=== PATIENT | female | born 1955 | race Hispanic/Latino ===

== ENCOUNTER 2017-12-12 11:01 | Emergency (ER) | payer OTHER ==
[2017-12-12] MEDS ORDERED: HYDROCODONE/APAP 7.5/325 MG TAB ONE (13:14)
--- NOTE | 2017-12-12 14:21 | ER ---
Nurse's Notes [facility] Name: Lynn Hdez Age: 62 yrs Sex: Female : 1955 Arrival Date: 12/12/2017 Time: 11:03 Bed 16 Private MD: MONTANA CIFUENTES Diagnosis: Hypertension poorly controlled, chronic back pain Presentation: 12/12 11:32 Presenting complaint: Patient states: High blood pressure readings at home. Instructed aj to come to ER by Hotel Service Supervisor. Transition of care: patient was not received from another setting of care. Onset of symptoms was December 10, 2017. Risk Assessment: Do you want to hurt yourself or someone else? Patient reports no desire to harm self or others. Initial Sepsis Screen: Does the patient meet any 2 criteria? No. Patient's initial sepsis screen is negative. Does the patient have a suspected source of infection? No. Patient's initial sepsis screen is negative. Care prior to arrival: None. 11:32 Method Of Arrival: Ambulatory 11:32 Acuity: COLTON 3 aj Triage Assessment: 11:34 General: Appears in no apparent distress. comfortable, Behavior is calm, cooperative, aj appropriate for age. Pain: Denies pain. Neuro: Level of Consciousness is awake, alert, obeys commands, Oriented to person, place, time, situation, Appropriate for age. Cardiovascular: Denies chest pain. Respiratory: Airway is patent Respiratory effort is even, unlabored, Respiratory pattern is regular, symmetrical. Derm: Skin is intact, is healthy with good turgor, Skin is pink, warm \T\ dry. normal. Historical: - Allergies: 11:34 Plavix; aj - PMHx: 11:34 Hypertension; Rheumatoid Arthritis; aj - PSHx: 11:34 CABG; Heart stents; aj - Immunization history:: Last tetanus immunization: up to date. - Social history:: Smoking status: Patient/guardian denies using tobacco. - Ebola Screening: : Patient negative for fever greater than or equal to 101.5 degrees Fahrenheit, and additional compatible Ebola Virus Disease symptoms Patient denies exposure to infectious person Patient denies travel to an Ebola-affected area in the 21 days before illness onset No symptoms or risks identified at this time. Screenin:19 Abuse screen: Denies threats or abuse. Nutritional screening: No deficits noted. em Tuberculosis screening: No symptoms or risk factors identified. Fall Risk None identified. Assessment: 12:00 General: Appears in no apparent distress. uncomfortable, Behavior is calm, cooperative. iw Pain: Complains of pain in lumbar area Pain currently is 8 out of 10 on a pain scale. Neuro: Level of Consciousness is awake, alert, obeys commands, Oriented to person, place, time, situation. Cardiovascular: Denies chest pain, Capillary refill < 3 seconds. Respiratory: Airway is patent Respiratory effort is even, unlabored, Respiratory pattern is regular, symmetrical. GI: No signs and/or symptoms were reported involving the gastrointestinal system. : No signs and/or symptoms were reported regarding the genitourinary system. EENT: No signs and/or symptoms were reported regarding the EENT system. Derm: Skin is intact, Skin is clammy. Musculoskeletal: Range of motion: intact in all extremities. 14:10 Reassessment: Patient appears in no apparent distress at this time. Patient and/or iw family updated on plan of care and expected duration. Pain level reassessed. Patient is alert, oriented x 3, equal unlabored respirations, skin warm/dry/pink. Dr. Miguel at bedside to discuss POC with pt, will go home with fentanyl patch and monitor BP 3-4 times per day. Vital Signs: 11:34 BP 173 / 62; Pulse 71; Resp 16; Temp 97.2; Pulse Ox 94% on R/A; Weight 96.62 kg; Height aj 5 ft. 2 in. (157.48 cm); 13:20 BP 160 / 74; Pulse 57; Resp 18; Pulse Ox 97% on R/A; Pain 5/10; em 14:39 BP 171 / 74; Pulse 67; Resp 18; Pulse Ox 97% on R/A; em 11:34 Body Mass Index 38.96 (96.62 kg, 157.48 cm) aj ED Course: 11:03 Patient arrived in ED. sb2 11:04 MONTANA CIFUENTES is Private Physician. sb2 11:33 Triage completed. aj 11:34 Arm band placed on left wrist. Patient placed in waiting room, Patient notified of wait aj time. 12:40 Efraín Miguel MD is Attending Physician. kdr 12:52 Lauro Mccullough LVN is Primary Nurse. em 13:19 Patient has correct armband on for positive identification. Placed in gown. Bed in low em position. Adult w/ patient. 13:19 No provider procedures requiring assistance completed. em 14:20 MONTANA CIFUENTES is Referral Physician. kdr 14:40 Patient did not have IV access during this emergency room visit. em Administered Medications: 13:10 Drug: Amigo (7.5 mg-325 mg) 1 tabs Route: PO; em 14:39 Follow up: Response: No adverse reaction; Pain is decreased em 14:38 Drug: fentaNYL Patch (50 mcg/hr) 1 patches Route: Transdermal; Site: anterior chest em wall; 14:39 Follow up: Response: Medication administered at discharge. em Outcome: 14:20 Discharge ordered by MD. kdr 14:40 Discharged to home ambulatory, with family. em 14:40 Condition: good 14:40 Discharge instructions given to patient, Instructed on discharge instructions, follow up and referral plans. Demonstrated understanding of instructions, follow-up care. 14:42 Patient left the ED. em Signatures: Malou Zaldivar RN Efraín Dean MD MD [facility] Lauro Mccullough, BREWERY TECHNICIAN BREWERY TECHNICIAN em Cora Laureano, RN PADILLA Krupa Jeter sb2
--- NOTE | 2017-12-12 14:21 | EDPHYS ---
Physician Documentation [facility] Name: Lynn Hdez Age: 62 yrs Sex: Female : 1955 Arrival Date: 12/12/2017 Time: 11:03 Bed 16 Private MD: MONTANA CIFUENTES ED Physician Efraín Miguel HPI: 12/12 17:40 This 62 yrs old Female presents to ER via Ambulatory with complaints of High kdr Blood Pressure. 17:40 The patient has elevated blood pressure and discovered this Has a long history - kdr recently poorly controlled. Onset: The symptoms/episode began/occurred gradually, at an unknown time. Modifying factors: The symptoms are aggravated by The symptoms are alleviated by. Modifying factors: The symptoms are aggravated by Nothing, The symptoms are alleviated by Nothing. Associated signs and symptoms: Pertinent positives: headache, Pertinent negatives:. Severity of symptoms: At its worst the blood pressure was moderate, in the emergency department the blood pressure is unchanged. The patient has not recently seen a physician. Historical: - Allergies: 11:34 Plavix; aj - PMHx: 11:34 Hypertension; Rheumatoid Arthritis; aj - PSHx: 11:34 CABG; Heart stents; aj - Immunization history:: Last tetanus immunization: up to date. - Social history:: Smoking status: Patient/guardian denies using tobacco. - Ebola Screening: : Patient negative for fever greater than or equal to 101.5 degrees Fahrenheit, and additional compatible Ebola Virus Disease symptoms Patient denies exposure to infectious person Patient denies travel to an Ebola-affected area in the 21 days before illness onset No symptoms or risks identified at this time. ROS: 17:40 Constitutional: Negative for fever, chills, and weight loss, Eyes: Negative for injury, kdr pain, redness, and discharge, ENT: Negative for injury, pain, and discharge, Neck: Negative for injury, pain, and swelling, Cardiovascular: Negative for chest pain, palpitations, and edema, Respiratory: Negative for shortness of breath, cough, wheezing, and pleuritic chest pain, Abdomen/GI: Negative for abdominal pain, nausea, vomiting, diarrhea, and constipation, Back: Negative for injury and pain, : Negative for injury, bleeding, discharge, and swelling, MS/Extremity: Negative for injury and deformity, Skin: Negative for injury, rash, and discoloration, Psych: Negative for depression, anxiety, suicide ideation, homicidal ideation, and hallucinations, Allergy/Immunology: Negative for hives, rash, and allergies, Endocrine: Negative for neck swelling, polydipsia, polyuria, polyphagia, and marked weight changes, Hematologic/Lymphatic: Negative for swollen nodes, abnormal bleeding, and unusual bruising. 17:40 Neuro: Positive for headache, Negative for altered mental status, dizziness, gait disturbance, hearing loss, loss of consciousness, numbness, seizure activity, speech changes, syncope, near syncope, tinnitus, tremor, visual changes, weakness. Exam: 17:40 Constitutional: This is a well developed, well nourished patient who is awake, alert, kdr and in no acute distress. Head/Face: Normocephalic, atraumatic. Eyes: Pupils equal round and reactive to light, extra-ocular motions intact. Lids and lashes normal. Conjunctiva and sclera are non-icteric and not injected. Cornea within normal limits. Periorbital areas with no swelling, redness, or edema. Neck: Trachea midline, no thyromegaly or masses palpated, and no cervical lymphadenopathy. Supple, full range of motion without nuchal rigidity, or vertebral point tenderness. No Meningismus. Chest/axilla: Normal chest wall appearance and motion. Nontender with no deformity. No lesions are appreciated. Cardiovascular: Regular rate and rhythm with a normal S1 and S2. No gallops, murmurs, or rubs. Normal PMI, no JVD. No pulse deficits. Respiratory: Lungs have equal breath sounds bilaterally, clear to auscultation and percussion. No rales, rhonchi or wheezes noted. No increased work of breathing, no retractions or nasal flaring. Abdomen/GI: Soft, non-tender, with normal bowel sounds. No distension or tympany. No guarding or rebound. No evidence of tenderness throughout. Back: No spinal tenderness. No costovertebral tenderness. Full range of motion. Skin: Warm, dry with normal turgor. Normal color with no rashes, no lesions, and no evidence of cellulitis. MS/ Extremity: Pulses equal, no cyanosis. Neurovascular intact. Full, normal range of motion. Neuro: Awake and alert, GCS 15, oriented to person, place, time, and situation. Cranial nerves II-XII grossly intact. Motor strength 5/5 in all extremities. Sensory grossly intact. Cerebellar exam normal. Normal gait. Psych: Awake, alert, with orientation to person, place and time. Behavior, mood, and affect are within normal limits. Vital Signs: 11:34 BP 173 / 62; Pulse 71; Resp 16; Temp 97.2; Pulse Ox 94% on R/A; Weight 96.62 kg; Height aj 5 ft. 2 in. (157.48 cm); 13:20 BP 160 / 74; Pulse 57; Resp 18; Pulse Ox 97% on R/A; Pain 5/10; em 14:39 BP 171 / 74; Pulse 67; Resp 18; Pulse Ox 97% on R/A; em 11:34 Body Mass Index 38.96 (96.62 kg, 157.48 cm) aj MDM: 14:20 Patient medically screened. kdr 17:40 Data reviewed: vital signs, nurses notes, lab test result(s). Counseling: I had a kdr detailed discussion with the patient and/or guardian regarding: the historical points, exam findings, and any diagnostic results supporting the discharge/admit diagnosis, lab results, the need for outpatient follow up. Administered Medications: 13:10 Drug: Talmo (7.5 mg-325 mg) 1 tabs Route: PO; em 14:39 Follow up: Response: No adverse reaction; Pain is decreased em 14:38 Drug: fentaNYL Patch (50 mcg/hr) 1 patches Route: Transdermal; Site: anterior chest em wall; 14:39 Follow up: Response: Medication administered at discharge. em Disposition: 12/12/17 14:20 Discharged to Home. Impression: Hypertension poorly controlled, chronic back pain. - Condition is Stable. - Discharge Instructions: Chronic Pain, Hypertension, [id number]. - Medication Reconciliation Form, Thank You Letter, Prescription Opioid Use form. - Follow up: MONTANA CIFUENTES; When: 2 - 3 days; Reason: If symptoms return, Further diagnostic work-up, Recheck today's complaints, Continuance of care, Re-evaluation by your physician. - Problem is an acute exacerbation. - Symptoms have improved. Signatures: Malou Zaldivar RN RN Efraín Pruett MD MD kdr Munoz, Edgar, APPLIANCE TECHNICIAN APPLIANCE TECHNICIAN em Corrections: (The following items were deleted from the chart) 14:42 14:20 12/12/2017 14:20 Discharged to Home. Impression: Hypertension poorly controlled, em chronic back pain. Condition is Stable. Forms are Medication Reconciliation Form, Thank You Letter, Antibiotic Education, Prescription Opioid Use. Follow up: MONTANA CIFUENTES; When: 2 - 3 days; Reason: If symptoms return, Further diagnostic work-up, Recheck today's complaints, Continuance of care, Re-evaluation by your physician. Problem is an acute exacerbation. Symptoms have improved. kdr
[2017-12-12] MEDS ORDERED: FENTANYL 50 MCG/PATCH TD ONE (14:39)
[2017-12-12 14:48] VITALS: TEMP 97.2
[2017-12-12 14:50] VITALS: O2SAT 97
[2017-12-12 14:52] VITALS: BP 171/74
== END 2017-12-12 14:42 | disposition home or self-care (01) ==
LOC: ER 11:01
DX: I10 Essential (primary) hypertension (principal); G89.29 Other chronic pain; Z88.8 Allergy status to other drugs, medicaments and biological substances
CPT/HCPCS: 99283

== ENCOUNTER 2018-02-17 15:23 | Observation (INO) | payer BC, OTHER ==
--- OUTSIDE RECORDS SUMMARY | 2018-02-17 15:25 | XMS REPORT | Clinical Summary ---
:1955 Author Organization [facility] Address [address] [place] [address] Care Team Providers Name Role Phone Rah Multani MD Primary Care Provider Unavailable Allergies Active Allergy Reactions Severity Noted Date Comments Clopidogrel Rash Low 01/16/2016 Medications Medication Sig Dispensed Refills Start End Status Date Date leflunomide (ARAVA) Take 20 mg by 1 Active 20 MG tablet mouth once daily. 6 RESTASIS 0.05 % INSTILL 1 DROP IN 1 Active ophthalmic emulsion BOTH EYES TWICE A 6 DAY pantoprazole TAKE 1 TABLET 3 Active (PROTONIX) 40 MG EC (40MG) BY ORAL 6 tablet ROUTE EVERY DAY HYDROcodone-acetami 0 Active nophen (NORCO) 7 5-325 mg per tablet ORENCIA 125 mg/mL 0 Active injection 7 predniSONE TAKE 1 TABLET 3 Active (DELTASONE) 5 mg DAILY NEEDED 8 tablet FOR PAIN carvedilol (COREG) Take 1 tablet (25 180 tablet 3 Active 25 MG mg total) by mouth 8 tabletIndications: 2 (two) times a Essential day. hypertension, Atherosclerosis of coronary artery, angina presence unspecified, unspecified vessel or lesion type, unspecified whether [place] or transplanted heart spironolactone Take 1 tablet 90 tablet 3 Active (ALDACTONE) 25 MG (25mg) by mouth 8 tabletIndications: daily Essential hypertension, Atherosclerosis of coronary artery, angina presence unspecified, unspecified vessel or lesion type, unspecified whether [place] or transplanted heart LUMIGAN 0.01 % 0 Active ophthalmic drops 8 rosuvastatin TAKE 1 TABLET 90 tablet 3 Active (CRESTOR) 40 MG NIGHTLY 8 tablet irbesartan (AVAPRO) Take 1 tablet (300 90 tablet 3 Active 300 MG tablet mg total) by mouth 8 019 nightly. nitroglycerin 1 under the tongue 100 tablet 3 Active (NITROSTAT) 0.4 MG as needed for 8 019 SL tablet angina, may repeat q5mins for up three doses hydrALAZINE Take 1 tablet (25 90 tablet 11 Active (APRESOLINE) 25 MG mg total) by mouth 8 019 tablet 3 (three) times a day. Use it as needed for a systolic BP over 180mmHg. carvedilol (COREG) TAKE 1 TABLET 180 tablet 1 Discontinued 25 MG tablet TWICE A DAY 7 018 spironolactone spironolactone 25 0 Discontinued (ALDACTONE) 25 MG mg tablet 018 tablet adalimumab (HUMIRA) Inject 40 mg under 0 Discontinued 20 mg/0.4 mL the skin every 14 018 injection kit (fourteen) days. metFORMIN XR Take 2 tablets 0 Discontinued (GLUCOPHAGE-XR) 750 every day by oral 018 mg 24 hr tablet route for 90 days. travoprost Travatan Z 0.004 % 0 Discontinued (TRAVATAN Z) 0.004 eye drops 018 % valsartan (DIOVAN) TAKE 1 TABLET 90 tablet 1 Discontinued 320 MG tablet DAILY 7 018 spironolactone TAKE 1 TABLET 90 tablet 2 Discontinued (ALDACTONE) 25 MG DAILY 7 018 tablet amLODIPine Take 1 tablet (5 90 tablet 3 Discontinued (NORVASC) 5 mg mg total) by mouth 7 018 tablet daily. valsartan (DIOVAN) TAKE 1 TABLET 90 tablet 3 Discontinued 320 MG tablet NIGHTLY 7 018 rosuvastatin TAKE 1 TABLET 90 tablet 3 Discontinued (CRESTOR) 40 MG NIGHTLY 7 018 tablet spironolactone TAKE 1 TABLET 90 tablet 2 Discontinued (ALDACTONE) 25 MG DAILY 8 018 tablet valsartan (DIOVAN) Take 1 tablet (320 90 tablet 3 Discontinued 320 MG mg total) by mouth 8 018 tabletIndications: nightly. Essential hypertension, Atherosclerosis of coronary artery, angina presence unspecified, unspecified vessel or lesion type, unspecified whether [place] or transplanted heart valsartan (DIOVAN) Take 1 tablet (320 30 tablet 3 Discontinued 320 MG mg total) by mouth 8 018 tabletIndications: nightly. Essential hypertension, Atherosclerosis of coronary artery, angina presence unspecified, unspecified vessel or lesion type, unspecified whether [place] or transplanted heart RESTASIS MULTIDOSE 0 Discontinued 0.05 % drops 8 018 irbesartan (AVAPRO) Take 1 tablet (300 90 tablet 3 Discontinued 300 MG tablet mg total) by mouth 8 018 nightly. Active Problems Problem Noted Date Venous insufficiency 02/11/2018 Last Assessment & Plan: Patient with symptomatic venous insufficiency. We discussed the etiology of venous disease in terms of obstruction and reflux. We used a wall anatomical chart to explain the various venous segments of involvement. The normal venous function and disorders of valvular reflux was discussed as well. Treatment options including venous stenting or reconstruction, venous ablation vs. stripping, phlebecto mies, sclerotherapy and compression treatment were all discussed. We discussed problems with persistent or recurrent symptoms. Risks including bleeding, DVT, nerve injury, infection, hematomas, and scarring we all covered. Reflux study from today reviewed by me. Plan: Rx given for 20-30 mmHg knee high compression stockings. I have also recommended elevating her legs when she is sitting around and staying active. 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 RTC in 2 months. 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 (Primary Dx) 11/13/2017 Hospital Radiology Rafita Pak Spinal stenosis of Encounter KMD Claribel lumbar region with neurogenic claudication 11/13/2017 Office Visit Orthopedic Surgery Rafita Pak Spinal stenosis aidan Spain MD lumbar region with neurogenic claudication (Primary Dx) 10/30/2017 Refill Cardiology Bekric, Sejla, Med Refill MA 10/22/2017 Orders Only Cardiology Buck, Jessi Y Essential hypertension; Atherosclerosis of coronary artery, angina presence unspecified, unspecified vessel or lesion type, unspecified whether [place] or transplanted heart 10/22/2017 Orders Only Cardiology Benjamin Stiles MD 10/03/2017 Office Visit Cardiology Linsey, Essential hypertension ( Primary Dx); Benjamin Alamo MD Atherosclerosis of coronary artery, angina presence unspecified, unspecified vessel or lesion type, unspecified whether [place] or transplanted heart 06/07/2017 Refill Cardiology Linsey, Med Refill Benjamin Alamo MD after 02/16/2017 Family History Medical History Relation Name Comments Heart disease Brother Heart disease Brother Diabetes Brother Ankit Cancer Father [place] Rheumatologic disease Maternal Uncle Ankit Heart disease Mother Heart disease Sister Cancer Sister Cynthia Diabetes Sister Cynthia Relation Name Status Comments Brother Brother Brother Ankit Father [place] Maternal Uncle Ankit Mother Sister Sister Cynthia Social History Tobacco Use Types Packs/Day Years Used Date Former Smoker Smokeless Tobacco: Never Used Tobacco Cessation: Counseling Given: No Comments: quit 37 yeras ago Alcohol Use Drinks/Week oz/Week Comments Yes occasional Sex Assigned at Date Recorded Not on file Job Start Date Occupation Industry Not on file Not on file Not on file Travel History Travel Start Travel End No recent travel history available. Last Filed Vital Signs Vital Sign Reading Time Taken Blood Pressure 185/76 02/11/2018 12:29 PM DIETITIAN HELPER Pulse 72 02/11/2018 12:29 PM DIETITIAN HELPER Temperature 36.6 C (97.9 F) 02/11/2018 12:29 PM DIETITIAN HELPER Respiratory Rate - - Oxygen Saturation - - Inhaled Oxygen Concentration - - Weight 95.3 kg (210 lb) 02/11/2018 12:29 PM DIETITIAN HELPER Height 157.5 cm (5' 2") 02/11/2018 12:29 PM DIETITIAN HELPER Body Mass Index 38.41 02/11/2018 12:29 PM DIETITIAN HELPER Plan of Treatment Date Type Specialty Care Team Description 04/15/2018 Office Visit Cardiovascular Philipp Horton MD [address] [facility] [address] [place] [address] [phone] 04/27/2018 Office Visit Rheumatology Adrián Yu MD [address] [place] [address] [phone] 06/26/2018 Office Visit Cardiology Benjamin Stiles MD [address] [facility] [address] [place] [address] [phone] Health Maintenance Due Date Last Done Comments MMR VACCINES (1 of 1 - Standard 1958 series) CERVICAL CANCER SCREENING 1978 BREAST CANCER SCREENING 07/23/2007 COLON CANCER SCREENING 07/23/2007 SHINGRIX VACCINE (1 of 2) 07/23/2007 ZOSTER VACCINE 2017 INFLUENZA VACCINE 11/05/2017 HEPATITIS B VACCINES Aged Out No longer eligible based on patient's age to complete this topic IPV VACCINES Aged Out No longer eligible based on patient's age to complete this topic MENINGOCOCCAL VACCINE Aged Out No longer eligible based on patient's age to complete this topic VARICELLA VACCINES Aged Out No longer eligible based on patient's age to complete this topic Implants Implanted Type Area System Administrator Device Shelf Model / Identifier Expiration Serial / Date Lot Nufix 5.0 Mm Lilibeth - [id number] - [id number] Spinal Bilateral NUTECH [id number] / Implanted: Qty: 1 on 05/17/2016 by Rafita Pak MD Implants : Back, [id number] / Other [id number] than Spine Nufix 5.0 Mm Dowel - [id number] - [id number] Spinal Bilateral NUTECH [id number] / Implanted: Qty: 1 on 05/17/2016 by Rafita Pak MD Implants : Back, [id number] / Other [id number] than Spine Procedures Procedure Name Priority Date/Time Associated Diagnosis Comments MRI LUMBAR SPINE W STAT 11/13/2017 1:17 Spinal stenosis of Results for this WO CONTRAST PM CDT lumbar region with procedure are in neurogenic the results claudication section. ESTIMATED GFR Routine 11/13/2017 12:45 Results for this PM CDT procedure are in the results section. POC CREATININE Routine 11/13/2017 12:45 Results for this PM CDT procedure are in the results section. NM MYOCARDIAL Routine 10/21/2017 Results for this PERFUSION procedure are in the results section. NM MYOCARDIAL Routine 10/05/2017 PERFUSION ECG 12-LEAD Routine 10/03/2017 9:01 Essential Results for this AM CDT hypertension procedure are in the results section. after 02/16/2017 Results MRI Lumbar Spine W Wo Contrast (11/13/2017 1:17 PM CDT) Narrative Performed At EXAMINATION:MRI LUMBAR SPINE W WO CONTRAST [facility] CLINICAL HISTORY:M48.062 Spinal stenosislumbar region with neurogenic claudication, SCS COMPARISON:MRI lumbar spine November 12, 2016. FINDINGS: L5-S1: There is marked spondylosis and degenerative change in the disc. There is grade 1 spondylolisthesis of L5 in relation S1 with bilateral spondylolysis at L5. There is moderate dorsal bulging of t he disc with possible subarticular disc protrusion again noted on the left side.. There is no spinal canal stenosis. There is marked foraminal stenosis bilaterally. L4-5: There is moderate to marked disc space narrowing, mild spondylosis and loss of normal signal intensity in the disc. There is grade 1 spondylolisthesis of L4 in relation L5 with marked degenerative and hypertrophic changes in the facet joints. There are postoperative laminotomy changes bilaterally. There is broad dorsal bulging of the disc. There is moderate to marked (6 mm) thecal sac stenosis. There is marked foraminal stenosis bilaterally. L3-4: There is mild spondylosis and loss of normal signal intensity in the disc. There is slight retrolisthesis of L3 in relation L4. There is very mild dorsal bulging of the disc. There are moderate hy pertrophic changes the facet joints and thickening of the ligamentum flavum. These changes result in moderate to marked (6 mm) thecal sac stenosis. There is at least moderate foraminal stenosis bilaterally. L2-3: There is slight retrolisthesis of L2 in relation L3. There is some mild spondylosis, disc space narrowing and loss of normal signal intensity in the disc. There is mild dorsal bulging of the disc and there are moderate degenerative and hypertrophic changes in the facet joints. There is no significant spinal canal stenosis. There is moderate foraminal stenosis bilaterally with some extension of the disc into the inferior neural foramina bilaterally. L1-2: There is no significant abnormality at this level. Imaging of the thoracolumbar junction in the sagittal plane only demonstrates marked ventral spondylosis and mild degenerative changes in the discs at T10-11 and T9-10 without stenosis. There is no evidence of a conus lesion. IMPRESSION: Postoperative and marked degenerative changes in the lumbar spine with multilevel spinal canal and foraminal stenosis.. The spinal canal stenosis at L4 -5 and L3-4 appears slightly greater than that seen on the prior study. Otherwise there's been no definite interval change. [facility]-[id number] Procedure Note Hm Interface, Radiology Results - 11/13/2017 2:11 PM CDT EXAMINATION: MRI LUMBAR SPINE W WO CONTRAST CLINICAL HISTORY: M48.062 Spinal stenosis lumbar region with neurogenic claudication, SCS COMPARISON: MRI lumbar spine November 12, 2016. FINDINGS: L5-S1: There is marked spondylosis and degenerative change in the disc. There is grade 1 spondylolisthesis of L5 in relation S1 with bilateral spondylolysis at L5. There is moderate dorsal bulging of the disc with possible subarticular disc protrusion again noted on the left side.. There is no spinal canal stenosis. There is marked foraminal stenosis bilaterally. L4-5: There is moderate to marked disc space narrowing, mild spondylosis and loss of normal signal intensity in the disc. There is grade 1 spondylolisthesis of L4 in relation L5 with marked degenerative and hypertrophic changes in the facet joints. There are postoperative laminotomy changes bilaterally. There is broad dorsal bulging of the disc. There is moderate to marked (6 mm) thecal sac stenosis. There is marked foraminal stenosis bilaterally. L3-4: There is mild spondylosis and loss of normal signal intensity in the disc. There is slight retrolisthesis of L3 in relation L4. There is very mild dorsal bulging of the disc. There are moderate hypertrophic changes the facet joints and thickening of the ligamentum flavum. These changes result in moderate to marked (6 mm) thecal sac stenosis. There is at least moderate foraminal stenosis bilaterally. L2-3: There is slight retrolisthesis of L2 in relation L3. There is some mild spondylosis, disc space narrowing and loss of normal signal intensity in the disc. There is mild dorsal bulging of the disc and there are moderate degenerative and hypertrophic changes in the facet joints. There is no significant spinal canal stenosis. There is moderate foraminal stenosis bilaterally with some extension of the disc into the inferior neural foramina bilaterally. L1-2: There is no significant abnormality at this level. Imaging of the thoracolumbar junction in the sagittal plane only demonstrates marked ventral spondylosis and mild degenerative changes in the discs at T10-11 and T9-10 without stenosis. There is no evidence of a conus lesion. IMPRESSION: Postoperative and marked degenerative changes in the lumbar spine with multilevel spinal canal and foraminal stenosis.. The spinal canal stenosis at L4 -5 and L3-4 appears slightly greater than that seen on the prior study. Otherwise there's been no definite interval change. [facility]-[id number] Performing Organization Address City/State/Zipcode Phone Number [facility] [address] [place] [address] Estimated GFR (11/13/2017 12:45 PM CDT) GFR Non Af Amer >90 mL/min/1.73 m2 [facility] DEPARTMENT OF PATHOLOGY AND GENOMIC MEDICINE GFR Af Amer >90 mL/min/1.73 m2 [facility] DEPARTMENT OF Comment: PATHOLOGY AND GENOMIC Chronic kidney disease: <60 mL/min/1.73m2 MEDICINE Kidney failure: <15 mL/min/1.73m2 The estimated GFR is calculated from the IDMS-traceable Modification of Diet in Renal Disease Equation. The accuracy of the calculation is poor when the creatinine is normal. Calculated values >90 mL/min/1.73m2 are not reported. This equation has not been validated in children (<18 years), women, the elderly (>70 years), or ethnic groups other than Caucasians and Americans. Specimen Blood Performing Organization Address City/State/Zipcode Phone Number [facility] DEPARTMENT OF PATHOLOGY AND [address] [place] [address] GENOMIC MEDICINE POC creatinine (11/13/2017 12:45 PM CDT) POC creatinine 0.6 0.5 - 0.9 mg/dl [facility] DEPARTMENT OF PATHOLOGY Comment: AND GENOMIC MEDICINE Meter ID: [id number] Silicator: Karen Yao Specimen Blood Performing Organization Address [facility] Phone Number [facility] DEPARTMENT OF PATHOLOGY AND [address] [place] [address] GENOMIC MEDICINE Nm myocardial perfusion (10/21/2017)Only the most recent of2 resultswithin the time period is included. Narrative Performed At ECG 12 lead (10/03/2017 9:01 AM CDT) Ventricular rate 54 [facility] Atrial rate 54 [facility] SC interval 132 [facility] QRSD interval 100 [facility] QT interval 444 [facility] QTC interval 421 [facility] P axis 1 32 [facility] QRS axis 1 74 [facility] T wave axis 98 [facility] EKG impression Sinus bradycardia with sinus arrhythmia-Incomplete right bundle branch block-Nonspecific T wave abnormality-Abnormal ECG-In automated comparison with ECG of 13-NOV-2016 13:42,-Nonspecific T wave abnorma [facility] lity, worse in Lateral leads- Performing Organization Address City/[facility] Phone Number [facility] MUSE [address] [place] [address] after 02/16/2017 Insurance Payer Benefit Plan / Group Subscriber ID Type Phone Address BCBS BCBS CHOICE PPO/[employer] PPO xxxxxxxxxxxx PPO Advance Directives Patient has advance care planning documents on file. For more information, please contact:Clint Dubon[address] [place] [address]
[2018-02-17 16:06] LABS: Absolute Monocytes 0.9 K/uL (0.1-1.3); Absolute Neutrophil 5.3 K/uL (1.8-8.0); Basophils % 0.8 % (0-1.3); Hematocrit 44.1 % (36.0-45.0); Lymphocytes % 23.5 % (15.3-44.8); MCH 29.4 pg (27.0-35.0); MCV 87.2 fL (80-100); MPV 9.9 fL (7.6-11.3); Monocytes % 10.3 % (3.3-12.3); RBC Red Blood Cell Count 5.06 M/uL (3.86-4.86)
[2018-02-17 16:07] LABS: Protime INR 0.92
[2018-02-17 16:22] LABS: ALT/SGPT 32 U/L (12-78); AST/SGOT 20 U/L (15-37); Albumin 3.4 g/dL (3.4-5.0); Alkaline Phosphatase 74 U/L (45-117); BUN Blood Urea Nitrogen 16 mg/dL (7-18); Bicarbonate 28 mmol/L (21-32); Bilirubin Direct 0.1 mg/dL (0-0.2); Bilirubin Total 0.4 mg/dL (0.2-1.0); Glucose Level 137 mg/dL (74-106); Lipase 194 U/L (73-393); NT PRO-BNP 137 pg/mL (<125); Potassium 3.8 mmol/L (3.5-5.1); Protein, Total 7.1 g/dL (6.4-8.2); Sodium Level 141 mmol/L (136-145); Troponin I < 0.02 ng/mL (0.0-0.045)
--- NOTE | 2018-02-17 17:13 | ER ---
Nurse's Notes [facility] Name: Lynn Hdez Age: 62 yrs Sex: Female : 1955 Arrival Date: 02/17/2018 Time: 15:27 Bed 7 Private MD: Diagnosis: Chest pain, unspecified;Essential (primary) hypertension Presentation: 02/17 15:30 Presenting complaint: Patient states: left sided chest pain with radiation to the left sv face, neck, shoulder and arm x 1 day. c/o SOB and fatigue over the last couple of weeks. Transition of care: patient was not received from another setting of care. Onset of symptoms was February 16, 2018. Risk Assessment: Do you want to hurt yourself or someone else? Patient reports no desire to harm self or others. Initial Sepsis Screen: Does the patient meet any 2 criteria? No. Patient's initial sepsis screen is negative. Does the patient have a suspected source of infection? No. Patient's initial sepsis screen is negative. Care prior to arrival: None. 15:30 Method Of Arrival: Wheelchair sv 15:30 Acuity: COLTON 3 sv Triage Assessment: 15:30 General: Appears in no apparent distress. uncomfortable, well developed, Behavior is sv calm, cooperative, appropriate for age. Pain: Complains of pain in left side of forehead, left temporal area, left eye, left voodoo, left side of the nose, left zygomatic area, left cheek, left mandible, anterior aspect of left upper chest, left breast, left arm and left posterior aspect of neck Pain currently is 7 out of 10 on a pain scale. Quality of pain is described as sharp, Pain began 1 day ago. Is intermittent. EENT: No signs and/or symptoms were reported regarding the EENT system. Neuro: Level of Consciousness is awake, alert, obeys commands, Oriented to person, place, time, situation, Moves all extremities. Full function Gait is steady, Speech is normal. Cardiovascular: Patient's skin is warm and dry. Rhythm is sinus bradycardia. Respiratory: Reports shortness of breath on exertion Respiratory effort is even, unlabored, Respiratory pattern is regular, symmetrical. Derm: Skin is pink, warm \T\ dry. Historical: - Allergies: 15:55 Plavix; sv - Home Meds: 15:55 Coreg 25 mg Oral tab [Active]; irbesartan 300 mg oral tab [Active]; spironolactone 25 sv mg Oral tab [Active]; rosuvastatin 40 mg oral tab [Active]; aspirin 81 mg Oral chew [Active]; Protonix 40 mg Oral grps [Active]; leflunomide 20 mg oral tab [Active]; prednisone 5 mg Oral tab [Active]; Orencia 125 mg/mL subcutaneous syrg [Active]; hydralazine 25 mg Oral tab TID prn [Active]; nitroglycerin 0.4 mg SL subl 1 tab every 5 minutes [Active]; - PMHx: 15:55 Hypertension; Rheumatoid Arthritis; sv - PSHx: 15:55 CABG; Heart stents; Hysterectomy; sv - Immunization history:: Flu vaccine is up to date. - Social history:: Smoking status: Patient/guardian denies using tobacco, Patient uses alcohol, but reports only rare drinking. - Ebola Screening: : No symptoms or risks identified at this time. - Family history:: not pertinent. Screenin:17 Abuse screen: Denies threats or abuse. Denies injuries from another. Nutritional sv screening: No deficits noted. Tuberculosis screening: No symptoms or risk factors identified. Fall Risk None identified. Assessment: 16:20 Reassessment: Patient and/or family updated on plan of care and expected duration. Pain sv level reassessed. Patient is alert, oriented x 3, equal unlabored respirations, skin warm/dry/pink. Cardiovascular: Heart tones S1 S2 present. Respiratory: Respiratory effort is even, unlabored, Respiratory pattern is regular, symmetrical, Breath sounds are clear bilaterally. 17:30 Reassessment: Patient appears in no apparent distress at this time. No changes from sv previously documented assessment. Patient and/or family updated on plan of care and expected duration. Pain level reassessed. Patient is alert, oriented x 3, equal unlabored respirations, skin warm/dry/pink. 18:25 Reassessment: Patient appears in no apparent distress at this time. No changes from sv previously documented assessment. Patient and/or family updated on plan of care and expected duration. Pain level reassessed. Patient is alert, oriented x 3, equal unlabored respirations, skin warm/dry/pink. 19:27 Reassessment: Patient appears in no apparent distress at this time. Patient is alert, lp1 oriented x 3, equal unlabored respirations, skin warm/dry/pink. Patient denies pain at this time. Reassessment: Patient aware of pending admission; ambulated independently to bathroom at this time. Pain: Complains of pain in chest Pain does not radiate. Vital Signs: 15:55 BP 187 / 78; Pulse 58; Resp 20; Pulse Ox 96% ; Weight 95.25 kg; Height 5 ft. 2 in. sv (157.48 cm); Pain 7/10; 16:11 BP 150 / 64; Pulse 54; Resp 20; Pulse Ox 98% on 2 lpm NC; sv 16:50 BP 167 / 56; Pulse 59; Resp 24; Pulse Ox 98% on 2 lpm NC; sv 17:30 BP 171 / 62; Pulse 55; Resp 14; Pulse Ox 99% on 2 lpm NC; sv 18:00 BP 141 / 56; Pulse 52; Resp 18; Pulse Ox 99% on 2 lpm NC; sv 18:30 BP 111 / 56; Pulse 62; Resp 20; Pulse Ox 99% on 2 lpm NC; sv 19:22 BP 133 / 59; Pulse 60; Resp 22; Temp 97.6(O); Pulse Ox 97% on R/A; lp1 19:37 BP 139 / 61; Pulse 54; Resp 20; Pulse Ox 97% on R/A; Pain 0/10; lp1 15:55 Body Mass Index 38.41 (95.25 kg, 157.48 cm) sv ED Course: 15:27 Patient arrived in ED. as 15:30 Terrie Dave, RN is Primary Nurse. sv 15:30 Arm band placed on Patient placed in an exam room, on a stretcher, on site monitor, sv on pulse oximetry. 15:30 Patient has correct armband on for positive identification. Placed in gown. Bed in low sv position. Call light in reach. Adult w/ patient. air sampling and monitoring on. Pulse ox on. NIBP on. Door closed. Head of bed elevated. 15:33 Rambo Palomares MD is Attending Physician. [facility] 15:40 Initial lab(s) drawn, by me, sent to lab. Inserted saline lock: 20 gauge in right sv antecubital area, using aseptic technique. Blood collected. Flushed right forearm with 5 ml normal saline. 15:40 Oxygen administration via nasal cannula \T\ 2L/min. sv 15:52 Triage completed. sv 16:05 Protime (+INR) Sent. sv 16:05 CBC with Automated Diff Sent. sv 16:05 Lipase Sent. sv 16:05 Magnesium Sent. sv 16:05 NT PRO-BNP Sent. sv 16:05 Troponin I Sent. sv 16:05 Liver (Hepatic) Function Sent. sv 16:05 Basic Metabolic Panel Sent. sv 16:06 Basic Metabolic Panel Sent. sv 16:06 CBC with Diff Sent. sv 16:14 EKG done, by oil bay technician. reviewed by Rambo Palomares MD. sm3 16:30 Awaiting ED provider evaluation. sv 16:50 ED physician to see patient. sv 16:55 X-ray completed. Portable x-ray completed in exam room. Patient tolerated procedure jb2 well. 16:56 XRAY Chest (1 view) In Process Unspecified. EDMS 17:12 Germaine Perkins MD is Hospitalizing Provider. parker 18:26 Awaiting bed assignment. sv 19:05 Report given to Yael CUASEY and Kym CAUSEY. sv 19:06 Primary Nurse role handed off by Terrie Dave RN sv 19:21 Yael Tsai RN is Primary Nurse. lp1 19:23 No provider procedures requiring assistance completed. Patient admitted, IV remains in lp1 place. Administered Medications: 17:30 Drug: Aspirin 162 mg Route: PO; sv 18:25 Follow up: Response: No adverse reaction sv 17:30 Drug: Lovenox 1 mg/kg Route: Sub-Q; Site: right lower abdomen; sv 18:24 Follow up: Response: No adverse reaction sv 17:30 Drug: morphine 2 mg Route: IVP; Site: right antecubital; sv 18:24 Follow up: Response: No adverse reaction sv 17:30 Drug: Zofran 4 mg Route: IVP; Site: right antecubital; sv 18:24 Follow up: Response: No adverse reaction sv 18:30 Not Given ( cancelled): NS 0.9% 1000 ml IV at 125 ml/hr continuous sv Outcome: 17:12 Decision to Hospitalize by Provider. parker 19:23 Condition: stable lp1 19:23 Instructed on the need for admit. 19:39 Admitted to Tele accompanied by tech, via wheelchair, room 419, with chart, Report lp1 called to PADILLA Chavarria 20:00 Patient left the ED. lp1 Signatures: Dispatcher [employer] EDMS Terrie Dave RN RN sv Anderson, Corey, MD MD cha Buechter, Jesse jb2 Jyothi Nguyen Laura, RN RN lp1 Jaquelin Olvera sm3 Corrections: (The following items were deleted from the chart) 19:27 19:22 BP 133 / 59; Pulse 60bpm; Resp 22bpm; Pulse Ox 97% 2 lpm Nasal Cannula; lp1 lp1 19:38 19:37 BP 139 / 61; Pulse 54bpm; Resp 20bpm; Pulse Ox 97% RA; lp1 lp1 20:21 20:20 Patient left the ED. lp1 lp1
--- NOTE | 2018-02-17 17:14 | EDPHYS ---
Physician Documentation [facility] Name: Lynn Hdez Age: 62 yrs Sex: Female : 1955 Arrival Date: 02/17/2018 Time: 15:27 Bed 7 Private MD: ROLANDO Physician Rambo Palomares HPI: 02/17 17:08 This 62 yrs old Female presents to ER via Wheelchair with complaints of Chest parker Pain, Shortness Of Breath, Back Pain, Neck Pain, <24hrs Old. 17:08 The patient or guardian reports chest pain that is located primarily in the anterior parker chest wall, left. Onset: today. The pain radiates to left neck, Associated signs and symptoms: Pertinent positives: shortness of breath. The chest pain is described as a pressure. Modifying factors: The symptoms are alleviated by nothing. the symptoms are aggravated by nothing. The patient has not experienced similar symptoms in the past. Historical: - Allergies: 15:55 Plavix; sv - Home Meds: 15:55 Coreg 25 mg Oral tab [Active]; irbesartan 300 mg oral tab [Active]; spironolactone 25 sv mg Oral tab [Active]; rosuvastatin 40 mg oral tab [Active]; aspirin 81 mg Oral chew [Active]; Protonix 40 mg Oral grps [Active]; leflunomide 20 mg oral tab [Active]; prednisone 5 mg Oral tab [Active]; Orencia 125 mg/mL subcutaneous syrg [Active]; hydralazine 25 mg Oral tab TID prn [Active]; nitroglycerin 0.4 mg SL subl 1 tab every 5 minutes [Active]; - PMHx: 15:55 Hypertension; Rheumatoid Arthritis; sv - PSHx: 15:55 CABG; Heart stents; Hysterectomy; sv - Immunization history:: Flu vaccine is up to date. - Social history:: Smoking status: Patient/guardian denies using tobacco, Patient uses alcohol, but reports only rare drinking. - Ebola Screening: : No symptoms or risks identified at this time. - Family history:: not pertinent. ROS: 17:08 Constitutional: Negative for fever, chills, and weight loss, Eyes: Negative for injury, parker pain, redness, and discharge, ENT: Negative for injury, pain, and discharge, Neck: Negative for injury, pain, and swelling, Respiratory: Negative for shortness of breath, cough, wheezing, and pleuritic chest pain, Abdomen/GI: Negative for abdominal pain, nausea, vomiting, diarrhea, and constipation, Back: Negative for injury and pain, : Negative for injury, bleeding, discharge, and swelling, MS/Extremity: Negative for injury and deformity, Skin: Negative for injury, rash, and discoloration, Neuro: Negative for headache, weakness, numbness, tingling, and seizure, Psych: Negative for depression, anxiety, suicide ideation, homicidal ideation, and hallucinations, Allergy/Immunology: Negative for hives, rash, and allergies, Endocrine: Negative for neck swelling, polydipsia, polyuria, polyphagia, and marked weight changes. 17:08 Cardiovascular: Positive for chest pain. Exam: 17:08 Constitutional: This is a well developed, well nourished patient who is awake, alert, parker and in no acute distress. Head/Face: Normocephalic, atraumatic. Eyes: Pupils equal round and reactive to light, extra-ocular motions intact. Lids and lashes normal. Conjunctiva and sclera are non-icteric and not injected. Cornea within normal limits. Periorbital areas with no swelling, redness, or edema. ENT: Nares patent. No nasal discharge, no septal abnormalities noted. Tympanic membranes are normal and external auditory canals are clear. Oropharynx with no redness, swelling, or masses, exudates, or evidence of obstruction, uvula midline. Mucous membranes moist. Neck: Trachea midline, no thyromegaly or masses palpated, and no cervical lymphadenopathy. Supple, full range of motion without nuchal rigidity, or vertebral point tenderness. No Meningismus. Chest/axilla: Normal chest wall appearance and motion. Nontender with no deformity. No lesions are appreciated. Cardiovascular: Regular rate and rhythm with a normal S1 and S2. No gallops, murmurs, or rubs. Normal PMI, no JVD. No pulse deficits. Respiratory: Lungs have equal breath sounds bilaterally, clear to auscultation and percussion. No rales, rhonchi or wheezes noted. No increased work of breathing, no retractions or nasal flaring. Back: No spinal tenderness. No costovertebral tenderness. Full range of motion. Female : Normal external genitalia. Skin: Warm, dry with normal turgor. Normal color with no rashes, no lesions, and no evidence of cellulitis. MS/ Extremity: Pulses equal, no cyanosis. Neurovascular intact. Full, normal range of motion. Neuro: Awake and alert, GCS 15, oriented to person, place, time, and situation. Cranial nerves II-XII grossly intact. Motor strength 5/5 in all extremities. Sensory grossly intact. Cerebellar exam normal. Normal gait. Psych: Awake, alert, with orientation to person, place and time. Behavior, mood, and affect are within normal limits. 17:08 Chest/axilla: Inspection: normal, Palpation: is normal, no acute changes, Axilla: are normal, Breasts: are normal, no acute changes. 17:08 Abdomen/GI: Inspection: abdomen appears normal, Bowel sounds: normal, Palpation: nontender. Vital Signs: 15:55 BP 187 / 78; Pulse 58; Resp 20; Pulse Ox 96% ; Weight 95.25 kg; Height 5 ft. 2 in. sv (157.48 cm); Pain 7/10; 16:11 BP 150 / 64; Pulse 54; Resp 20; Pulse Ox 98% on 2 lpm NC; sv 16:50 BP 167 / 56; Pulse 59; Resp 24; Pulse Ox 98% on 2 lpm NC; sv 17:30 BP 171 / 62; Pulse 55; Resp 14; Pulse Ox 99% on 2 lpm NC; sv 18:00 BP 141 / 56; Pulse 52; Resp 18; Pulse Ox 99% on 2 lpm NC; sv 18:30 BP 111 / 56; Pulse 62; Resp 20; Pulse Ox 99% on 2 lpm NC; sv 19:22 BP 133 / 59; Pulse 60; Resp 22; Temp 97.6(O); Pulse Ox 97% on R/A; lp1 19:37 BP 139 / 61; Pulse 54; Resp 20; Pulse Ox 97% on R/A; Pain 0/10; lp1 15:55 Body Mass Index 38.41 (95.25 kg, 157.48 cm) sv MDM: 15:33 Patient medically screened. [facility] 17:11 Data reviewed: vital signs, nurses notes, lab test result(s), EKG, radiologic studies, [facility] plain films. 02/17 15:37 Order name: Basic Metabolic Panel [facility] 02/17 15:37 Order name: CBC with Diff [facility] 02/17 15:37 Order name: LFT's [facility] 02/17 15:37 Order name: Magnesium [facility] 02/17 15:37 Order name: NT PRO-BNP [facility] 02/17 15:37 Order name: PT-INR [facility] 02/17 15:37 Order name: Troponin (emerg Dept Use Only) [facility] 02/17 15:37 Order name: Lipase [facility] 02/17 15:57 Order name: Basic Metabolic Panel [facility] 02/17 15:57 Order name: CBC with Automated Diff [facility] 02/17 15:58 Order name: Basic Metabolic Panel; Complete Time: 16:53 [facility] 02/17 15:58 Order name: Liver (Hepatic) Function; Complete Time: 16:53 [facility] 02/17 15:58 Order name: Troponin I; Complete Time: 16:53 [facility] 02/17 15:58 Order name: NT PRO-BNP; Complete Time: 16:53 [facility] 02/17 15:37 Order name: XRAY Chest (1 view); Complete Time: 19:[address] [facility] 02/17 15:37 Order name: EKG; Complete Time: 15:[address] [facility] 02/17 15:37 Order name: Cardiac monitoring; Complete Time: 15:[address] [facility] 02/17 15:37 Order name: EKG - Nurse/Tech; Complete Time: 15:[address] [facility] 02/17 15:37 Order name: IV Saline Lock; Complete Time: 16:[address] [facility] 02/17 15:58 Order name: Magnesium; Complete Time: 16:53 [facility] 02/17 15:58 Order name: Lipase; Complete Time: 16:53 [facility] 02/17 15:58 Order name: CBC with Automated Diff; Complete Time: 16:53 [facility] 02/17 15:58 Order name: Protime (+INR); Complete Time: 16:53 [facility] 02/17 17:17 Order name: CONS Physician Consult [facility] 02/17 19:32 Order name: Urine Dipstick--Ancillary (enter results) [facility] 02/17 15:37 Order name: Labs collected and sent; Complete Time: 16:[address] [facility] 02/17 15:37 Order name: O2 Per Protocol; Complete Time: 15:[address] [facility] 02/17 15:37 Order name: O2 Sat Monitoring; Complete Time: 15:[address] [facility] 02/17 15:37 Order name: Urine Dipstick-Ancillary (obtain specimen); Complete Time: 19:22 parker Administered Medications: 17:30 Drug: Aspirin 162 mg Route: PO; sv 18:25 Follow up: Response: No adverse reaction sv 17:30 Drug: Lovenox 1 mg/kg Route: Sub-Q; Site: right lower abdomen; sv 18:24 Follow up: Response: No adverse reaction sv 17:30 Drug: morphine 2 mg Route: IVP; Site: right antecubital; sv 18:24 Follow up: Response: No adverse reaction sv 17:30 Drug: Zofran 4 mg Route: IVP; Site: right antecubital; sv 18:24 Follow up: Response: No adverse reaction sv 18:30 Not Given (MD cancelled): NS 0.9% 1000 ml IV at 125 ml/hr continuous sv Disposition: 02/17/18 17:12 Hospitalization ordered by Germaine Perkins for Observation. Preliminary diagnosis are Chest pain, unspecified, Essential (primary) hypertension. - Bed requested for Telemetry/MedSurg (observation). - Status is Observation. lp1 - Condition is Fair. - Problem is new. - Symptoms have improved. UTI on Admission? No Signatures: Dispatcher [employer] EDMS Nicole Iglesias Stephanie, RN RN Rambo Harrington MD MD cha Pena, Laura RN RN lp1 Corrections: (The following items were deleted from the chart) 18:49 17:12 Hospitalization Ordered by Germaine Perkins MD for Observation. Preliminary bd diagnosis is Chest pain, unspecified; Essential (primary) hypertension. Bed requested for Telemetry/MedSurg (observation). Status is Observation. Condition is Fair. Problem is new. Symptoms have improved. UTI on Admission? No. parker 20:20 18:49 02/17/2018 17:12 Hospitalization Ordered by Germaine Perkins MD for Observation. lp1 Preliminary diagnosis is Chest pain, unspecified; Essential (primary) hypertension. Bed requested for Telemetry/MedSurg (observation). Status is Observation. Condition is Fair. Problem is new. Symptoms have improved. UTI on Admission? No. bd
[2018-02-17] MEDS ORDERED: ASPIRIN 81 MG CHEWABLE TABLET ONE (17:19)
[2018-02-17] MEDS ORDERED: ENOXAPARIN 100 MG/ML SYR SQ ONE (17:19)
[2018-02-17] MEDS ORDERED: ONDANSETRON 4 MG/2 ML VIAL ONE (17:19)
[2018-02-17] MEDS ORDERED: NA CHLORIDE 0.9% 1,000 ML ONE (17:19)
[2018-02-17] MEDS ORDERED: MORPHINE 4 MG/ML SYR ONE (17:19)
--- NOTE | 2018-02-17 17:46 | RAD REPORT ---
EXAM DESCRIPTION: RAD - Chest Single View - 02/17/2018 5:05 pm CLINICAL HISTORY: COUGH Chest pain. COMPARISON: CHEST PA AND LAT 2 VIEW dated 02/02/2014; CHEST SINGLE VIEW dated 02/03/2012; CHEST SING LE VIEW dated 08/25/2008; CHEST SINGLE VIEW dated 11/27/2004 FINDINGS: Portable technique limits examination quality. The lungs are grossly clear. The heart is upper limit normal in size. No displaced fractures.[place]oto my wires noted. IMPRESSION: No acute intrathoracic process suspected.
[2018-02-17 20:32] LABS: Urine Blood NEGATIVE (NEG); Urine Glucose NEGATIVE (NEG); Urine Protein NEGATIVE (NEG)
[2018-02-17 20:37] VITALS: BMI 30.8
[2018-02-17] MEDS ORDERED: ONDANSETRON 4 MG/2 ML VIAL IV PRN (20:44)
[2018-02-17] MEDS: ACETAMINOPHEN 500 MG TAB PO PRN (22:38)
--- NOTE | 2018-02-17 23:49 | P.HP ---
Certification for Inpatient Patient admitted to: Observation With expected LOS: <2 Midnights Practitioner: I am a practitioner with admitting privileges, knowledge of patient current condition, hospital course, and medical plan of care. Services: Services provided to patient in accordance with Admission requirements found in Title 42 Section 412.3 of the Code of Federal Regulations Patient History Date of Service: 02/17/18 Reason for admission: Chest pain History of Present Illness: Ms Hdez is a 62-year-old woman with history of coronary artery disease, status post stent placement and CABG, hypertension, who came to the hospital complaining of chest pain, pressure like, radiates to the back and left side of the neck, 7/10 of intensity. The pain lasts for a couple of hr, she denied any nausea or diaphoresis, however, he has had some shortness of breath. Lab work remarkable for normal WBC count, troponin I negative. EKG shows normal sinus rhythm at about [address]-T abnormality. The Allergies clopidogrel bisulfate [From Plavix] Allergy (Intermediate, Verified 02/17/18 21: 51) Itching/Hives/Rash Home medications list reviewed: Yes Home Medications: Abatacept [Orencia] 125 mg SQ EVERY 7TH DAY 02/17/18 Aspirin [Aspirin EC 81 MG] 81 mg PO DAILY 02/17/18 Bimatoprost [Lumigan] 1 gtt OP BEDTIME 02/17/18 Carvedilol [Coreg] 25 mg PO BID 02/17/18 Cyclosporine [Restasis] 1 drop EACH EYE BID 02/17/18 Hydralazine [Apresoline] 25 mg PO TID PRN 02/17/18 Irbesartan [Avapro] 300 mg PO BEDTIME 02/17/18 Leflunomide [Arava] 20 mg PO DAILY 02/17/18 Nitroglycerin [Nitrostat] 0.4 mg SL DAILY PRN 02/17/18 Pantoprazole Sodium 40 mg PO DAILY 02/17/18 Rosuvastatin Calcium [Crestor] 40 mg PO BEDTIME 02/17/18 Spironolactone [Aldactone] 25 mg PO DAILY 02/17/18 predniSONE [Deltasone] 2 tab PO DAILY PRN 02/17/18 - Past Medical/Surgical History Has patient received pneumonia vaccine in the past: Yes Diabetic: No -: HTN -: RA -: Bigh Cholesterol -: Sleep Apnea -: Back sx -: Double Bypass -: insertion of stents x3 -: Hysterectomy -: Left big toe sx - Family History Father -: Cancer Notes: colon and pancreatic cancer Mother -: Heart disease Notes: pace maker, rheumatic fever Brother -: Heart disease, Diabetes Sister -: Heart disease, Diabetes - Social History Smoking Status: Former smoker Alcohol use: Yes CD- Drugs: No Caffeine use: Yes Place of Residence: Home Review of Systems 10-point ROS is otherwise unremarkable Physical Examination - Vital Signs Temperature: 97.6 F Blood Pressure: 176/73 Pulse: 57 Respirations: 19 Pulse Ox (%): 97 - Physical Exam General: Alert, In no apparent distress HEENT: Atraumatic, PERRLA, Mucous membr. moist/pink, EOMI, Sclerae nonicteric Neck: Supple, 2+ carotid pulse no bruit, No LAD, Without JVD or thyroid abnormality Respiratory: Clear to auscultation bilaterally, Normal air movement Cardiovascular: Regular rate/rhythm, Normal S1 S2 Gastrointestinal: Normal bowel sounds, No tenderness Musculoskeletal: No tenderness Integumentary: No rashes Neurological: Normal speech, Normal strength at 5/5 x4 extr, Normal tone, Normal affect Lymphatics: No axilla or inguinal lymphadenopathy - Studies Laboratory Data (last 24 hrs) 02/17/18 15:40: PT 10.9, INR 0.92 02/17/18 15:40: WBC 8.5, Hgb 14.9, Hct 44.1, Plt Count 249 02/17/18 15:40: Sodium 141, Potassium 3.8, BUN 16, Creatinine 0.80, Glucose 137 H, Magnesium 2.0, Total Bilirubin 0.4, AST 20, ALT 32, Alkaline Phosphatase 74, Troponin I < 0.02, Lipase 194 02/17/18 15:37: PT Cancelled, INR Cancelled 02/17/18 15:37: WBC Cancelled, Hgb Cancelled, Hct Cancelled, Plt Count Cancelled 02/17/18 15:37: Sodium Cancelled, Potassium Cancelled, BUN Cancelled, Creatinine Cancelled, Glucose Cancelled, Magnesium Cancelled, Total Bilirubin Cancelled, AST Cancelled, ALT Cancelled, Alkaline Phosphatase Cancelled, Lipase Cancelled Assessment and Plan - Problems (Diagnosis) (1) Chest pain Current Visit: Yes Status: Acute Qualifiers: Chest pain type: precordial pain Qualified Code(s): R07.2 - Precordial pain (2) CAD (coronary artery disease) Current Visit: Yes Status: Acute Qualifiers: Coronary Disease-Associated Artery/Lesion type: bypass graft [place] vs. transplanted heart: [place] heart (3) HTN (hypertension) Current Visit: Yes Status: Acute Qualifiers: Hypertension type: essential hypertension Qualified Code(s): I10 - Essential (primary) hypertension - Plan Patient will be admitted to the hospital due to chest pain. So far cardiac enzymes negative, EKG without any ST-T abnormality. Will order serial troponin I is she. Will order echocardiogram, consult Cardiology team. - Advance Directives Does patient have a Living Will: Yes Does patient have a Durable POA for Healthcare: Yes - Code Status/Comfort Care Code Status Assessed: Yes Code Status: Full Code
[2018-02-18] MEDS: ACETAMINOPHEN 500 MG TAB PO PRN (03:54)
[2018-02-18] MEDS ORDERED: TRAMADOL HCL 50 MG TAB PO PRN (04:04)
[2018-02-18 04:12] LABS: Absolute Lymphocytes (CBC) 2.4 K/uL (0.7-4.9); Absolute Monocytes 0.7 K/uL (0.1-1.3); Absolute Neutrophil 3.1 K/uL (1.8-8.0); Basophils % 1.1 % (0-1.3); Eosinophils % 3.4 % (0-4.4); Hematocrit 41.1 % (36.0-45.0); Lymphocytes % 36.9 % (15.3-44.8); MCH 29.2 pg (27.0-35.0); MCV 87.5 fL (80-100); MPV 10.1 fL (7.6-11.3); Monocytes % 11.1 % (3.3-12.3)
[2018-02-18 04:31] LABS: ALT/SGPT 26 U/L (12-78); AST/SGOT 19 U/L (15-37); Albumin 2.9 g/dL (3.4-5.0); Alkaline Phosphatase 55 U/L (45-117); BUN Blood Urea Nitrogen 17 mg/dL (7-18); Bicarbonate 28 mmol/L (21-32); Bilirubin Total 0.4 mg/dL (0.2-1.0); Glucose Level 114 mg/dL (74-106); Potassium 3.8 mmol/L (3.5-5.1); Sodium Level 142 mmol/L (136-145); Troponin I < 0.02 ng/mL (0.0-0.045)
[2018-02-18] MEDS ORDERED: POTASSIUM CL SA 10 MEQ TAB PO ONE (05:18)
[2018-02-18 05:40] LABS: Magnesium 1.9 mg/dL (1.8-2.4); Phosphorus 3.9 mg/dL (2.5-4.9)
--- NOTE | 2018-02-18 06:05 | EKG ---
Test Date: 2018-02-17 Test Time: 15:38:58 Hand Expansion Envelope Maker: MARIA D MEASUREMENT RESULTS: Intervals: Rate: 59 CT: 126 QRSD: 100 QT: 406 QTc: 401 [place]: P: 20 CT: 126 QRS: 91 T: 75 INTERPRETIVE STATEMENTS: Sinus bradycardia Rightward axis Borderline ECG Compared to ECG 02/04/2012 20:23:21 Right-axis deviation now present Sinus rhythm no longer present T-wave abnormality no longer present Prolonged QT interval no longer present Electronically Signed On 02-18-18 06:04:11 PASTE WORKER by Cristobal Taylor
[2018-02-18] MEDS ORDERED: CARVEDILOL 25 MG TAB PO SCH (08:00)
[2018-02-18 08:19] LABS: Urine Appearance CLEAR; Urine Bilirubin NEGATIVE (NEG); Urine Blood NEGATIVE (NEG); Urine Color YELLOW; Urine Glucose NEGATIVE (NEG); Urine Microscopic Reflex NO UMIC; Urine Protein NEGATIVE (NEG); Urine Urobilinogen 0.2 mg/dL (0.2-1.0)
[2018-02-18] MEDS ORDERED: ASPIRIN EC 81 MG TAB PO SCH (09:00)
--- NOTE | 2018-02-18 11:39 | ECHO ---
HEIGHT: 5 ft 2 in WEIGHT: 168 lb 8 oz DATE OF STUDY: 02/18/[address]: Germaine Perkins MD 2-DIMENSIONAL: YES M.MODE: YES DOPPLER: YES COLOR FLOW: YES TDS: NO PORTABLE: NO DEFINITY: NO BUBBLE STUDY: NO DIAGNOSIS: CHEST PAIN CARDIAC HISTORY: CATHERIZATION: YES SURGERY: NO PROSTHETIC VALVE: NO PACEMAKER: NO MEASUREMENTS (cm) DIASTOLIC (NORMALS) SYSTOLIC (NORMALS) IVSd 1.4 (0.6-1.2) LA Diam 4.4 (1.9-4.0) LVEF 60% LVIDd 4.3 (3.5-5.7) LVIDs 2.9 (2.0-3.5) %FS 32% LVPWd 1.4 (0.6-1.2) Ao Diam 2.6 (2.0-3.7) 2 DIMENSIONAL ASSESSMENT: RIGHT ATRIUM: NORMAL LEFT ATRIUM: DILATED RIGHT VENTRICLE: NORMAL LEFT VENTRICLE: LEFT VENTRICULAR HYPERTROPHY TRICUSPID VALVE: NORMAL MITRAL VALVE: NORMAL PULMONIC VALVE: NORMAL AORTIC VALVE: NORMAL PERICARDIAL EFFUSION: NONE AORTIC ROOT: NORMAL LEFT VENTRICULAR WALL MOTION: NORMAL DOPPLER/COLOR FLOW: MILD MITRAL AND TRICUSPID REGURGITATION. MILD PULMONARY HYPERTENSION. ESTIMATED RIGHT VENTRICULAR SYSTOLIC PRESSURE 40 mmHg. COMMENTS: NORMAL LEFT VENTRICULAR EJECTION FRACTION. LEFT VENTRICULAR HYPERTROPHY. DILATED LEFT ATRIUM. MILD MITRAL AND TRICUSPID REGURGITATION. MILD PULMONARY HYPERTENSION. TECHNOLOGIST: Kristina JORGENSEN
[2018-02-18 12:12] VITALS: BP 121/58; TEMP 97.3
[2018-02-18 12:17] VITALS: O2SAT 93
--- NOTE | 2018-02-18 14:09 | CON ---
CARDIOLOGY CONSULT History Of Present Illness: Ms. Hdez is a woman who has rheumatoid arthritis and coronary heart dis ease about 5 years ago. She did a coronary bypass surgery a few years before that she had a stent pu t in her heart. Since then, she has done well. Her last stress test in my office was 2 months ago a nd it was normal. She started having pain that is mostly left arm shoulder blade. It causes headach es. It makes her neck feel stiff and when she gets the headache and in more pain, her blood pressure goes up. Medications: Her outpatient medications have been cyclosporine, nitroglycerin, hydralazine, Orencia, prednisone, Arava, Protonix, aspirin, spironolactone, rosuvastatin, irbesartan, carvedilol, and bima toprost. Physical Examination: Vital Signs: 5 feet 2, 168 pounds. General: Obese, alert, oriented. She seems to be when seen in pain. HEENT: Unremarkable. Extremities: No pericardial friction rub. No edema. Heart: Within normal limits. Lungs: Clear. Diagnostic Data: Her cardiac enzymes are normal. She has been having chest pain for more than 24 ho urs. Her EKG does not show infarction, injury, or ischemia. An echocardiogram is pending. I do not think we had a sed rate, but I suspect her rheumatoid arthritis is the cause of this pain and I woul d recommend a pulsed dose of steroid and see if we can get that settled. We will do an echocardiogra m to make sure there is no pericardial effusion, but I do not think we want to engage in a cardiac ca th or a repeat nuclear stress test. It seems to be clearly not related to an acute coronary syndrome , most likely a bad flare-up of her rheumatoid. Her rheumatoid has been flaring up at the rate of every few months and her paid search analyst has made several changes in her medicines, instruct her to ta ke steroids when she has a flare up. PARKER/REJI Voice ID: [id number] Report ID: [id number]
--- NOTE | 2018-02-18 16:41 | P.SSS ---
Patient History Date of Service: 02/18/18 Reason for admission: Chest pain History of Present Illness: Ms Hdez is a 62-year-old woman with history of coronary artery disease, status post stent placement and CABG, hypertension, who came to the hospital complaining of chest pain, pressure like, radiates to the back and left side of the neck, 7/10 of intensity. The pain lasts for a couple of hr, she denied any nausea or diaphoresis, however, he has had some shortness of breath. Lab work remarkable for normal WBC count, troponin I negative. EKG shows normal sinus rhythm at about [address]-T abnormality. The Allergies clopidogrel bisulfate [From Plavix] Allergy (Intermediate, Verified 02/17/18 21: 51) Itching/Hives/Rash Home Medications: Abatacept [Orencia] 125 mg SQ EVERY 7TH DAY 02/17/18 Aspirin [Aspirin EC 81 MG] 81 mg PO DAILY 02/17/18 Bimatoprost [Lumigan] 1 gtt OP BEDTIME 02/17/18 Carvedilol [Coreg] 25 mg PO BID 02/17/18 Cyclosporine [Restasis] 1 drop EACH EYE BID 02/17/18 Hydralazine [Apresoline] 25 mg PO TID PRN 02/17/18 Irbesartan [Avapro] 300 mg PO BEDTIME 02/17/18 Leflunomide [Arava] 20 mg PO DAILY 02/17/18 Nitroglycerin [Nitrostat] 0.4 mg SL DAILY PRN 02/17/18 Pantoprazole Sodium 40 mg PO DAILY 02/17/18 Rosuvastatin Calcium [Crestor] 40 mg PO BEDTIME 02/17/18 Spironolactone [Aldactone] 25 mg PO DAILY 02/17/18 predniSONE [Deltasone] 2 tab PO DAILY PRN 02/17/18 - Past Medical/Surgical History Has patient received pneumonia vaccine in the past: Yes Diabetic: No -: HTN -: RA -: Bigh Cholesterol -: Sleep Apnea -: Back sx -: Double Bypass -: insertion of stents x3 -: Hysterectomy -: Left big toe sx - Family History Father -: Cancer Notes: colon and pancreatic cancer Mother -: Heart disease Notes: pace maker, rheumatic fever Brother -: Heart disease, Diabetes Sister -: Heart disease, Diabetes - Social History Smoking Status: Former smoker Alcohol use: Yes CD- Drugs: No Caffeine use: Yes Place of Residence: Home Review of Systems 10-point ROS is otherwise unremarkable Physical Examination - Vital Signs Temperature: 97.3 F Blood Pressure: 121/58 Pulse: 54 Respirations: 16 Pulse Ox (%): 93 - Physical Exam General: Alert, In no apparent distress HEENT: Atraumatic, PERRLA, Mucous membr. moist/pink, EOMI, Sclerae nonicteric Neck: Supple, 2+ carotid pulse no bruit, No LAD, Without JVD or thyroid abnormality Respiratory: Clear to auscultation bilaterally, Normal air movement Cardiovascular: Regular rate/rhythm, Normal S1 S2 Gastrointestinal: Normal bowel sounds, No tenderness Musculoskeletal: No tenderness Integumentary: No rashes Neurological: Normal gait, Normal speech, Normal strength at 5/5 x4 extr, Normal tone, Normal affect Lymphatics: No axilla or inguinal lymphadenopathy - Studies Laboratory Data (last 24 hrs) 02/17/18 15:37: PT Cancelled, INR Cancelled 02/17/18 15:37: WBC Cancelled, Hgb Cancelled, Hct Cancelled, Plt Count Cancelled 02/17/18 15:37: Sodium Cancelled, Potassium Cancelled, BUN Cancelled, Creatinine Cancelled, Glucose Cancelled, Magnesium Cancelled, Total Bilirubin Cancelled, AST Cancelled, ALT Cancelled, Alkaline Phosphatase Cancelled, Lipase Cancelled - Diagnosis (Problem(s)) (1) CAD (coronary artery disease) Onset Date: 02/18/18 Status: Acute Qualifiers: Coronary Disease-Associated Artery/Lesion type: bypass graft [place] vs. transplanted heart: [place] heart (2) Chest pain Onset Date: 02/18/18 Status: Acute Qualifiers: Chest pain type: precordial pain Qualified Code(s): R07.2 - Precordial pain (3) HTN (hypertension) Onset Date: 02/18/18 Status: Acute Qualifiers: Hypertension type: essential hypertension Qualified Code(s): I10 - Essential (primary) hypertension Treatment Summary: Overall during the hospital stay patient remained stable The patient was admitted to the hospital for chest pain ACS rule out. Patient' s troponin x2 was negative. EKG had no ST wave changes. Cardiology was consulted. Who recommended the patient be discharged home under stable condition was asked to follow up outpatient. Patient was also offered to be given prednisone however patient declined the prednisone and stated that she would like to go home at this time. Patient thus was discharged home and was asked to follow up with primary care provider in about 1-2 days post discharge. nonspecific ST T wave - Disposition Disposition: ROUTINE DISCHARGE Condition: GOOD Diet: Regular Activity: Ad roas
[2018-02-18] MEDS ORDERED: ROSUVASTATIN 10 MG TAB PO SCH (21:00)
[2018-02-19] MEDS ORDERED: IRBESARTAN 150 MG TAB PO SCH (09:00)
== END 2018-02-18 15:35 | disposition home or self-care (01) ==
LOC: ER 15:23 → ERHOLD 17:13 → 4TH 19:46
PROVIDERS: ADMIT Family Medicine; ATTEND Internal Medicine
DX: R07.2 Precordial pain (principal); I25.10 Atherosclerotic heart disease of native coronary artery without angina pectoris; I10 Essential (primary) hypertension; M06.9 Rheumatoid arthritis, unspecified; Z87.891 Personal history of nicotine dependence; Z79.82 Long term (current) use of aspirin; Z95.1 Presence of aortocoronary bypass graft; Z95.5 Presence of coronary angioplasty implant and graft
CPT/HCPCS: 36415; 71045; 80048; 80053; 80076; 81003; 83690; 83735; 83880; 84100; 84484; 85025; 85610; 93005; 93306; 96372; 96374; 96375; 99285; G0378; J1650; J2405; J7030

== ENCOUNTER 2023-02-08 18:01 | Emergency (ER) | payer BC, OTHER ==
--- OUTSIDE RECORDS SUMMARY | 2023-02-08 18:07 | XMS REPORT | Continuity of Care Document ---
:1955 Author Organization [facility] t Address [address] [place] [address] [address] [place] [address] Care Team Providers Name Role Phone Rah Multani MD Primary Care Physician Jg Bernard Attending Clinician Unavailable Linsey REAL, Benjamin Alamo Attending Clinician ASH_Quintin_David_NP Attending Clinician Unavailable Shannon Gaxiola MA Attending Clinician Unavailable Kay Jonas MD Attending Clinician Provider, Unknown Attending Clinician Unavailable Lily Monahan RN Attending Clinician Unavailable Melchor Holland MD Attending Clinician Doctor Unassigned, [place] Attending Clinician Unavailable Sejal Crawford DO Attending Clinician Matty Guidry MD Attending Clinician Layton Grewal MD Attending Clinician Fernando Attending Clinician Unavailable Dre Pereyra Attending Clinician Unavailable FOG_A_Provider Attending Clinician Unavailable Kayla Dickson MD Attending Clinician KAYLA DICKSON Attending Clinician Unavailable Reed Rivera PA-C Attending Clinician [phone] Medhat Aguilar MD Attending Clinician Janet Null MA Attending Clinician Unavailable FABIENNE_Maegan Attending Clinician Unavailable Tawana Luna MA Attending Clinician Unavailable Ashley Shen MA Attending Clinician Unavailable Connie Farfan MD Attending Clinician [phone] Malou [place] APRN Attending Clinician Margo Coles MA Attending Clinician Unavailable ELENITA DOWLING Attending Clinician Unavailable Anali Roldan Attending Clinician [phone] EKTA MARTINI Attending Clinician Unavailable Jg Bernard Admitting Clinician Unavailable ASH_Quintin_David_SEGUNDO Admitting Clinician Unavailable KAY JONAS Admitting Clinician Unavailable Dre Pereyra Admitting Clinician Unavailable ESTER BERNARDO Admitting Clinician Unavailable MATTY GUIDRY Admitting Clinician Unavailable ASH_Aram Admitting Clinician Unavailable RAH LESLIE Admitting Clinician Unavailable FOG_A_Provider Admitting Clinician Unavailable FABIENNE_EVELYNE_Gia Admitting Clinician Unavailable MEDHAT AGUILAR Admitting Clinician Unavailable Payers Payer Name Policy Type Policy Number Effective Date Expiration Date [place] [id number] 2020 [place] [facility] [id number] 2020 00:00:00 [place] [id number] 2016 00:00:00 Problems Condition Condition Condition Status Onset Resolution Last Treating Co mments Source Name Details Category Date Date Treatment Clinician Date Heart Heart Disease Active [facility] failure failure 09-30 00:00: Hospita 00 l DVT of DVT of Disease Active [facility] deep deep 09-13 femoral femoral 00:00: Hospita vein, vein, 00 l right right Shortness Shortness Disease Active [facility] of breath of breath 09-12 00:00: Hospita 00 l Primary Primary Disease Active 2021-04 [facility] osteoarthr osteoarthr 0-12 st itis of itis of 00:00: Hospita left knee left knee 00 l Arthritis Arthritis Disease Active 2021-04 [facility] of knee, of knee, 0-11 st right right 00:00: Hospita 00 l Primary Primary Disease Active Overview: [facility] osteoarthr osteoarthr 5-[address] itis of itis of 00:00: g of this Hospi ta right knee right knee 00 note l might be different from the original. Added automatic ally from request for surgery [id number] Obesity Obesity Problem Active 2017-04 [facility] 04-14 Medical 00:00: 00 Hypertensi Hypertensi Problem Active 2017-04 [facility] ve ve 04-14 Medical disorder Disorder 00:00: 00 Myocardial Myocardial Problem Active 2017-04 [facility] infarction Infarction 04-14 Me dical 00:00: 00 Arthritis Arthritis Problem Active 2017-04 [facility] via 04-14 Medical 00:00: 00 Venous Venous Disease Active 2017-04 Last [facility] insufficie insufficie 04-[address] ncy ncy 00:00: t & Plan: Hospita 00 Formattin l g of this note might be different from the original. I have discussed the procedure with patient along with its risks and benefits. Plan: She will call us. Most likely, bilateral GSV ablation. 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 0-11 st failure failure 00:00: Hospita 00 l Dyspnea on Dyspnea on Disease Active 2015-04 M ethodi exertion exertion 0-11 st 00:00: Hospita 00 l Edema of Edema of Disease Active 2015-04 [facility] di lower lower 0-11 st extremity extremity 00:00: Hosp marcial 00 l Essential Essential Disease Active 2015-04 [facility] hypertensi hypertensi 0-11 st on on 00:00: Hospita 00 l Hyperlipid Hyperlipid Disease Active 2015-04 M ethodi emia emia 0-11 st 00:00: Hospita 00 l Obstructiv Obstructiv Disease Active 2015-04 M ethodi e sleep e sleep 0-11 st apnea 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 00 l Allergies, Adverse Reactions, Alerts Allergy Allergy Status Severity Reaction(s) Onset Inactive Treating Comm ents Source Name Type Date Date Clinician clopidog DA Active MA [facility] [place] 00:00: [facility] 00 dic Hospita l clopidog DA Active [facility] 7-07 [place] 00:00: Orthope 00 dic Hospita l Clopidog Propensi Active Rash 2015-04 Method i rel ty to 0-11 st adverse 00:00: Hospita reaction 00 l s to drug CLOPIDOG DRUG Active Low Rash 2015-04 [facility] REL INGREDI 0-11 ity of 00:00: [place] 00 [facility] Clopidog Drug Active Unknown - 2015-04 Unive rs rel Allergy See comments 0-11 ity of 00:00: [address] NO KNOWN Drug Active Univers ALLERGIE Class ity of S [facility] Plavix Allergy Active [facility] to Medical substanc e Family History Family Member Diagnosis Comments Start Date Stop Date Source Natural brother Diabetes [facility] Natural brother Heart disease Method [facility] father Cancer [facility] Maternal uncle [facility] mother Heart disease [facility] Natural sister Heart disease [facility] Natural sister Cancer [facility] Natural sister Diabetes [facility] Social History Social Habit Start Date Stop Date Quantity Comments Source Gender identity [facility] Sexual orientation Method [facility] Alcohol intake 2022-11-05 2022-11-05 Current drinker [facility] dist 00:00:00 00:00:00 of [facility] (finding) History of Social 2022-11-05 2022-11-[address] function 00:00:00 00:00:00 Hospital Exposure to 2022-07-23 2022-08-02 Not sure University of SARS-CoV-2 (event) 00:00:00 10:54:00 [facility] Tobacco use and 2022-01-02 2022-01-02 Smokeless tobacco [facility] exposure 00:00:00 00:00:00 non-user Hospital Cigarettes smoked 2022-01-02 2022-01-[address] current (pack per 00:00:00 00:00:00 Hospita l day) - Reported Cigarette 2022-01-02 2022-01-02 [facility] pack-years 00:00:00 00:00:00 Hospital Tobacco Comment 2022-01-02 2022-01-02 quit 37 yeras ago [facility] 00:00:00 00:00:00 Hospital Alcohol Comment 2016-01-16 2016-01-16 occasional [facility] 00:00:00 00:00:00 Hospital History of tobacco 1981-02-26 Cigarette Smoker [facility] use 00:00:00 Hospital Sex Ass[birth year] At [birth year] [facility] 00:00:00 00:00:00 Hospital Smoking Status Start Date Stop Date Source Never Smoker [facility] Tobacco smoking [facility] consumption unknown Medical Bran ch Ex-smoker 2022-01-02 00:00:00 2022-01-02 [facility] Ho spital 00:00:00 Medications Ordered Filled Start Stop Current Ordering Indication Dosage Frequency Signature Comments Components Source Medication Medication Date Date Medication? Clinician (SIG) Name Name rosuvastati 2022-04 Yes TAKE 1 [facility] n (CRESTOR) 0-[address] 40 MG 00:00: MOUTH Hospita tablet 00 EVERY DAY l AT NIGHT carvediloL 2022- No 6.25mg Q.5D Take 1 Me [facility] (COREG) 12-[address] 6.25 MG 12:23: 00:00 (6.25 mg Hospi ta tablet 40 :00 total) by l mouth 2 (two) times a day with meals. carvediloL Yes 6.25mg Q.5D Take 1 Met [facility] (COREG) 12-[address] 6.25 MG 00:00: (6.25 mg Hospit a tablet 00 total) by l mouth 2 (two) times a day with meals. apixaban Yes 5mg Q.5D Take 1 [facility] (ELIQUIS) 5 12-06 tablet (5 st mg tablet 00:00: mg total) Hos shellie 00 by mouth 2 l (two) times a day. spironolact 2022- No 25mg QD Take 1 [facility] one 12-06 10-16 tablet (25 st (ALDACTONE) 00:00: 00:00 mg total) Hospita 25 MG 00 :00 by mouth l tablet daily. irbesartan 2023-0 Yes 300mg QD Take 1 [facility] (AVAPRO) 11-[address] 300 MG 10:36: (300 mg Hospita tablet 22 total) by l mouth nightly. irbesartan 2023-0 Yes 300mg QD Take 1 [facility] (AVAPRO) - tablet st 300 MG 10:36: (300 mg Hospita tablet 22 total) by l mouth nightly. dapaglifloz 2023-0 Yes QD Take by Met hodi in 11-[address] propanediol 10:30: daily. Hosp marcial (FARXIGA) 5 13 l mg tablet dapaglifloz 3-0 Yes QD Take by Met [facility] in 11-[address] propanediol 10:30: daily. Hosp marcial (FARXIGA) 5 13 l mg tablet carvediloL 3-0 Yes 6.25mg Q.5D Take 1 [facility] (COREG) 11-[address] 6.25 MG 17:37: (6.25 mg Hospit a tablet 01 total) by l mouth 2 (two) times a day with meals. bimatoprost 3-0 Yes 1[drp] QD Administer [facility] (LUMIGAN) 10-[address] 0.01 % 17:37: both eyes Hospit a ophthalmic 18 nightly. l drops leflunomide 3-0 Yes 20mg QD Take 1 [facility] (ARAVA) 20 - tablet (20 st MG tablet 17:37: mg total) Hos shellie 18 by mouth l daily. predniSONE 2023-0 Yes 5mg QD Take 1 [facility] di (DELTASONE) - tablet (5 st 5 mg tablet 17:37: mg total) H ospita 18 by mouth l daily. TURMERIC 2023-0 Yes 1{tbl} QD Take 1 [facility] ORAL - tablet by st 17:37: mouth Hospita 18 daily. l 20,000 mg pregabalin 2023-0 Yes 75mg Q.5D Take 1 [facility] di (LYRICA) 75 - capsule st MG capsule 17:37: (75 mg Hospi ta 18 total) by l mouth 2 (two) times a day. acetaminoph 2023-0 Yes 650mg Q8H Take 1 Met [facility] en ER 7-[address] (TYLENOL) 17:37: (650 mg Hospi ta 650 MG 8 hr 18 total) by l tablet mouth every 8 (eight) hours as needed for mild pain. tiZANidine 3-0 Yes 4mg QD Take 1 [facility] di (ZANAFLEX) - tablet (4 st 4 MG tablet 17:37: mg total) H ospita 18 by mouth l nightly. cyanocobala 3-0 Yes 1{tbl} QD Take 1 Me [facility] min, 10-[address] vitamin 17:37: mouth Hospita B-12, 18 daily. l (VITAMIN B-12 ORAL) tocilizumab 2022-0 Yes Q30D Infuse [facility] (ACTEMRA 10-[address] IV) 17:37: venous Hospita 18 catheter l every 30 (thirty) days. bimatoprost 2022-0 Yes 1[drp] QD Administer [facility] (LUMIGAN) 10-[address] 0.01 % 17:37: both eyes Hospit a ophthalmic 18 nightly. l drops leflunomide 2022-0 Yes 20mg QD Take 1 [facility] (ARAVA) 20 - tablet (20 st MG tablet 17:37: mg total) Hos shellie 18 by mouth l daily. predniSONE 3-0 Yes 5mg QD Take 1 [facility] di (DELTASONE) - tablet (5 st 5 mg tablet 17:37: mg total) H ospita 18 by mouth l daily. TURMERIC 3-0 Yes 1{tbl} QD Take 1 [facility] di ORAL - tablet by st 17:37: mouth Hospita 18 daily. l 20,000 mg pregabalin 2023-0 Yes 75mg Q.5D Take 1 [facility] di (LYRICA) 75 - capsule st MG capsule 17:37: (75 mg Hospi ta 18 total) by l mouth 2 (two) times a day. acetaminoph 2023-0 Yes 650mg Q8H Take 1 [facility] en ER 7-[address] (TYLENOL) 17:37: (650 mg Hospi ta 650 MG 8 hr 18 total) by l tablet mouth every 8 (eight) hours as needed for mild pain. tiZANidine 0 Yes 4mg QD Take 1 [facility] di (ZANAFLEX) 10-31 tablet (4 st 4 MG tablet 17:37: mg total) H ospita 18 by mouth l nightly. cyanocobala 0 Yes 1{tbl} QD Take 1 [facility] min, 10-[address] vitamin 17:37: mouth Hospita B-12, 18 daily. l (VITAMIN B-12 ORAL) tocilizumab 2022-0 Yes Q30D Infuse [facility] (ACTEMRA 10-[address] IV) 17:37: venous Hospita 18 catheter l every 30 (thirty) days. aspirin 2022-0 2022- No 81mg QD Take 1 [facility] (ECOTRIN) 10-30- tablet (81 st 81 MG 15:50: 00:00 mg total) Hospit a enteric 51 :00 by mouth l coated daily. tablet aspirin 2022-0 2022- No 81mg QD Take 1 [facility] (ECOTRIN) 10-30 tablet (81 st 81 MG 15:50: 00:00 mg total) Hospit a enteric 51 :00 by mouth l coated daily. tablet metFORMIN 2022-2022- No 500mg QD Take 1 [facility] XR 10-[address] (GLUCOPHAGE 13:22: 00:00 (500 mg Ho spita -XR) 500 mg 04 :00 total) by l 24 hr mouth tablet nightly. metFORMIN 2022-0 2022- No 500mg QD Take 1 [facility] XR 10-[address] (GLUCOPHAGE 13:22: 00:00 (500 mg Ho spita -XR) 500 mg 04 :00 total) by l 24 hr mouth tablet nightly. metFORMIN 2022-0 2022- No 500mg QD Take 1 [facility] XR 10-03- tablet st (GLUCOPHAGE 13:22: 00:00 (500 mg Ho spita -XR) 500 mg 04 :00 total) by l 24 hr mouth tablet nightly. nitrofurant 2022-0 2022- No 100mg Q.5D Take 1 [facility] oin 10-[address] (MACRODANTI 13:20: 00:00 (100 mg Ho spita N) 100 MG 07 :00 total) by l capsule mouth 2 (two) times a day. X 14 days. Started last week (Cannot confirm exact day). Last dose 09/12/2022 AM nitrofurant 2022-0 2022- No 100mg Q.5D Take 1 [facility] oin 10-[address] (MACRODANTI 13:20: 00:00 (100 mg Ho spita N) 100 MG 07 :00 total) by l capsule mouth 2 (two) times a day. X 14 days. Started last week (Cannot confirm exact day). Last dose 09/12/2022 AM nitrofurant 2022-0 2022- No 100mg Q.5D Take 1 [facility] oin 10-[address] (MACRODANTI 13:20: 00:00 (100 mg Ho spita N) 100 MG 07 :00 total) by l capsule mouth 2 (two) times a day. X 14 days. Started last week (Cannot confirm exact day). Last dose 09/12/2022 AM bimatoprost 2022-0 Yes 1[drp] QD Administer [facility] (LUMIGAN) 10-[address] 0.01 % 12:59: both eyes Hospit a ophthalmic 06 nightly. l drops leflunomide 2022-0 Yes 20mg QD Take 1 [facility] (ARAVA) 20 10-03 tablet (20 st MG tablet 12:59: mg total) Hos shellie 06 by mouth l daily. predniSONE 2022-0 Yes 5mg QD Take 1 [facility] di (DELTASONE) 10-03 tablet (5 st 5 mg tablet 12:59: mg total) H ospita 06 by mouth l daily. TURMERIC 2022-0 Yes 1{tbl} QD Take 1 [facility] ORAL -[address] 12:59: mouth Hospita 06 daily. l 20,000 mg pregabalin 2022-0 Yes 75mg Q.5D Take 1 [facility] di (LYRICA) 75 - capsule st MG capsule 12:59: (75 mg Hospi ta 06 total) by l mouth 2 (two) times a day. acetaminoph 2022-0 Yes 650mg Q8H Take 1 [facility] en ER - tablet st (TYLENOL) 12:59: (650 mg Hospi ta 650 MG 8 hr 06 total) by l tablet mouth every 8 (eight) hours as needed for mild pain. aspirin 0 Yes 81mg QD Take 1 [facility] (ECOTRIN) 10-03 tablet (81 st 81 MG 12:59: mg total) Hospita enteric 06 by mouth l coated daily. tablet tiZANidine 0 Yes 2mg Q.5D Take 0.5 Met [facility] (ZANAFLEX) 10-03 tablets (2 st 4 MG tablet 12:59: mg total) H ospita 06 by mouth 2 l (two) times a day. cyanocobala Yes 1{tbl} QD Take 1 [facility] min, 10-[address] vitamin 12:59: mouth Hospita B-12, 06 daily. l (VITAMIN B-12 ORAL) tocilizumab 0 Yes Q30D Infuse [facility] (ACTEMRA 10-[address] IV) 12:59: venous Hospita 06 catheter l every 30 (thirty) days. semaglutide 2022- No [id number] .5mg Q7D Inject [facility] (Ozempic) 10-[address] 0.25 mg or 00:00: 05:59 (0.5 mg Hos shellie 0.5 mg(2 00 :00 total) l mg/1.5 mL) under the subcutaneou skin once s pen a week for 180 days. Inject 0.25mg weekly for 1 month then increase to 0.5 mg weekly metFORMIN 2022- No [id number] 1000mg Q.5D Take 2 [facility] XR 10-[address] (GLUCOPHAGE 00:00: 05:59 (1,000 mg Hospita -XR) 500 mg 00 :00 total) by l 24 hr mouth 2 tablet (two) times a day with meals for 180 days. semaglutide 2022- No [id number] .5mg Q7D Inject [facility] (Ozempic) 10-[address] 0.25 mg or 00:00: 05:59 (0.5 mg Hos shellie 0.5 mg(2 00 :00 total) l mg/1.5 mL) under the subcutaneou skin once s pen a week for 180 days. Inject 0.25mg weekly for 1 month then increase to 0.5 mg weekly metFORMIN 2022-0 3- No [id number] 1000mg Q.5D Take 2 [facility] XR 10-[address] (GLUCOPHAGE 00:00: 05:59 (1,000 mg Hospita -XR) 500 mg 00 :00 total) by l 24 hr mouth 2 tablet (two) times a day with meals for 180 days. dapaglifloz 2022-0 2022- No [id number] 10mg QD Take 1 [facility] in 10-03 tablet (10 st propanediol 00:00: 05:59 mg total) Hospita (Farxiga) 00 :00 by mouth l 10 mg daily for tablet 180 days. semaglutide 2022-0 3- No [id number] .5mg Q7D Inject [facility] (Ozempic) 10-[address] 0.25 mg or 00:00: 05:59 (0.5 mg Hos shellie 0.5 mg(2 00 :00 total) l mg/1.5 mL) under the subcutaneou skin once s pen a week for 180 days. Inject 0.25mg weekly for 1 month then increase to 0.5 mg weekly metFORMIN 2022-0 2022- No [id number] 1000mg Q.5D Take 2 [facility] XR 10-[address] (GLUCOPHAGE 00:00: 05:59 (1,000 mg Hospita -XR) 500 mg 00 :00 total) by l 24 hr mouth 2 tablet (two) times a day with meals for 180 days. dapaglifloz 2022-0 2022- No [id number] 10mg QD Take 1 [facility] in 10-03 tablet (10 st propanediol 00:00: 00:00 mg total) Hospita (Farxiga) 00 :00 by mouth l 10 mg daily for tablet 180 days. dapaglifloz 2022-0 3- No [id number] 10mg QD Take 1 [facility] in 10-03 tablet (10 st propanediol 00:00: 00:00 mg total) Hospita (Farxiga) 00 :00 by mouth l 10 mg daily for tablet 180 days. furosemide 2023-0 2024- No 40mg Q.5D Take 1 [facility] (LASIX) 40 6-21 -21 tablet (40 st mg tablet 00:00: 04:59 mg total) Ho spita 00 :00 by mouth 2 l (two) times a day. furosemide 2022-0 2023- No 40mg Q.5D Take 1 [facility] (LASIX) 40 6-21 -21 tablet (40 st mg tablet 00:00: 04:59 mg total) Ho spita 00 :00 by mouth 2 l (two) times a day. furosemide 2022-0 2023- No 40mg Q.5D Take 1 [facility] (LASIX) 40 6-25 09-21 tablet (40 st mg tablet 00:00: 04:59 mg total) Ho spita 00 :00 by mouth 2 l (two) times a day. hydrALAZINE 2022-0 2023- No 25mg Q.5D Take 1 [facility] (APRESOLINE 6-16 06-15 tablet (25 s t ) 25 MG 13:48: 00:00 mg total) Hosp marcial tablet 03 :00 by mouth 2 l (two) times a day. hydrALAZINE 2022-0 2023- No 25mg Q.5D Take 1 [facility] (APRESOLINE 6-16 06-15 tablet (25 s t ) 25 MG 13:48: 00:00 mg total) Hosp marcial tablet 03 :00 by mouth 2 l (two) times a day. hydrALAZINE 2022-0 2023- No 25mg Q.5D Take 1 [facility] (APRESOLINE 6-16 06-15 tablet (25 s t ) 25 MG 13:48: 00:00 mg total) Hosp marcial tablet 03 :00 by mouth 2 l (two) times a day. spironolact 2023-0 2023- No 25mg QD Take 1 [facility] one 6-16 06-16 tablet (25 st (ALDACTONE) 11:21: 00:00 mg total) Hospita 25 MG 37 :00 by mouth l tablet daily. spironolact 2023-0 2023- No 25mg QD Take 1 [facility] one 6-16 06-16 tablet (25 st (ALDACTONE) 11:21: 00:00 mg total) Hospita 25 MG 37 :00 by mouth l tablet daily. spironolact 2023-0 2023- No 25mg QD Take 1 Met [facility] one -16 06-16 tablet (25 st (ALDACTONE) 11:21: 00:00 mg total) Hospita 25 MG 37 :00 by mouth l tablet daily. nitroglycer 2023-0 Yes DISSOLVE 1 [facility] in 6-[address] (NITROSTAT) 00:00: UNDER THE H ospita 0.4 MG SL 00 TONGUE l tablet EVERY 5 MINS NEEDED FOR CHEST PAIN. MAX OF 3 TABS IN 15 MINS apixaban 2023-0 Yes 5mg Q.5D Take 1 [facility] (ELIQUIS) 5 -16 tablet (5 st mg tablet 00:00: mg total) Hos shellie 00 by mouth 2 l (two) times a day. nitroglycer 2023-0 Yes DISSOLVE 1 [facility] in 6-[address] (NITROSTAT) 00:00: UNDER THE H ospita 0.4 MG SL 00 TONGUE l tablet EVERY 5 MINS NEEDED FOR CHEST PAIN. MAX OF 3 TABS IN 15 MINS spironolact 2023-0 Yes 25mg QD Take 1 [facility] one -16 tablet (25 st (ALDACTONE) 00:00: mg total) H ospita 25 MG 00 by mouth l tablet daily. apixaban 2023-0 Yes 5mg Q.5D Take 1 [facility] (ELIQUIS) 5 -16 tablet (5 st mg tablet 00:00: mg total) Hos shellie 00 by mouth 2 l (two) times a day. nitroglycer 2023-0 Yes DISSOLVE 1 [facility] in 6-[address] (NITROSTAT) 00:00: UNDER THE H ospita 0.4 MG SL 00 TONGUE l tablet EVERY 5 MINS NEEDED FOR CHEST PAIN. MAX OF 3 TABS IN 15 MINS spironolact 2023-0 Yes 25mg QD Take 1 [facility] one 6-16 tablet (25 st (ALDACTONE) 00:00: mg total) H ospita 25 MG 00 by mouth l tablet daily. apixaban 2023-0 2023- No 5mg Q.5D Take 1 Method i (ELIQUIS) 5 6-16 09-01 tablet (5 st mg tablet 00:00: 00:00 mg total) Ho spita 00 :00 by mouth 2 l (two) times a day. spironolact 2022-0 3- No 25mg QD Take 1 [facility]odi one 09-20- tablet (25 st (ALDACTONE) 00:00: 00:00 mg total) Hospita 25 MG 00 :00 by mouth l tablet daily. carvediloL 2022-0 3- No 6.25mg Q.5D Take 1 [facility] (COREG) 09-19-[address] 6.25 MG 00:00: 04:59 (6.25 mg Hospi ta tablet 00 :00 total) by l mouth 2 (two) times a day for 30 days. irbesartan 2022-0 3- No 150mg QD Take 1 Met [facility] (AVAPRO) 09-19- tablet st 150 MG 00:00: 04:59 (150 mg Hospita tablet 00 :00 total) by l mouth nightly for 30 days. carvediloL 2022-0 2023- No 6.25mg Q.5D Take 1 [facility] (COREG) 09-19- tablet st 6.25 MG 00:00: 04:59 (6.25 mg Hospi ta tablet 00 :00 total) by l mouth 2 (two) times a day for 30 days. irbesartan 2022-0 2022- No 150mg QD Take 1 Met [facility]odi (AVAPRO) 09-19-[address] 150 MG 00:00: 04:59 (150 mg Hospita tablet 00 :00 total) by l mouth nightly for 30 days. carvediloL 2022-0 3- No 6.25mg Q.5D Take 1 Me [facility] (COREG) 09-19-[address] 6.25 MG 00:00: 04:59 (6.25 mg Hospi ta tablet 00 :00 total) by l mouth 2 (two) times a day for 30 days. irbesartan 2022-0 3- No 150mg QD Take 1 Met [facility]odi (AVAPRO) 09-19-[address] 150 MG 00:00: 04:59 (150 mg Hospita tablet 00 :00 total) by l mouth nightly for 30 days. apixaban 2022-0 3- No 10mg Q.5D Take 2 Method i (ELIQUIS) 5 6-15 06-[address] mg tablet 00:00: 00:00 (10 mg Hospi ta 00 :00 total) by l mouth 2 (two) times a day. apixaban 2022-2022- No 10mg Q.5D Take 2 Method i (ELIQUIS) 5 6-15 06-[address] mg tablet 00:00: 00:00 (10 mg Hospi ta 00 :00 total) by l mouth 2 (two) times a day. apixaban 2022-2022- No 10mg Q.5D Take 2 Method i (ELIQUIS) 5 6-15 06-[address] mg tablet 00:00: 00:00 (10 mg Hospi ta 00 :00 total) by l mouth 2 (two) times a day. apixaban 2022-2022- [place] [id number] Take 2 [facility] di (ELIQUIS) 5 6-12 06-[address] mg tablet 00:00: 00:00 (10 mg Hospi ta 00 :00 total) by l mouth 2 (two) times a day for 4 days, THEN 1 tablet (5 mg total) 2 (two) times a day for 26 days.blood clot in a deep vein of the [facility] s. [place]ix[place] 2022[place] [id number] Take 2 [facility] di (ELIQUIS) 5 6-12 06-[address] mg tablet 00:00: 00:00 (10 mg Hospi ta 00 :00 total) by l mouth 2 (two) times a day for 4 days, THEN 1 tablet (5 mg total) 2 (two) times a day for 26 days.blood clot in a deep vein of the [facility]. apixaban 2022-0 2022- [place] [id number] Take 2 [facility] di (ELIQUIS) 5 6-12 06-[address] mg tablet 00:00: 00:00 (10 mg Hospi ta 00 :00 total) by l mouth 2 (two) times a day for 4 days, THEN 1 tablet (5 mg total) 2 (two) times a day for 26 days.blood clot in a deep vein of the [facility] s. zinc 2022-2022- No 50mg Q24H Take 50 mg Method i sulfate 09-12-[address] (ZINC-15 17:25: 00:00 daily as Hosp marcial ORAL) 24 :00 needed. l zinc 2023-0 2023- No 50mg Q24H Take 50 mg Method i sulfate 6- 06-[address] (ZINC-15 17:25: 00:00 daily as Hosp marcial ORAL) 24 :00 needed. l zinc 2023-0 2023- No 50mg Q24H Take 50 mg Method i sulfate 6- 06-[address] (ZINC-15 17:25: 00:00 daily as Hosp marcial ORAL) 24 :00 needed. l UNABLE TO 2023-0 2023- No 1{capsu Q.[id number] Take 1 [facility] FIND 6-08 06-08 le} [id number] capsule by st 17:25: 00:00 3D mouth 3 Hospita 17 :00 (three) l times a day with meals. [place] capsules UNABLE TO 2023-0 2023- No 1{capsu Q.[id number] Take 1 [facility] FIND 6- 06-08 le} [id number] capsule by st 17:25: 00:00 3D mouth 3 Hospita 17 :00 (three) l times a day with meals. [place] capsules UNABLE TO 2023-0 2023- No 1{capsu Q.[id number] Take 1 [facility] FIND 6- 06-08 le} [id number] capsule by st 17:25: 00:00 3D mouth 3 Hospita 17 :00 (three) l times a day with meals. [place] capsules naproxen 2023-0 2023- No 220mg Q12H Take 220 Met hodi sodium 220 6-08 06-[address] mg capsule 17:22: 00:00 mouth Hospi ta 30 :00 every 12 l (twelve) hours as needed. naproxen 2023-0 2023- No 220mg Q12H Take 220 Met [facility] sodium 220 6-08 06-[address] mg capsule 17:22: 00:00 mouth Hospi ta 30 :00 every 12 l (twelve) hours as needed. naproxen 2023-0 2023- No 220mg Q12H Take 220 [facility] sodium 220 6-08 06-[address] mg capsule 17:22: 00:00 mouth Hospi ta 30 :00 every 12 l (twelve) hours as needed. SANDIE 2023-0 2023- No 81mg Q2D Take 81 mg Metho di ASPIRIN 09-[address] ORAL 17:20: 00:00 every Hospita 00 :00 other day. l SANDIE 2022-0 2023- No 81mg Q2D Take 81 mg Metho di ASPIRIN 09-[address] ORAL 17:20: 00:00 every Hospita 00 :00 other day. l SANDIE 2022-0 2023- No 81mg Q2D Take 81 mg Metho di ASPIRIN 09-[address] ORAL 17:20: 00:00 every Hospita 00 :00 other day. l abatacept/m 2022-0 2023- No Q30D Infuse [facility] altose 09-[address] ([facility], 17:19: 00:00 venous Hospi ta WITH 50 :00 catheter l MALTOSE, every 30 IV) (thirty) days. abatacept/m 2022-0 3- No Q30D Infuse Met [facility] altose 09-[address] ([facility], 17:19: 00:00 venous Hospi ta WITH 50 :00 catheter l MALTOSE, every 30 IV) (thirty) days. abatacept/m 2022-0 3- No Q30D Infuse Met [facility] altose 09-[address] ([facility], 17:19: 00:00 venous Hospi ta WITH 50 :00 catheter l MALTOSE, every 30 IV) (thirty) days. irbesartan 2022-0 2022- No TAKE 1 [facility] (AVAPRO) -04 10-[address] 300 MG 00:00: 00:00 MOUTH Hospita tablet 00 :00 EVERY DAY l AT NIGHT irbesartan 3-0 3- No TAKE 1 [facility] (AVAPRO) 5-30 06-[address] 300 MG 00:00: 00:00 MOUTH Hospita tablet 00 :00 EVERY DAY l AT NIGHT irbesartan 3-0 2022- No TAKE 1 [facility] (AVAPRO) 5-30 06-[address] 300 MG 00:00: 00:00 MOUTH Hospita tablet 00 :00 EVERY DAY l AT NIGHT nitroglycer 2022-0 2022- No DISSOLVE 1 [facility] in 5-16 06-[address] (NITROSTAT) 00:00: 00:00 UNDER THE Hospita 0.4 MG SL 00 :00 TONGUE l tablet EVERY 5 MINUTES NEEDED FOR CHEST PAIN. MAX OF 3 TABLETS IN 15 MINUTES. CALL 911 IF PAIN PERSISTS nitroglycer 2023-0 2023- No DISSOLVE 1 [facility] in 08-20-[address] (NITROSTAT) 00:00: 00:00 UNDER THE Hospita 0.4 MG SL 00 :00 TONGUE l tablet EVERY 5 MINUTES NEEDED FOR CHEST PAIN. MAX OF 3 TABLETS IN 15 MINUTES. CALL 911 IF PAIN PERSISTS nitroglycer 3-0 2023- No DISSOLVE 1 [facility] in 08-[address] (NITROSTAT) 00:00: 00:00 UNDER THE Hospita 0.4 MG SL 00 :00 TONGUE l tablet EVERY 5 MINUTES NEEDED FOR CHEST PAIN. MAX OF 3 TABLETS IN 15 MINUTES. CALL 911 IF PAIN PERSISTS levothyroxi 2023-0 Yes [id number] TAKE 1 [facility] ne 4-[address] (SYNTHROID) 00:00: MOUTH Hospi ta 88 mcg 00 EVERY DAY l tablet levothyroxi 2023-0 Yes [id number] TAKE 1 [facility] ne 4-[address] (SYNTHROID) 00:00: MOUTH Hospi ta 88 mcg 00 EVERY DAY l tablet levothyroxi 2023-0 Yes [id number] TAKE 1 [facility] ne 4-[address] (SYNTHROID) 00:00: MOUTH Hospi ta 88 mcg 00 EVERY DAY l tablet isosorbide 2023-0 2023- No TAKE 1 Meth [facility] mononitrate 07-16-[address] (IMDUR) 30 00:00: 00:00 MOUTH Hospi ta MG 24 hr 00 :00 TWICE A l tablet DAY isosorbide 2023-0 2023- No TAKE 1 [facility] mononitrate 4-02 10-[address] (IMDUR) 30 00:00: 00:00 MOUTH Hospi ta MG 24 hr 00 :00 TWICE A l tablet DAY isosorbide 2023-0 2023- No TAKE 1 [facility] mononitrate -02 10-[address] (IMDUR) 30 00:00: 00:00 MOUTH Hospi ta MG 24 hr 00 :00 TWICE A l tablet DAY semaglutide 2022- No [id number] .5mg Q7D Inject [facility] (Ozempic) 06-[address] 0.25 mg or 00:00: 00:00 (0.5 mg Hos shellie 0.5 mg(2 00 :00 total) l mg/1.5 mL) under the subcutaneou skin once s pen a week. Inject 0.25mg weekly for 1 month then increase to 0.5 mg weekly semaglutide 2022- No [id number] .5mg Q7D Inject [facility] (Ozempic) 06-[address] 0.25 mg or 00:00: 00:00 (0.5 mg Hos shellie 0.5 mg(2 00 :00 total) l mg/1.5 mL) under the subcutaneou skin once s pen a week. Inject 0.25mg weekly for 1 month then increase to 0.5 mg weekly semaglutide 2022- No [id number] .5mg Q7D Inject [facility] (Ozempic) 06-[address] 0.25 mg or 00:00: 00:00 (0.5 mg Hos shellie 0.5 mg(2 00 :00 total) l mg/1.5 mL) under the subcutaneou skin once s pen a week. Inject 0.25mg weekly for 1 month then increase to 0.5 mg weekly carvediloL 2022- No [id number] 25mg Q.5D Take 1 [facility] (COREG) 25 04-2315 tablet (25 st MG tablet 00:00: 00:00 mg total) Ho spita 00 :00 by mouth 2 l (two) times a day. carvediloL 2022- No [id number] 25mg Q.5D Take 1 [facility] (COREG) 25 04-2315 tablet (25 st MG tablet 00:00: 00:00 mg total) Ho spita 00 :00 by mouth 2 l (two) times a day. carvediloL 2022- No [id number] 25mg Q.5D Take 1 [facility] (COREG) 25 04-2315 tablet (25 st MG tablet 00:00: 00:00 mg total) Ho spita 00 :00 by mouth 2 l (two) times a day. RamonTouch 2022- Yes [id number] USE 1 Meth kalani Delica Plus 1-[address] Lancet 33 00:00: THREE Hospita gauge misc 00 TIMES A l DAY Strength: 33 gauge OneTouch 2022-0 Yes [id number] USE 1 Meth kal[facility] Delica Plus 1-[address] Lancet 33 00:00: THREE Hospita gauge misc 00 TIMES A l DAY Strength: 33 gauge OneTouch 2022-0 Yes [id number] USE 1 [facility] Delica Plus 1-[address] Lancet 33 00:00: THREE Hospita gauge misc 00 TIMES A l DAY Strength: 33 gauge OneTouch 2023- No [id number] 100{str Q.25D Inject 100 [facility] Verio test 04-17 ip} strips st strips 00:00: 05:59 under the Hospi ta strip test 00 :00 skin 4 l strips (four) times a day. OneTouch 2023- No [id number] 100{str Q.25D Inject 100 [facility] Verio test 04-17 ip} strips st strips 00:00: 05:59 under the Hospi ta strip test 00 :00 skin 4 l strips (four) times a day. OneTouch 2023- No [id number] 100{str Q.25D Inject 100 [facility] Verio test 04-17 ip} strips st strips 00:00: 05:59 under the Hospi ta strip test 00 :00 skin 4 l strips (four) times a day. metFORMIN 2022- No [id number] 1000mg Q.5D Take 2 [facility] XR 04-[address] (GLUCOPHAGE 00:00: 00:00 (1,000 mg Hospita -XR) 500 mg 00 :00 total) by l 24 hr mouth 2 tablet (two) times a day. metFORMIN 2022- No [id number] 1000mg Q.5D Take 2 [facility] XR 04-[address] (GLUCOPHAGE 00:00: 00:00 (1,000 mg Hospita -XR) 500 mg 00 :00 total) by l 24 hr mouth 2 tablet (two) times a day. metFORMIN 2022- No [id number] 1000mg Q.5D Take 2 [facility] XR 04-[address] (GLUCOPHAGE 00:00: 00:00 (1,000 mg Hospita -XR) 500 mg 00 :00 total) by l 24 hr mouth 2 tablet (two) times a day. OneTouch 2022- No [id number] USE 1 [facility] Delica Plus 04-[address] Lancet 33 00:00: 00:00 THREE Hospit a gauge misc 00 :00 TIMES A l DAY OneTouch 2022- No [id number] USE 1 [facility] Verio test 04-[address] strips 00:00: 00:00 THREE Hospita strip test 00 :00 TIMES A l strips DAY OneTouch 2022- No [id number] USE 1 [facility] Delica Plus 04-[address] Lancet 33 00:00: 00:00 THREE Hospit a gauge misc 00 :00 TIMES A l DAY OneTouch 2022- No [id number] USE 1 [facility] Verio test 04-[address] strips 00:00: 00:00 THREE Hospita strip test 00 :00 TIMES A l strips DAY OneTouch 2022- No [id number] USE 1 [facility] Delica Plus 04-[address] Lancet 33 00:00: 00:00 THREE Hospit a gauge misc 00 :00 TIMES A l DAY OneTouch 2022- No [id number] USE 1 [facility] Verio test 04-[address] strips 00:00: 00:00 THREE Hospita strip test 00 :00 TIMES A l strips DAY doxycycline 2021-04- No 100mg Q.5D Take 1 [facility] (VIBRAMYCIN 1-02-[address] ) 100 MG 00:00: 05:59 (100 mg Hospi ta capsule 00 :00 total) by l mouth 2 (two) times a day for 10 days. doxycycline 2021-04- No 100mg Q.5D Take 1 [facility] (VIBRAMYCIN -02-[address] ) 100 MG 00:00: 05:59 (100 mg Hospi ta capsule 00 :00 total) by l mouth 2 (two) times a day for 10 days. doxycycline 2021-04 No 100mg Q.5D Take 1 [facility] (VIBRAMYCIN 1-10 -[address] ) 100 MG 00:00: 05:59 (100 mg Hospi ta capsule 00 :00 total) by l mouth 2 (two) times a day for 10 days. cephalexin 2021-04- No 500mg Q12H Take 1 [facility] (KEFLEX) 04-10-[address] 500 MG 00:00: 05:59 (500 mg Hospita capsule 00 :00 total) by l mouth every 12 (twelve) hours for 5 days. cephalexin 2021-04 No 500mg Q12H Take 1 [facility] (KEFLEX) 04-10 11-[address] 500 MG 00:00: 05:59 (500 mg Hospita capsule 00 :00 total) by l mouth every 12 (twelve) hours for 5 days. cephalexin 2021-04- No 500mg Q12H Take 1 [facility] (KEFLEX) 04-[address] 500 MG 00:00: 05:59 (500 mg Hospita capsule 00 :00 total) by l mouth every 12 (twelve) hours for 5 days. spironolact 2021-04- No 50mg QD Take 50 mg [facility] one 0-13 10-[address] (ALDACTONE) 14:02: 00:00 daily. Hos shellie 100 MG 02 :00 l tablet spironolact 2021-04 No 50mg QD Take 50 mg [facility] one 0-13 10-[address] (ALDACTONE) 14:02: 00:00 daily. Hos shellie 100 MG 02 :00 l tablet spironolact 2021-04- No 50mg QD Take 1 [facility] one 0-12 -11 tablet (50 st (Aldactone) 00:00: 00:00 mg total) Hospita 50 MG 00 :00 by mouth l tablet daily. spironolact 2021-04- No 50mg QD Take 1 [facility] one 0-12 -11 tablet (50 st (Aldactone) 00:00: 00:00 mg total) Hospita 50 MG 00 :00 by mouth l tablet daily. spironolact 2021-04- No 50mg QD Take 1 [facility] one -11 tablet (50 st (Aldactone) 00:00: 00:00 mg total) Hospita 50 MG 00 :00 by mouth l tablet daily. abatacept 2021- No 125mg Q7D Inject 125 [facility] (Orencia) 01-02- mg under st 125 mg/mL 16:32: 00:00 the skin Hos shellie injection 55 :00 once a l week. abatacept 2021- No 125mg Q7D Inject 125 [facility] (Orencia) 01-02- mg under st 125 mg/mL 16:32: 00:00 the skin Hos shellie injection 55 :00 once a l week. UNABLE TO 2021- No Sulfate- 2 M ethodi FIND 01-[address] 15:50: 00:00 Hospita 45 :00 l UNABLE TO 2021- No Sulfate- 2 M ethodi FIND 01-[address] 15:50: 00:00 Hospita 45 :00 l rosuvastati Yes TAKE 1 Meth kalani n (CRESTOR) 12-[address] 40 MG 00:00: MOUTH Hospita tablet 00 EVERY DAY l AT NIGHT rosuvastati Yes TAKE 1 Meth kalani n (CRESTOR) 12-[address] 40 MG 00:00: MOUTH Hospita tablet 00 EVERY DAY l AT NIGHT rosuvastati 2022- No TAKE 1 Met hodi n (CRESTOR) 12-13- TABLET BY st 40 MG 00:00: 00:00 MOUTH Hospita tablet 00 :00 EVERY DAY l AT NIGHT ezetimibe 2022- No 10mg QD Take 1 Metho di (ZETIA) 10 11-09- tablet (10 st mg tablet 00:00: 04:59 mg total) Ho spita 00 :00 by mouth l daily. ezetimibe 2022- No 10mg QD Take 1 Metho di (ZETIA) 10 11-09- tablet (10 st mg tablet 00:00: 04:59 mg total) Ho spita 00 :00 by mouth l daily. ezetimibe 2022- No 10mg QD Take 1 Metho di (ZETIA) 10 11-09 tablet (10 st mg tablet 00:00: 04:59 mg total) Ho spita 00 :00 by mouth l daily. metFORMIN 2021-2022- No [id number] 1000mg Q.5D Take 2 [facility] XR 10-[address] (GLUCOPHAGE 00:00: 00:00 (1,000 mg Hospita -XR) 500 mg 00 :00 total) by l 24 hr mouth 2 tablet (two) times a day. metFORMIN 2021-2022- No [id number] 1000mg Q.5D Take 2 [facility] XR 10-[address] (GLUCOPHAGE 00:00: 00:00 (1,000 mg Hospita -XR) 500 mg 00 :00 total) by l 24 hr mouth 2 tablet (two) times a day. metFORMIN 2021-2022- No [id number] 1000mg Q.5D Take 2 [facility] XR 10-[address] (GLUCOPHAGE 00:00: 00:00 (1,000 mg Hospita -XR) 500 mg 00 :00 total) by l 24 hr mouth 2 tablet (two) times a day. irbesartan 2021-2022- No 300mg QD Take 1 [facility] (Avapro) 5-26 05-[address] 300 MG 00:00: 00:00 (300 mg Hospita tablet 00 :00 total) by l mouth nightly. irbesartan 2021-2022- No 300mg QD Take 1 [facility] (Avapro) 5-26 05-[address] 300 MG 00:00: 00:00 (300 mg Hospita tablet 00 :00 total) by l mouth nightly. irbesartan 2021-0 2022- No 300mg QD Take 1 [facility] (Avapro) 5-26 05-[address] 300 MG 00:00: 00:00 (300 mg Hospita tablet 00 :00 total) by l mouth nightly. levothyroxi 2021-2022- No [id number] 88ug QD Take 1 [facility] ne 07-13 tablet (88 st (Synthroid) 00:00: 00:00 mcg total) Hospita 88 mcg 00 :00 by mouth l tablet daily. levothyroxi 2022- No [id number] 88ug QD Take 1 [facility] ne 07-13 tablet (88 st (Synthroid) 00:00: 00:00 mcg total) Hospita 88 mcg 00 :00 by mouth l tablet daily. levothyroxi 2022- No [id number] 88ug QD Take 1 [facility] ne 07-13 tablet (88 st (Synthroid) 00:00: 00:00 mcg total) Hospita 88 mcg 00 :00 by mouth l tablet daily. empaglifloz 2021- No [id number] 10mg QD Take 1 [facility] in 10 mg 07-13 tablet (10 st tablet 00:00: 00:00 mg total) Hospi ta tablet 00 :00 by mouth l daily. isosorbide No 30mg Q.5D Take 1 [facility] mononitrate 07-06 tablet (30 s t (IMDUR) 30 00:00: 00:00 mg total) H ospita MG 24 hr 00 :00 by mouth 2 l tablet (two) times a day. rosuvastati No 40mg QD Take 1 Met [facility] n (CRESTOR) 06-08 tablet (40 s t 40 MG 00:00: 00:00 mg total) Hospit a tablet 00 :00 by mouth l nightly. rosuvastati No 40mg QD Take 1 Met [facility] n (CRESTOR) 06-08 tablet (40 s t 40 MG 00:00: 00:00 mg total) Hospit a tablet 00 :00 by mouth l nightly. OneTouch 2020-04- No [id number] 1{devic Q.27455827 1 Device 3 [facility] Delica Plus 2-04-15 e} [id number] (three) st Lancet 33 00:00: 00:00 3D times a Hosp marcial gauge misc 00 :00 day. l OneTouch 2020-04- No [id number] 1{strip Q.61962809 1 strip 3 [facility] Verio test 05-28 } [id number] (three) st strips 00:00: 00:00 3D times a Hospita strip test 00 :00 day. l strips OneTouch 2020-043- No [id number] 1{devic Q.52288510 1 Device 3 [facility] Delica Plus 05-28 e} [id number] (three) st Lancet 33 00:00: 00:00 3D times a Hosp marcial gauge misc 00 :00 day. l OneTouch 2020-043- No [id number] 1{strip Q.47228399 1 strip 3 [facility] Verio test 05-28 } [id number] (three) st strips 00:00: 00:00 3D times a Hospita strip test 00 :00 day. l strips OneTouch 2020-043- No [id number] 1{devic Q.84106536 1 Device 3 [facility] Delica Plus 05-28 e} [id number] (three) st Lancet 33 00:00: 00:00 3D times a Hosp marcial gauge misc 00 :00 day. l OneTouch 2020-043- No [id number] 1{strip Q.21666815 1 strip 3 [facility] Verio test 05-28 } [id number] (three) st strips 00:00: 00:00 3D times a Hospita strip test 00 :00 day. l strips nitroglycer 2022- No DISSOLVE 1 [facility] in 12-[address] (NITROSTAT) 00:00: 00:00 UNDER THE Hospita 0.4 MG SL 00 :00 TONGUE l tablet EVERY 5 MINUTES NEEDED FOR CHEST PAIN. MAX OF 3 TABLETS IN 15 MINUTES. CALL 911 IF PAIN PERSISTS nitroglycer 2022- No DISSOLVE 1 [facility] in 12-[address] (NITROSTAT) 00:00: 00:00 UNDER THE Hospita 0.4 MG SL 00 :00 TONGUE l tablet EVERY 5 MINUTES NEEDED FOR CHEST PAIN. MAX OF 3 TABLETS IN 15 MINUTES. CALL 911 IF PAIN PERSISTS nitroglycer 2022- No DISSOLVE 1 [facility] in 9-03 05-[address] (NITROSTAT) 00:00: 00:00 UNDER THE Hospita 0.4 MG SL 00 :00 TONGUE l tablet EVERY 5 MINUTES NEEDED FOR CHEST PAIN. MAX OF 3 TABLETS IN 15 MINUTES. CALL 911 IF PAIN PERSISTS nitroglycer 2021- No .4mg QD Place 1 [facility] in 12-0815 patch (0.4 st (NITRODUR) 00:00: 00:00 mg total) H ospita 0.4 mg/hr 00 :00 on the l skin daily. Apply patch daily, remove at night for at least 10 hours carvediloL 2022- No [id number] 25mg Q.5D Take 1 [facility] (COREG) 25 10-10 tablet (25 st MG tablet 00:00: 00:00 mg total) Ho spita 00 :00 by mouth 2 l (two) times a day. carvediloL 2022- No [id number] 25mg Q.5D Take 1 [facility] (COREG) 25 10-10 tablet (25 st MG tablet 00:00: 00:00 mg total) Ho spita 00 :00 by mouth 2 l (two) times a day. carvediloL 2022- No [id number] 25mg Q.5D Take 1 [facility] (COREG) 25 10-10 tablet (25 st MG tablet 00:00: 00:00 mg total) Ho spita 00 :00 by mouth 2 l (two) times a day. tiZANidine 2018-04- No as needed. [facility] (ZANAFLEX) 04-19 st 4 MG tablet 00:00: 00:00 Hospi ta 00 :00 l tiZANidine 2018-04- No as needed. [facility] (ZANAFLEX) 04-19 st 4 MG tablet 00:00: 00:00 Hospi ta 00 :00 l tiZANidine 2018-04- No as needed. [facility] (ZANAFLEX) 04-19 st 4 MG tablet 00:00: 00:00 Hospi ta 00 :00 l potassium 2018-04 Yes 8meq QD Take 1 [facility] chloride 1-10 tablet (8 st (KLOR-CON) 00:00: mEq total) H ospita 8 MEQ CR 00 by mouth l tablet daily. potassium 2018-04 Yes 8meq QD Take 1 [facility] chloride 1-10 tablet (8 st (KLOR-CON) 00:00: mEq total) H ospita 8 MEQ CR 00 by mouth l tablet daily. potassium 2018-04 Yes 8meq QD Take 1 [facility] chloride 1-10 tablet (8 st (KLOR-CON) 00:00: mEq total) H ospita 8 MEQ CR 00 by mouth l tablet daily. pregabalin 2018-04- No TAKE 1 [facility] (LYRICA) 75 04-13 07-15 CAPSULE BY s t MG capsule 00:00: 00:00 MOUTH 12 Ho spita 00 :00 HOURS l NEEDED meclizine 2018-04- No 25mg Q24H Take 25 mg M ethodi (ANTIVERT) 04-[address] 25 mg 00:00: 00:00 daily as Hospita tablet 00 :00 needed. l meclizine 2018-04- No 25mg Q24H Take 25 mg M ethodi (ANTIVERT) 04-[address] 25 mg 00:00: 00:00 daily as Hospita tablet 00 :00 needed. l meclizine 2018-04- No 25mg Q24H Take 25 mg M ethodi (ANTIVERT) 04-[address] 25 mg 00:00: 00:00 daily as Hospita tablet 00 :00 needed. l blood-gluco 2018-0 Yes Use as [facility] se meter 7-[address] misc 00:00: Hospita 00 l blood-gluco 2019-0 Yes Use as [facility] se meter 7-[address] misc 00:00: Hospita 00 l blood-gluco 2019-0 Yes Use as [facility] se meter 7-[address] misc 00:00: Hospita 00 l HYDROcodone 2018- Yes 1{tbl} Q8H Take 1 [facility] -acetaminop 4-[address] hen (NORCO) 00:00: mouth Hospi ta 7.5-325 mg 00 every 8 l per tablet (eight) hours as needed for mild pain. HYDROcodone Yes 1{tbl} Q8H Take 1 [facility] -acetaminop 4-[address] hen (NORCO) 00:00: mouth Hospi ta 7.5-325 mg 00 every 8 l per tablet (eight) hours as needed for mild pain. HYDROcodone 2018- Yes 1{tbl} Q8H Take 1 [facility] -acetaminop 4-[address] hen (NORCO) 00:00: mouth Hospi ta 7.5-325 mg 00 every 8 l per tablet (eight) hours as needed for mild pain. RESTASIS 2015-04- No 1[drp] Q12H Administer [facility] 0.05 % 05-04-[address] ophthalmic 00:00: 00:00 both eyes H ospita emulsion 00 :00 every 12 l (twelve) hours. RESTASIS 2015-04- No 1[drp] Q12H Administer [facility] 0.05 % 05-[address] ophthalmic 00:00: 00:00 both eyes H ospita emulsion 00 :00 every 12 l (twelve) hours. RESTASIS 2015-04- No 1[drp] Q12H Administer [facility] 0.05 % 05-04-[address] ophthalmic 00:00: 00:00 both eyes H ospita emulsion 00 :00 every 12 l (twelve) hours. pantoprazol 2015-04 Yes 40mg QD Take 1 [facility] e 1-10 tablet (40 st (PROTONIX) 00:00: mg total) Ho spita 40 MG EC 00 by mouth l tablet daily. pantoprazol 2015-04 Yes 40mg QD Take 1 [facility] e 1-10 tablet (40 st (PROTONIX) 00:00: mg total) Ho spita 40 MG EC 00 by mouth l tablet daily. pantoprazol 2015-04 Yes 40mg QD Take 1 [facility] e 1-10 tablet (40 st (PROTONIX) 00:00: mg total) Ho spita 40 MG EC 00 by mouth l tablet daily. hydroxychlo hydroxychlo No hydroxychl [facility] roquine 200 roquine 200 oroquine Medical mg tablet mg tablet 200 mg tablet irbesartan irbesartan No irbesartan [facility] 300 mg 300 mg 300 mg Medical tablet tablet tablet Klor-Con 8 Klor-Con 8 No Klor-Con 8 [facility] mEq mEq mEq Medical tablet,exte tablet,exte tablet,ext nded nded ended release release release TAKE 1 TAKE 1 TAKE 1 TABLET BY TABLET BY TABLET BY MOUTH EVERY MOUTH EVERY MOUTH DAY DAY EVERY DAY leflunomide leflunomide No leflunomid [facility] 20 mg 20 mg e 20 mg Medical tablet Take tablet Take tablet 1 tablet 1 tablet Take 1 every day every day tablet by oral by oral every day route. route. by oral route. levothyroxi levothyroxi No levothyrox [facility] ne 75 mcg ne 75 mcg ine 75 mcg Medical tablet TAKE tablet TAKE tablet 1 TABLET BY 1 TABLET BY TAKE 1 MOUTH IN MOUTH IN TABLET BY THE MORNING THE MORNING MOUTH IN ON AN EMPTY ON AN EMPTY THE STOMACH STOMACH MORNING ON AN EMPTY STOMACH levothyroxi levothyroxi No levothyrox [facility] ne 88 mcg ne 88 mcg ine 88 mcg Medical tablet tablet tablet lidocaine-p lidocaine-p No lidocaine- [facility] rilocaine rilocaine prilocaine Medical 2.5 %-2.5 % 2.5 %-2.5 % 2.5 %-2.5 topical topical % topical cream APPLY cream APPLY cream 2 TO 3 2 TO 3 APPLY 2 TO GRAMS TO GRAMS TO 3 GRAMS TO AFFECTED AFFECTED AFFECTED AREA(S) 3 AREA(S) 3 AREA(S) 3 TO 4 TIMES TO 4 TIMES TO 4 TIMES DAILY DAILY DAILY NEEDED FOR NEEDED FOR NEEDED FOR PAIN PAIN PAIN Lumigan Lumigan No Lumigan [facility] 0.01 % eye 0.01 % eye 0.01 % eye Medical drops drops drops INSTILL 1 INSTILL 1 INSTILL 1 DROP IN DROP IN DROP IN EACH EYE EACH EYE EACH EYE EVERY NIGHT EVERY NIGHT EVERY AT BEDTIME AT BEDTIME NIGHT AT BEDTIME metformin metformin No metformin [facility] ER 500 mg ER 500 mg ER 500 mg Medical tablet,exte tablet,exte tablet,ext nded nded ended release 24 release 24 release 24 hr hr hr methylpredn methylpredn No methylpred [facility] isolone 4 isolone 4 nisolone 4 Medical mg tablets mg tablets mg tablets in a dose in a dose in a dose pack pack pack nitroglycer nitroglycer No nitroglyce [facility] in 0.4 mg in 0.4 mg rin 0.4 mg Medical sublingual sublingual sublingual tablet tablet tablet PLACE [address] 1 TABLET TABLET TABLET UNDER TO UNDER TO UNDER TO TONGUE TONGUE TONGUE EVERY 5 EVERY 5 EVERY 5 MINUTES MINUTES MINUTES NEEDED FOR NEEDED FOR NEEDED FOR CHEST PAIN CHEST PAIN CHEST PAIN ( MAX DOSES ( MAX DOSES ( MAX THEN CALLL THEN CALLL DOSES THEN 911 911 CALLL 911 nitroglycer nitroglycer No nitroglyce [facility] in 0.4 in 0.4 rin 0.4 Medical mg/hr mg/hr mg/hr transdermal transdermal transderma 24 hour 24 hour l 24 hour patch patch patch OneTouch OneTouch No OneTouch [facility] via Delica Plus Delica Plus [facility] Lancet 33 Lancet 33 Plus gauge USE gauge USE Lancet 33 TO TEST TO TEST gauge USE TWICE A DAY TWICE A DAY TO TEST TWICE A DAY OneTouch OneTouch No OneTouch [facility] via Ultra Blue Ultra Blue Ultra Blue Medical Test Strip Test Strip Test Strip USE TO TEST USE TO TEST USE TO TWICE A DAY TWICE A DAY TEST TWICE A DAY OneTouch OneTouch No OneTouch [facility] via Verio IQ Verio IQ Verio IQ Med ical Meter Meter Meter OneTouch OneTouch No OneTouch [facility] via Verio test Verio test Verio test Medical strips USE strips USE strips USE TO TEST TO TEST TO TEST ONCE A DAY ONCE A DAY ONCE A DAY Orencia 125 Orencia 125 No Orencia [facility] mg/mL mg/mL 125 mg/mL Medical subcutaneou subcutaneou subcutaneo s syringe s syringe us syringe Inject 1 mL Inject 1 mL Inject 1 every week every week mL every by by week by subcutaneou subcutaneou subcutaneo s route. s route. us route. Orencia Orencia No Orencia [facility] ClickJect ClickJect ClickJect Medical 125 mg/mL 125 mg/mL 125 mg/mL subcutaneou subcutaneou subcutaneo s s us auto-inject auto-inject auto-injec or or tor pantoprazol pantoprazol No pantoprazo [facility] e 40 mg e 40 mg le 40 mg Medic al tablet,dana tablet,dana tablet,del yed release yed release ayed release prednisone prednisone No prednisone [facility] 5 mg tablet 5 mg tablet 5 mg M edical TAKE 1 TAKE 1 tablet TABLET BY TABLET BY TAKE 1 MOUTH EVERY MOUTH EVERY TABLET BY DAY DAY MOUTH EVERY DAY pregabalin pregabalin No pregabalin [facility] 75 mg 75 mg 75 mg Medical capsule capsule capsule TAKE 1 TAKE 1 TAKE 1 CAPSULE BY CAPSULE BY CAPSULE BY MOUTH EVERY MOUTH EVERY MOUTH 12 HOURS 12 HOURS EVERY 12 HOURS Prevnar 13 Prevnar 13 No Prevnar 13 [facility] (PF) 0.5 mL (PF) 0.5 mL (PF) 0.5 Medical intramuscul intramuscul mL ar syringe ar syringe intramuscu PHARMACY PHARMACY lar ADMINISTERE ADMINISTERE syringe D D PHARMACY ADMINISTER ED Restasis Restasis No Restasis [facility] via 0.05 % eye 0.05 % eye 0.05 % eye Medical drops in a drops in a drops in a dropperette dropperette dropperett INSTILL 1 INSTILL 1 e INSTILL DROP IN DROP IN 1 DROP IN EACH EYE EACH EYE EACH EYE TWICE DAILY TWICE DAILY TWICE DAILY Restasis Restasis No Restasis [facility] via MultiDose MultiDose MultiDose Medical 0.05 % eye 0.05 % eye 0.05 % eye drops drops drops rosuvastati rosuvastati No rosuvastat [facility] n 40 mg n 40 mg in 40 mg Medic al tablet Take tablet Take tablet 1 tablet 1 tablet Take 1 every day every day tablet by oral by oral every day route. route. by oral route. spironolact spironolact No spironolac [facility] one 25 mg one 25 mg tone 25 mg Medical tablet Take tablet Take tablet 1 tablet 1 tablet Take 1 every day every day tablet by oral by oral every day route. route. by oral route. sulfasalazi sulfasalazi No sulfasalaz [facility] ne 500 mg ne 500 mg ine 500 mg Medical tablet tablet tablet tizanidine tizanidine No tizanidine [facility] 4 mg tablet 4 mg tablet 4 mg M edical TAKE 1 TAKE 1 tablet TABLET BY TABLET BY TAKE 1 MOUTH MOUTH TABLET BY EVERYDAY AT EVERYDAY AT MOUTH BEDTIME BEDTIME EVERYDAY NEEDED FOR NEEDED FOR AT BEDTIME MUSCLE MUSCLE NEEDED SPASMS SPASMS FOR MUSCLE SPASMS Sandie Sandie No Sandie [facility] Aspirin Aspirin Aspirin [facility] l carvedilol carvedilol No carvedilol [facility] 25 mg 25 mg 25 mg Medical tablet Take tablet Take tablet 1 tablet 1 tablet Take 1 twice a day twice a day tablet by oral by oral twice a route. route. day by oral route. Forteo 20 Forteo 20 No Forteo 20 [facility] mcg/dose mcg/dose mcg/dose Med ical (600 (600 (600 mcg/2.4 mL) mcg/2.4 mL) mcg/2.4 subcutaneou subcutaneou mL) s pen s pen subcutaneo injector injector us pen injector furosemide furosemide No furosemide [facility] 20 mg 20 mg 20 mg Medical tablet TAKE tablet TAKE tablet 1 TABLET BY 1 TABLET BY TAKE 1 MOUTH EVERY MOUTH EVERY TABLET BY DAY DAY MOUTH EVERY DAY hydralazine hydralazine No hydralazin [facility] 25 mg 25 mg e 25 mg Medical tablet tablet tablet hydrocodone hydrocodone No hydrocodon [facility] 10 10 e 10 Medical mg-acetamin mg-acetamin mg-acetami ophen 325 ophen 325 nophen 325 mg tablet mg tablet mg tablet hydrocodone hydrocodone No hydrocodon [facility] 7.5 7.5 e 7.5 Medical mg-acetamin mg-acetamin mg-acetami ophen 325 ophen 325 nophen 325 mg tablet mg tablet mg tablet TAKE 1 TAKE 1 TAKE 1 TABLET BY TABLET BY TABLET BY MOUTH TWICE MOUTH TWICE MOUTH A DAY A DAY TWICE A NEEDED NEEDED DAY NEEDED Immunizations Ordered Filled Date Status Comments Source [facility]ization Name [facility] 00:00:00 [facility]- 2021-01-19 Completed [facility] 00:00[facility] 2021-01-19 [facility] ([facility]ARS-[facility]OV-2) (SARS-COV-2) 00:00:00 vaccine, vaccine, unspecified unspecified influenza, influenza, 2021-01-15 Completed [facility] unspecified unspecified 00:00:00 formulation formulation SARS-COV-2 COVID-2020-07-02 Completed Unive rs[facility] of [facility]ER[facility] 12+ YRS 00:00:00 [place] [facility] SARS-COV-2 COVID-19 2020-07-02 Completed [facility]ive rs[facility] of [facility]ER[facility] 12+ YRS 00:00:00 [place] [facility] V[facility] SARS-COV-2 COVID-19 2020-07-02 Completed Unive rs[facility] of MODERNA 12+ YRS 00:00:00 [facility] ical VACCINE Branch SARS-COV-2 COVID-19 2020-07-02 Completed Unive rs[facility] of MODERNA 12+ YRS 00:00:00 [place] [facility] SARS-COV-2 COVID-19 2020-07-02 Completed Unive rs[facility] of MODERNA 12+ YRS 00:00:00 [place] [facility] SARS-COV-2 COVID-19 2020-07-02 Completed Unive rsity of MODERNA 12+ YRS 00:00:00 [facility] ical VACCINE Branch MODERNA COVID-19 2020-06-19 Completed [facility]ACC[facility]ATION 00:00:00 [facility] COVID-19 2020-06-19 Completed [facility] MRNA VACCINATION 00:00:00 [facility] COVID-19 COVID-19 2020-06-19 Completed [facility] (SARS-COV-2) (SARS-COV-2) 00:00:00 vaccine, vaccine, unspecified unspecified SARS-COV-2 COVID-19 2020-06-04 Completed Unive rs[facility] of MODERNA 12+ YRS 00:00:00 [facility] ical VACCINE Branch SARS-COV-2 COVID-19 2020-06-04 Completed Unive rsity of MODERNA 12+ YRS 00:00:00 [place] [facility] VACCINE [facility] SARS-COV-2 COVID-19 2020-06-04 Completed [facility]ive rs[facility] of MODERNA 12+ YRS 00:00:00 [place] [facility] SARS-COV-2 COVID-19 2020-06-04 Completed Unive rsity of MODERNA 12+ YRS 00:00:00 [place] [facility] V[facility]INE [facility] SARS-COV-2 COVID-19 2020-06-04 Completed Unive rsity of MODERNA 12+ YRS 00:00:00 [place] [facility] VACCINE [facility] SARS-COV-2 COVID-19 2020-06-04 Completed Unive rsity of MODERNA 12+ YRS 00:00:00 [facility] ical VACCINE Branch MOD[facility]NA COVID-19 2020-05-22 Completed [facility] t MRNA VACCINATION 00:00:00 Hospital [facility] COVID-19 2020-05-22 Completed [facility] MRNA VACCINATION 00:00:00 [facility] COVID-19 COVID-19 2020-05-22 Completed [facility] (SARS-COV-2) (SARS-COV-2) 00:00:00 vaccine, vaccine, unspecified unspecified influenza, influenza, 2020-01-15 Completed [facility] unspecified unspecified 00:00:00 formulation formulation influenza, influenza, 2019-02-04 Completed [facility] unspecified unspecified 00:00:00 formulation formulation influenza, influenza, 2017-01-27 Completed [facility] injectable, injectable, 00:00:00 quadrivalent quadrivalent [facility] COVID-19 Unknown Completed [facility] COVID19 Unknown Completed [facility] Unknown Completed [facility] Vital Signs Vital Name Observation Time Observation Value Comments Source Systolic blood 2022-08-02 16:00:00 125 mm[Hg] Univer [facility] Diastolic blood 2022-08-02 16:00:00 71 mm[Hg] Unive rsity [facility] Heart rate 2022-08-02 16:00:00 68 /min [facility] Body height 2022-08-02 16:00:00 157.5 cm [facility] Body weight 2022-08-02 16:00:00 87.816 kg [facility] BMI 2022-08-02 16:00:00 35.41 kg/m2 [facility] BP Diastolic 2021-03-22 00:00:00 78 mm[Hg] [facility] Height 2021-03-22 00:00:00 62 [in_i] [facility] (Body Mass 2021-03-22 00:00:00 36.3 kg/m2 [facility] Medical Index) BP Systolic 2021-03-22 00:00:00 120 mm[Hg] [facility] Body Weight 2021-03-22 00:00:00 198.6 [lb_av] [facility] Systolic blood 2023-01-20 14:00:00 174 mm[Hg] Method ist [facility] pressure Diastolic blood 2023-01-20 14:00:00 79 mm[Hg] [facility] pressure Heart rate 2023-01-20 14:00:00 69 /min [facility] Body height 2023-01-20 14:00:00 149.9 cm [facility] Body weight 2023-01-20 14:00:00 74.39 kg [facility] BMI 2023-01-20 14:00:00 33.12 kg/m2 [facility] Systolic blood 2022-11-04 15:01:00 133 mm[Hg] Method [facility] Hospital pressure Diastolic blood 2022-11-04 15:01:00 60 mm[Hg] [facility] Heart rate 2022-11-04 15:01:00 70 /min [facility] Body height 2022-11-04 15:01:00 149.9 cm [facility] Body weight 2022-11-04 15:01:00 80.74 kg [facility] BMI 2022-11-04 15:01:00 35.95 kg/m2 [facility] Respiratory rate 2022-10-31 22:00:00 18 /min [facility] Oxygen saturation in 2022-10-31 22:00:00 95 /min [facility] Arterial blood by Pulse oximetry Body temperature 2022-10-31 21:20:00 35.94 Winnie [facility] Systolic blood 2022-10-03 17:55:00 98 mm[Hg] Method [facility] pressure Diastolic blood 2022-10-03 17:55:00 61 mm[Hg] [facility] pressure Heart rate 2022-10-03 17:55:00 81 /min [facility] Body height 2022-10-03 17:55:00 149.9 cm [facility] Body weight 2022-10-03 17:55:00 84.46 kg [facility] BMI 2022-10-03 17:55:00 37.61 kg/m2 [facility] Body temperature 2022-09-19 12:38:19 36.11 Winnie [facility] Respiratory rate 2022-09-19 12:38:19 18 /min [facility] Oxygen saturation in 2022-09-19 12:38:19 90 /min [facility] Arterial blood by Pulse oximetry Procedures Procedure Date / Time Performing Clinician Source Performed POC GLUCOSE 2022-10-31 21:20:00 Kay Jonas CV RIGHT HEART CATH 2022-10-31 21:02:17 Mercedes Puga [facility] CV US GUIDED VASCULAR 2022-10-31 20:50:53 Kay Jonas [facility] ACCESS CBC WITH PLATELET AND 2022-10-31 17:56:00 Kay Jonas [facility] DIFFERENTIAL ESTIMATED GFR 2022-10-31 17:56:00 Kay Jonas spital POC PANEL 2022-10-31 17:56:00 Kay Jonas spital POC GLUCOSE 2022-10-31 17:03:00 Kay Jonas spital LIPID PANEL 2022-10-23 12:20:00 [facility] ECG 12-LEAD 2022-09-25 19:05:51 [facility] HOME HEALTH - OTHER 2022-09-24 05:01:00 Doctor Unassigned, [facility] URINE CULTURE 2022-09-19 18:07:00 Layton Grewal spital URINALYSIS SCREEN AND 2022-09-19 18:07:00 Luiza Bergman [facility] MICROSCOPY, WITH REFLEX TO CULTURE POC GLUCOSE 2022-09-19 17:56:00 Layton Grewal spital CBC WITH PLATELET AND 2022-09-19 15:04:00 [facility]FFERENTIAL COMPREHENSIVE METABOLIC 2022-09-19 15:04:00 Cyndi Johnson [facility] PANEL ESTIMATED GFR 2022-09-19 15:04:00 Layton Grewal Ho spital POC GLUCOSE 2022-09-19 13:35:00 Layton Grewal Ho spital NT-PROBNP 2022-09-19 10:10:00 Luiza Bergman Ho spital COMPREHENSIVE METABOLIC 2022-09-19 10:10:00 Layton Grewal [facility] PANEL ESTIMATED GFR 2022-09-19 10:10:00 Layton Grewal spital POTASSIUM LEVEL 2022-09-19 01:50:00 Cyndi Johnson H ospital POC GLUCOSE 2022-09-19 01:48:00 Layton Grewal Ho spital POC GLUCOSE 2022-09-18 22:40:00 Layton Grewal Ho spital POC GLUCOSE 2022-09-18 17:35:00 Layton Grewal Ho spital CBC WITH PLATELET AND 2022-09-18 14:16:00 [facility]FFER[facility]PREHENSIVE METABOLIC 2022-09-18 14:16:00 Cyndi Johnson [facility] PANEL ESTIMATED GFR 2022-09-18 14:16:00 Layton Grewal Ho spital POC GLUCOSE 2022-09-18 13:43:00 Matty Guidry [facility] POC GLUCOSE 2022-09-18 01:28:00 Avelina Guidryab [facility] POC GLUCOSE 2022-09-17 22:28:00 Avelina Guidryab [facility] POC GLUCOSE 2022-09-17 17:53:00 Avelina Guidryab [facility] COMPREHENSIVE METABOLIC 2022-09-17 15:36:00 Cyndi Johnson [facility] PANEL ESTIMATED GFR 2022-09-17 15:36:00 Matty Guidry [facility] POC GLUCOSE 2022-09-17 13:56:00 Matty Guidry [facility] CBC WITH PLATELET AND 2022-09-17 10:03:00 Matty Guidry [facility] DIFFERENTIAL POC GLUCOSE 2022-09-17 01:33:00 Matty Guidry [facility] POC GLUCOSE 2022-09-16 23:02:00 Avelina Guidryab [facility] POC GLUCOSE 2022-09-16 17:37:00 Avelina Guidryab [facility] COMPREHENSIVE METABOLIC 2022-09-16 15:47:[address] [facility] PANEL ESTIMATED GFR 2022-09-16 15:47:00 Matty Guidry [facility] POC GLUCOSE 2022-09-16 14:20:00 Avelina Guidryab [facility] CV CARDIAC PET STRESS 2022-09-16 13:32:00 Cyndi Johnson [facility] TEST CV CARDIAC PET MYOCARDIAL 2022-09-16 13:32:00 Cyndi Johnson [facility] PERFUSION IMAGING CBC WITH PLATELET AND 2022-09-16 10:26:00 Matty Guidry [facility] DIFFERENTIAL POC GLUCOSE 2022-09-16 02:11:00 Matty Guidry Ho spital POC GLUCOSE 2022-09-15 22:56:00 Matty Guidry Ho spital OCCULT BLOOD, STOOL 2022-09-15 20:50:00 [facility] POC GLUCOSE 2022-09-15 17:40:00 Matty Guidry [facility] POC GLUCOSE 2022-09-15 12:57:00 Matty Guidry [facility] CBC WITH PLATELET AND 2022-09-15 10:56:00 [facility] 2022-09-15 10:56:00 [facility] PANEL ESTIMATED GFR 2022-09-15 10:56:00 Matty Guidry Ho spital POC GLUCOSE 2022-09-15 01:35:00 Matty Guidry [facility] POC GLUCOSE 2022-09-14 23:04:00 Matty Guidry [facility] POC GLUCOSE 2022-09-14 17:19:00 Matty Guidry [facility] POC GLUCOSE 2022-09-14 12:50:00 Matty Guidry [facility] PROTHROMBIN TIME WITH INR 2022-09-14 10:38:00 Matty Guidry [facility] CBC WITH PLATELET AND 2022-09-14 10:38:00 [facility] DIFFERENTIAL COMPREHENSIVE METABOLIC 2022-09-14 10:38:00 [facility] PANEL ESTIMATED GFR 2022-09-14 10:38:00 Matty Guidry [facility] POC GLUCOSE 2022-09-14 01:48:00 Matty Guidry [facility] POC GLUCOSE 2022-09-13 22:47:00 Matty Guidry [facility] POC GLUCOSE 2022-09-13 18:01:00 Matty Guidry Ho spital US DUPLEX VENOUS LOWER 2022-09-13 13:44:00 Matty Guidry [facility] EXTREMITY BILATERAL POC GLUCOSE 2022-09-13 12:55:00 Matty Guidry Ho spital CBC WITH PLATELET AND 2022-09-13 10:05:00 [facility] DIFFERENTIAL COMPREHENSIVE METABOLIC 2022-09-13 10:05:00 [facility] PANEL ESTIMATED GFR 2022-09-13 10:05:00 [facility] TTE COMPLETE, W CONTRAST, 2022-09-13 04:30:00 [facility] W D[facility] ([id number]) MRI LUMBAR SPINE WO 2022-09-13 02:09:00 [facility] TROPONIN T 2022-09-13 00:52:00 Kaylyn [facility] URINE CULTURE 2022-09-13 00:28:00 [facility] spital URINALYSIS SCREEN AND 2022-09-12 23:48:00 [facility] MICROSCOPY, WITH REFLEX TO CULTURE POC GLUCOSE 2022-09-12 22:35:00 Matty Guidry [facility] spital CT ANGIOGRAM PE CHEST 2022-09-12 21:46:49 [facility] TROPONIN T 2022-09-12 21:05:00 [facility] XR CHEST 1 VW PORTABLE 2022-09-12 19:34:30 [facility] ECG ED PRELIMINARY 2022-09-12 19:04:01 [facility] INTERPRETATION CBC WITH PLATELET AND 2022-09-12 18:10:00 Vern Patiño [facility] DIFFERENTIAL COMPREHENSIVE METABOLIC 2022-09-12 18:10:00 PatiñoVern clements [facility] PANEL TROPONIN T 2022-09-12 18:10:00 [facility] NT-PROBNP 2022-09-12 18:10:00 [facility] ESTIMATED GFR 2022-09-12 18:10:00 [facility] ECG 12-LEAD 2022-09-12 18:03:13 [facility] MEDICAL RELEASE/CLEARANCE 2022-09-05 05:01:00 Doctor Unassigned, [facility] FORMS [facility] VITAMIN D 25 HYDROXY 2022-07-10 13:03:00 [facility] LEVEL B. VITAMIN B12 LEVEL 2022-07-10 13:03:00 [facility] B. COMPREHENSIVE METABOLIC 2022-07-10 13:03:[address] [facility] PANEL B. HEMOGLOBIN A1C 2022-07-10 13:03:00 [facility] B. LIPID PANEL 2022-07-10 13:03:00 [facility] B. ALBUMIN WITH CREATININE 2022-07-10 13:03:[address] [facility] AND RATIO, RANDOM URINE B. T4, FREE 2022-07-10 13:03:00 [facility] B. THYROID STIMULATING 2022-07-10 13:03:00 [facility] HORMONE B. TTE COMPLETE, WO 2022-05-15 21:36:58 [facility] CONTR[facility], W DOPPLER ([id number]) COMPREHENSIVE METABOLIC 2022-04-10 13:16:[address] [facility] PANEL B. IRON LEVEL 2022-04-10 13:16:00 [facility] B. HEMOGLOBIN A1C 2022-04-10 13:16:00 [facility] B. ALBUMIN WITH CREATININE 2022-04-10 13:16:[address] [facility] AND RATIO, RANDOM URINE B. LIPID PANEL 2022-04-10 13:16:00 [facility] B. VITAMIN D 25 HYDROXY 2022-04-10 13:16:00 [facility] LEVEL B. XR KNEE 3 VW RIGHT 2022-02-06 14:17:02 [facility] XR LEG LENGTH EVALUATION 2022-02-06 14:16:47 [facility] COMPREHENSIVE METABOLIC 2022-01-19 13:25:[address] [facility] PANEL B. HEMOGLOBIN A1C 2022-01-19 13:25:00 [facility] B. LIPID PANEL 2022-01-19 13:25:00 [facility] B. VITAMIN D 25 HYDROXY 2022-01-19 13:25:00 [facility] LEVEL B. VITAMIN B12 LEVEL 2022-01-19 13:25:00 [facility] B. T4, FREE 2022-01-19 13:25:00 [facility] B. IRON LEVEL 2022-01-19 13:25:00 [facility] B. THYROID STIMULATING 2022-01-19 13:25:00 [facility] HORMONE B. ALBUMIN WITH CREATININE 2022-01-19 13:25:[address] [facility] AND RATIO, RANDOM URINE B. DURABLE MEDICAL EQUIPMENT 2022-01-16 16:42:15 [facility] CBC WITH PLATELET AND 2022-01-16 [facility]:39[facility] BASIC METABOLIC PANEL 2022-01-16 09:39[facility] MAGNESIUM LEVEL 2022-01-16 09:39:00 [facility] PHOSPHORUS LEVEL 2022-01-16 09:39:00 [facility] ESTIMATED GFR 2022-01-16 09:39:00 [facility]ital [facility] POC GLUCOSE 2022-01-15 18:43:00 [facility] SURGICAL PATHOLOGY 2022-01-15 18:02:00 [facility] REQUEST DC AN ELECTIVE 2022-01-15 17:07:00 Mateus Shearer [facility] SUPRAGLOTTIC AIRWAY ARTHROPLASTY, KNEE, TOTAL 2022-01-15 16:59:00 [facility] POC GLUCOSE 2022-01-15 15:10:00 [facility] ECG 12-LEAD 2021-11-09 16:19:52 Benjamin Stiles [facility] MAMMO, screening, 2021-03-22 00:00:00 [facility] digital, bilateral Colonoscopy 2018-01-29 00:00:00 [facility] Colonoscopy 2009-04-07 00:00:00 [facility] Hysterectomy with 2007-09-06 00:00:00 [facility] Oopherectomy (Ovaries Removed) Cardiac - Coronary Artery [facility] Medical Bypass Graft Plan of Care Planned Activity Planned Date Details Comments Source Future Scheduled 2023-01-30 Screening for [facility] Test 10:19:45 malignant neoplasm of colon (procedure) [code = 362270092] Future Scheduled 2023-01-30 Screening for [facility] Test 10:19:45 malignant neoplasm of colon (procedure) [code = 035100581] Future Scheduled 2023-01-30 65+ PNEUMOCOCCAL [facility] Test 10:19:45 VACCINE (1 - PCV) [code = 65+ PNEUMOCOCCAL VACCINE (1 - PCV)] Future Scheduled 2023-01-30 DIABETES: RETINAL EYE [facility] Test 10:19:45 EXAM [code = DIABETES: RETINAL EYE EXAM] Future Scheduled 2023-01-30 DIABETIC FOOT EXAM [facility] Test 10:19:45 [code = DIABETIC FOOT EXAM] Future Scheduled 2023-01-30 Hepatitis C screening [facility] Test 10:19:45 (procedure) [code = 555398269] Future Scheduled 2023-01-30 Screening for [facility] Test 10:19:45 malignant neoplasm of cervix (procedure) [code = 736352385] Future Scheduled 2023-01-30 BREAST CANCER [facility] Test 10:19:45 SCREENING [code = BREAST CANCER SCREENING] Future Scheduled 2023-01-30 Screening for [facility] Test 10:19:45 malignant neoplasm of colon (procedure) [code = 561803996] Future Scheduled 2023-01-30 [facility]IN[facility] 10:19:45 of 2) [code = SHINGLES VACCINES (1 of 2)] Future Scheduled 2023-01-30 COVID-19 VACCINE (6 - [facility] Test 10:19:45 season) [code = COVID-19 VACCINE (6 - season)] Future Scheduled 2023-01-30 INFLUENZA VACCINE [facility] Test 10:19:45 (#1) [code = INFLUENZA VACCINE (#1)] Future Scheduled 2023-01-30 Screening for [facility] Test 10:19:45 malignant neoplasm of colon (procedure) [code = 293243439] Future Scheduled 2023-01-30 Screening for [facility] Test 10:19:45 malignant neoplasm of colon (procedure) [code = 018707570] Future Scheduled 2022-11-27 Screening for [facility] Test 13:55:58 malignant neoplasm of colon (procedure) [code = 643391568] Future Scheduled 2022-11-27 Screening for [facility] Test 13:55:58 malignant neoplasm of colon (procedure) [code = 738468761] Future Scheduled 2022-11-27 65+ PNEUMOCOCCAL [facility] Test 13:55:58 VACCINE (1 - PCV) [code = 65+ PNEUMOCOCCAL VACCINE (1 - PCV)] Future Scheduled 2022-11-27 DIABETES: RETINAL EYE [facility] Test 13:55:58 EXAM [code = DIABETES: RETINAL EYE EXAM] Future Scheduled 2022-11-27 DIABETIC FOOT EXAM [facility] Test 13:55:58 [code = DIABETIC FOOT EXAM] Future Scheduled 2022-11-27 Hepatitis C screening [facility] Test 13:55:58 (procedure) [code = 116481586] Future Scheduled 2022-11-27 Screening for [facility] Test 13:55:58 malignant neoplasm of cervix (procedure) [code = 032912400] Future Scheduled 2022-11-27 BREAST CANCER [facility] Test 13:55:58 SCREENING [code = BREAST CANCER SCREENING] Future Scheduled 2022-11-27 Screening for [facility] Test 13:55:58 malignant neoplasm of colon (procedure) [code = 699815938] Future Scheduled 2022-11-27 SHINGLES VACCINES ([address] [facility] Test 13:55:58 of 2) [code = SHINGLES VACCINES (1 of 2)] Future Scheduled 2022-11-27 COVID-19 VACCINE (6 - [facility] Test 13:55:58 Moderna series) [code = COVID-19 VACCINE (6 - Moderna series)] Future Scheduled 2022-11-27 ZZZ INFLUENZA VACCINE [facility] Test 13:55:58 [code = ZZZ INFLUENZA VACCINE] Future Scheduled 2022-11-27 Screening for [facility] Test 13:55:58 malignant neoplasm of colon (procedure) [code = 219151859] Future Scheduled 2022-11-27 Screening for [facility] Test 13:55:58 malignant neoplasm of colon (procedure) [code = 484437612] Future Scheduled 2022-10-17 Screening [facility] Test 19:48:12 malignant neoplasm of colon (procedure) [code = 202524421] Future Scheduled 2022-10-17 Screening for [facility] Test 19:48:12 malignant neoplasm of colon (procedure) [code = 882357852] Future Scheduled 2022-10-17 65+ PNEUMOCOCCAL [facility] Test 19:48:12 VACCINE (1 - PCV) [code = 65+ PNEUMOCOCCAL VACCINE (1 - PCV)] Future Scheduled 2022-10-17 DIABETES: RETINAL EYE [facility] Test 19:48:12 EXAM [code = DIABETES: RETINAL EYE EXAM] Future Scheduled 2022-10-17 DIABETIC FOOT EXAM [facility] Test 19:48:12 [code = DIABETIC FOOT EXAM] Future Scheduled 2022-10-17 Hepatitis C screening [facility] Test 19:48:12 (procedure) [code = 663325347] Future Scheduled 2022-10-17 Screening for [facility] Test 19:48:12 malignant neoplasm of cervix (procedure) [code = 225246502] Future Scheduled 2022-10-17 BREAST CANCER [facility] Test 19:48:12 SCREENING [code = BREAST CANCER SCREENING] Future Scheduled 2022-10-17 Screening for [facility] Test 19:48:12 malignant neoplasm of colon (procedure) [code = 450398071] Future Scheduled 2022-10-17 [facility]INES ([facility] 19:48:12 of 2) [code = SHINGLES VACCINES (1 of 2)] Future Scheduled 2022-10-17 COVID-19 VACCINE (6 - [facility] Test 19:48:12 Moderna series) [code = COVID-19 VACCINE (6 - Moderna series)] Future Scheduled 2022-10-17 INFLUENZA VACCINE [facility] Test 19:48:12 [code = INFLUENZA VACCINE] Future Scheduled 2022-10-17 Screening for [facility] Test 19:48:12 malignant neoplasm of colon (procedure) [code = 100812669] Future Scheduled 2022-10-17 Screening for [facility] Test 19:48:12 malignant neoplasm of colon (procedure) [code = 918102825] Diagnostic Test 2021-03-22 [place] IgE Ab [facility] Pending 00:00:00 [Units/volume] in Serum [code = 6195-2] Encounters Start End Encounter Admission Attending Care Care Encounter Source Date/Time Date/Time Type Type Clinicians Facility Department ID 2022-12-19 Outpatient JUANCARLOS Bernard [id number] [facility] 05:50:32 [place] [facility] 2022-07-02 Outpatient [facility] [id number] [facility] 10:30:00 67518 [facility] 2023-01-23 2023-01-23 Refill [place], 1.2.840.1 [id number] 2100 230984 Methodi 00:00:00 00:00:00 Benjamin Alamo 46236.1.[address] 3.430.2.7 Hospit a .3.850630 l .8 2023-01-20 2023-01-20 Office [facility], 1.2.840.1 000012261 2100 685362 Methodi 09:20:00 14:57:47 Visit Benjamin Alamo 10808.1.[address] 3.430.2.7 Hospit a .3.602712 l .8 2023-01-20 2023-01-20 Outpatient STILES, [facility] 83677 69005 [place] 00:00:00 00:00:[address] 2022-12-18 2022-12-18 Outpatient FOG_Stramel AOSM AOSM 552 3627-20 [place] 00:00:00 00:00:00 _Linda 670211 [facility] 2022-12-18 2022-12-18 Outpatient FOG_Stramel AOSM AOSM 552 3627-20 [place] 00:00:00 00:00:00 _SonnyNP 927770 [facility] 2022-12-18 2022-12-18 Outpatient FOG_Stramel AOSM AOSM 552 3627-20 [place] 00:00:00 00:00:00 _Linda 571739 [facility] 2022-12-18 2022-12-18 Outpatient FOG_Stramel AOSM AOSM 552 3627-20 [place] 00:00:00 00:00:00 _David_NP 972625 [facility] 2022-12-13 2022-12-13 Outpatient FOG_Stramel AOSM AOSM 552 3627-20 [place] 00:00:00 00:00:00 _David_NP 933579 [facility] 2022-12-06 2022-12-06 Orders Gaxiola, 1.2.840.1 [id number] 725627 1338 Methodi 00:00:00 00:00:00 Only Shannon Mejia.1.[address] 3.430.2.7 Hospit a .3.798925 l .8 2022-11-29 2022-11-29 Outpatient MARLYN Bernard, [facility] [id number] [facility] 06:29:00 06:29:00 [place] [facility] 2022-11-29 2022-11-29 Outpatient MARLYN Bernard, [facility] [id number] [facility] 06:29:00 06:29:00 [place] [facility] 2022-11-14 2022-11-14 Refill [facility], 1.2.840.1 [id number] 2100 631228 Methodi 00:00:00 00:00:[address] 3.430.2.7 Hospit a .3.562319 l .8 2022-11-14 2022-11-14 Refill [place], 1.2.840.1 039149979 2100 325773 Methodi 00:00:00 00:00:[address] 3.430.2.7 Hospit a .3.055262 l .8 2022-11-04 2022-11-04 Office Stiles, 1.2.840.1 264990266 2100 281897 Methodi 10:20:00 13:24:38 Visit Benjamin Mejia.1.[address] 3.430.2.7 Hospit a .3.434956 l .8 2022-11-04 2022-11-04 Office [facility]iles, 1.2.840.1 [id number] 2100 739004 Methodi 10:20:00 13:24:38 Visit Benjamin Alamo 93639.1.[address] 3.430.2.7 Hospit a .3.515438 l .8 2022-10-31 2022-10-31 [facility], 1.2.840.1 [id number] 59906 24863 Methodi 11:43:00 17:37:00 Encounter Ashrith 05169.1.[address] 3.430.2.7 Hospit a .3.857250 l .8 2022-10-31 2022-10-31 [facility], 1.2.840.1 [id number] 83359 08170 Methodi 11:43:00 17:37:00 Encounter Ashrith 13586.1.[address] 3.430.2.7 Hospit a .3.643085 l .8 2022-10-31 2022-10-31 Surgery [facility], 1.2.840.1 [id number] 044255 3051 Methodi 14:10:00 15:20:[address] 3.430.2.7 Hospit a .3.225784 l .8 2022-10-31 2022-10-31 [facility], 1.2.840.1 [id number] 757044 2016 Methodi 14:10:00 15:20:[address] 3.430.2.7 Hospit a .3.379303 l .8 2022-10-30 2022-10-30 Documentat Provider, 1.2.840.1 [id number] 2 [id number] Methodi 00:00:00 00:00:00 ion Unknown 04659.1.[address] 3.430.2.7 Hospit a .3.889964 l .8 2022-10-30 2022-10-30 Documentat Provider, 1.2.840.1 [id number] 2 [id number] Methodi 00:00:00 00:00:00 ion Unknown 61477.1.[address] 3.430.2.7 Hospit a .3.256684 l .8 2022-10-28 2022-10-28 Telephone Pritesh, 1.2.840.1 [id number] 2099 955545 Methodi 00:00:00 00:00:[address] 3.430.2.7 Hospit a .3.892728 l .8 2022-10-28 2022-10-28 Telephone Pritesh, 1.2.840.1 [id number] 2099 533698 Methodi 00:00:00 00:00:[address] 3.430.2.7 Hospit a .3.243855 l .8 2022-10-18 2022-10-18 Outpatient MARLYN Bernard, [facility] [id number] [facility] 06:00:00 06:00:00 Jg 10 [facility] 2022-10-18 2022-10-18 Orders Pritesh, 1.2.840.1 [id number] 818410 0338 Methodi 00:00:00 00:00:00 Only Ashrith 27338.1.[address] 3.430.2.7 Hospit a .3.803357 l .8 2022-10-18 2022-10-18 Orders Pritesh, 1.2.840.1 731254383 230173 9899 Methodi 00:00:00 00:00:00 Only Ashrith 37990.1.[address] 3.430.2.7 Hospit a .3.724258 l .8 2022-10-17 2022-10-17 Telephone Taniya, 1.2.840.1 [id number] 2 [id number] Methodi 00:00:00 00:00:[address] 3.430.2.7 Hospit a .3.598679 l .8 2022-10-17 2022-10-17 Telephone Taniya, 1.2.840.1 [id number] 2 [id number] Methodi 00:00:00 00:00:[address] 3.430.2.7 Hospit a .3.768506 l .8 2022-10-07 2022-10-07 Telephone Stiles, 1.2.840.1 [id number] 21 [id number] Methodi 00:00:00 00:00:[address]236.1.[address] 3.430.2.7 Hospit a .3.960095 l .8 2022-10-07 2022-10-07 Telephone [facility], 1.2.840.1 354592967 12480263 Methodi 00:00:00 00:00:00 Benjamin Alamo 41473.1.[address] 3.430.2.7 Hospit a .3.395952 l .8 2022-10-03 2022-10-03 Office Saint 1.2.840.1 238460326 060176 7756 Methodi 13:40:00 13:49:04 Visit Dre, 51111.1.[address] Melchor B. 3.430.2.7 Hospi ta .3.771193 l .8 2022-10-03 2022-10-03 Office Saint 1.2.840.1 462940625 163503 8169 Methodi 13:40:00 13:49:04 Visit Dre, 38915.1.[address] Melchor B. 3.430.2.7 Hospi ta .3.477358 l .8 2022-09-30 2022-09-30 Telephone Iarashad, 1.2.840.1 686799508 2 [id number] Methodi 00:00:00 00:00:[address] 3.430.2.7 Hospit a .3.866746 l .8 2022-09-30 2022-09-30 Telephone [facility]iles, 1.2.840.1 [id number] 21 75623971 Methodi 00:00:00 00:00:00 Benjamin Alamo [address]91.1.[address] 3.430.2.7 Hospit a .3.545720 l .8 2022-09-30 2022-09-30 Telephone Iammarino, 1.2.840.1 580007670 2 430758067 Methodi 00:00:00 00:00:[address] 3.430.2.7 Hospit a .3.713982 l .8 2022-09-30 2022-09-30 Telephone [facility]iles, 1.2.840.1 633479904 23082643 Methodi 00:00:00 00:00:00 Benjamin Alamo 78880.1.[address] 3.430.2.7 Hospit a .3.399207 l .8 2022-09-25 2022-09-26 Office Stiles, 1.2.840.1 760381095 2100 181995 Methodi 15:00:00 07:53:08 Visit Benjamin Nicole50.1.[address] 3.430.2.7 Hospit a .3.594057 l .8 2022-09-25 2022-09-26 Office [facility], 1.2.840.1 750212787 2100 503239 Methodi 15:00:00 07:53:08 Visit Benjamin Mejia.1.[address] 3.430.2.7 Hospit a .3.957051 l .8 2022-09-24 2022-09-24 Outpatient R [facility] [id number] 597 [facility] 00:00:00 00:00:00 ity of [facility] 2022-09-24 2022-09-24 Orders Doctor LEVON 1.2.840.114 371984 769 Univers 00:00:00 00:00:00 Only Unassigned, WILLIS 350.1.13.10 ity of [place] [facility] 4.2.7.2.686 Ivan as [phone] [address] 2022-09-20 2022-09-20 Telephone [place]iles, 1.2.840.1 [id number] 21 [id number] Methodi 00:00:00 00:00:00 Benjamin Alamo 87668.1.[address] 3.430.2.7 Hospit a .3.023280 l .8 2022-09-20 2022-09-20 Telephone [facility], 1.2.840.1 380921671 21 12721374 Methodi 00:00:00 00:00:00 Benjamin Alamo 31220.1.[address] 3.430.2.7 Hospit a .3.779002 l .8 2022-09-12 2022-09-19 [facility] 1.2.840.1 [id number] 2 [id number] Methodi 13:01:00 13:48:00 Encounter Matty Guidry 75942.1.[address] [place], [place] 3.430.2.7 Hospita .3.189960 l .8 2022-09-12 2022-09-19 [facility] 1.2.840.1 [id number] 4 [id number] Methodi 13:01:00 13:48:00 Encounter Matty Guidry 10209.1.[address] [place], [place] 3.430.2.7 Hospita .3.738987 l .8 2022-09-19 2022-09-19 Refill [facility]iles, 1.2.840.1 578125814 2100 135655 Methodi 00:00:00 00:00:00 Benjamin Alamo 95173.1.[address] 3.430.2.7 Hospit a .3.753110 l .8 2022-09-19 2022-09-19 Refill [place], 1.2.840.1 340580572 2099 675272 Methodi 00:00:00 00:00:00 Benjamin Alamo 53801.1.[address] 3.430.2.7 Hospit a .3.240183 l .8 2022-09-16 2022-09-16 [facility] 1.2.840.1 [id number] 2 [id number] Methodi 07:00:00 23:59:[address] 3.430.2.7 Hospit a .3.200419 l .8 2022-09-16 2022-09-16 [facility] 1.2.840.1 [id number] 2 [id number] Methodi 07:00:00 23:59:[address] 3.430.2.7 Hospit a .3.277782 l .8 2022-09-14 2022-09-14 Outpatient FOG_Munshi_ AOSM AOSM 552 3627-20 [place] 00:00:00 00:00:00 OmerKAYLA 297722 [facility] 2022-09-14 2022-09-14 Outpatient FOG_Munshi_ AOSM AOSM 552 3627-20 [place] 00:00:00 00:00:00 Omer_ 325003 [facility] 2022-09-14 2022-09-14 Outpatient FOG_Munshi_ AOSM AOSM 552 3627-20 [place] 00:00:00 00:00:00 OmerKAYLA 826881 [facility] 2022-09-14 2022-09-14 Outpatient FOG_Munshi_ AOSM AOSM 552 3627-20 [place] 00:00:00 00:00:00 Omer_ 106289 [facility] 2022-09-14 2022-09-14 Outpatient FOG_Munshi_ AOSM AOSM 552 3627-20 [place] 00:00:00 00:00:00 Omer_ 965587 [facility] 2022-09-14 2022-09-14 Outpatient FOG_Munshi_ AOSM AOSM 552 3627-20 [place] 00:00:00 00:00:00 Omer_ 361431 [facility] 2022-09-14 2022-09-14 Outpatient FOG_Munshi_ AOSM AOSM 552 3627-20 [place] 00:00:00 00:00:00 Omer_ 133161 [facility] 2022-09-12 2022-09-12 Travel 1.2.840.1 1.2.558.134 9764 567276 Methodi 00:00:00 00:00:[address] 3.430.2.7 0.2.7.3.698 Ho spita .3.075057 084.8 l .8 2022-09-12 2022-09-12 Travel 1.2.840.1 1.2.437.537 0732 465805 Methodi 00:00:00 00:00:[address] 3.430.2.7 0.2.7.3.698 Ho spita .3.568671 084.8 l .8 2022-09-12 2022-09-11 Inpatient JUANCARLOS Rueda [facility] [id number] [facility] 17:30:00 15:15:00 [facility] 2022-09-06 2022-09-06 Outpatient FOG_Munshi_ AOSM AOSM 552 3627-20 [place] 00:00:00 00:00:00 Juli 086765 [facility] 2022-09-05 2022-09-05 Outpatient FOG_A_Provi AOSM AOSM 552 3627-20 [place] 00:00:00 00:00:00 mariaa 230005 [facility] 2022-09-05 2022-09-05 Orders Doctor LEVON 1.2.840.114 [id number] 657 Univers 00:00:00 00:00:00 Only Unassigned, WILLIS 350.1.13.10 ity of [place] [facility] 4.2.7.2.686 Ivan as [phone] [address] 2022-09-04 2022-09-04 Outpatient FOG_A_Provi AOSM AOSM 552 3627-20 [place] 00:00:00 00:00:00 mariaa 235728 [facility] 2022-09-04 2022-09-04 Telephone AMBERLY Dickson 1.2.840.114 10 [id number] [facility] 00:00:00 00:00:00 [facility] 350.1.13.10 it y of [place] 4.2.7.2.686 Ivan as ISHA?BLEA [phone] Ok dical [address] MEDICAL OFFICE BUILDING 2022-09-03 2022-09-03 Outpatient FOG_A_Provi AOSM AOSM 552 3627-20 [place] 00:00:00 00:00:00 mariaa 954120 [facility] 2022-09-03 2022-09-03 Refill [facility], 1.2.840.1 [id number] 2099 318064 Methodi 00:00:00 00:00:00 Benjamin Alamo 76194.1.[address] 3.430.2.7 Hospit a .3.464803 l .8 2022-09-03 2022-09-03 Refill [facility], 1.2.840.1 833714186 2099 942614 Methodi 00:00:00 00:00:00 Benjamin Alamo [address]6670.1.[address] 3.430.2.7 Hospit a .3.102812 l .8 2022-08-26 2022-08-26 Telephone Yessi [facility] 1.2.840.114 10 [id number] Univers 00:00:00 00:00:00 Kayla [facility] 350.1.13.10 it y [facility] 4.2.7.2.686 Ivan as ISHA?BLEA [phone] Ok brennen RUIZ [address] [place] [address] 2022-08-17 2022-08-17 Refill [facility], 1.2.840.1 084485670 2099 089422 Methodi 00:00:00 00:00:00 Benjamin Alamo [address]8969.1.[address] 3.430.2.7 Hospit a .3.368329 l .8 2022-08-17 2022-08-17 Refill [facility], 1.2.840.1 656458121 2099 137536 Methodi 00:00:00 00:00:00 Benjamin Alamo 40171.1.[address] 3.430.2.7 Hospit a .3.179353 l .8 2022-08-02 2022-08-02 Outpatient R YESSI [facility] 21681 42146 Univers 11:03:47 23:59:00 KAYLA zhong [facility] 2022-08-02 2022-08-02 Office Yessi [facility] 1.2.938.256 4858 19611 [facility] 11:15:00 13:04:37 Visit Kayla Pineda [facility] 350.1.13.10 it y of [place] 4.2.7.2.686 Ivan as ISHA?BLEA [phone] Ok brennen RUIZ [address] [place] [address] MEDICAL OFFICE BUILDING 2022-07-29 2022-07-29 Refill Saint 1.2.840.1 959337272 949822 5458 Methodi 00:00:00 00:00:00 Dre, 77281.1.[address] Mel[place] B. 3.430.2.7 Hospi ta .3.427463 l .8 2022-07-29 2022-07-29 Refill Saint 1.2.840.1 967776424 728082 1753 Methodi 00:00:00 00:00:00 Dre, 33857.1.[address] [place] B. 3.430.2.7 Hospi ta .3.162797 l .8 2022-07-12 2022-07-12 Refill Stiles, 1.2.840.1 515649998 2099 041277 Methodi 00:00:00 00:00:[address] 3.430.2.7 Hospit a .3.860886 l .8 2022-07-12 2022-07-12 Refill Stiles, 1.2.840.1 110893151 2099 995429 Methodi 00:00:00 00:00:[address] 3.430.2.7 Hospit a .3.513200 l .8 2022-07-05 2022-07-05 Orders Saint 1.2.840.1 962212285 386273 4052 Methodi 00:00:00 00:00:00 Only Dre, 53155.1.[address] [place] B. 3.430.2.7 Hospi ta .3.472785 l .8 2022-07-05 2022-07-05 Orders Saint 1.2.840.1 147308061 302832 8977 Methodi 00:00:00 00:00:00 Only Dre, 60895.1.[address] [place] B. 3.430.2.7 Hospi ta .3.249907 l .8 2022-06-14 2022-06-14 Orders Saint 1.2.840.1 [id number] 437995 8616 Methodi 00:00:00 00:00:00 Only Dre, 02151.1.[address] [place] B. 3.430.2.7 Hospi ta .3.116147 l .8 2022-06-14 2022-06-14 Orders Saint 1.2.840.1 740182895 699421 8979 Methodi 00:00:00 00:00:00 Only Dre, 54912.1.[address] [place] B. 3.430.2.7 Hospi ta .3.721265 l .8 2022-05-15 2022-05-15 Telephone [facility]iles, 1.2.840.1 888743385 89170005 Methodi 00:00:00 00:00:00 Benjamin Alamo 39299.1.[address] 3.430.2.7 Hospit a .3.070593 l .8 2022-05-15 2022-05-15 Travel 1.2.840.1 1.2.178.726 0050 780672 Methodi 00:00:00 00:00:[address] 3.430.2.7 0.2.7.3.698 spita .3.995389 084.8 l .8 2022-05-15 2022-05-15 Outpatient STIELS, [facility] 07441 26727 [place] 00:00:00 00:00:[address] BENJAMIN [address] 2022-05-15 2022-05-15 Telephone Stiles, 1.2.840.1 [id number] 21865553 Methodi 00:00:00 00:00:00 Benjamin Alamo 67970.1.[address] 3.430.2.7 Hospit a .3.491400 l .8 2022-05-15 2022-05-15 Travel 1.2.840.1 1.2.996.582 2218 313666 Methodi 00:00:00 00:00:[address] 3.430.2.7 0.2.7.3.698 Ho spita .3.873161 084.8 l .8 2022-05-03 2022-05-03 Office Stiles, 1.2.840.1 254874707 2099 192837 Methodi 10:00:00 15:14:48 Visit Benjamin Alamo 02731.1.[address] 3.430.2.7 Hospit a .3.159280 l .8 2022-05-03 2022-05-03 Office Stiles, 1.2.840.1 899271295 2100 008889 Methodi 10:00:00 15:14:48 Visit Benjamin Alamo 17468.1.[address] 3.430.2.7 Hospit a .3.783781 l .8 2022-04-23 2022-04-23 Orders Gaxiola, 1.2.840.1 994317391 494639 8129 Methodi 00:00:00 00:00:00 Only Shannon 33369.1.[address] 3.430.2.7 Hospit a .3.552651 l .8 2022-04-23 2022-04-23 Orders Gaxiola, 1.2.840.1 439506607 246261 5276 Methodi 00:00:00 00:00:00 Only Shannon 78348.1.[address] 3.430.2.7 Hospit a .3.508616 l .8 2022-04-18 2022-04-18 Orders Fiebrich, 1.2.840.1 041895618 2099 785080 Methodi 00:00:00 00:00:00 Only Reed 41986.1.[address] Scott 3.430.2.7 Hospit a .3.808919 l .8 2022-04-18 2022-04-18 Telephone Jeff, 1.2.840.1 692335296 2100 630084 Methodi 00:00:00 00:00:00 Medhat Miner 41839.1.[address] 3.430.2.7 Hospit a .3.750678 l .8 2022-04-18 2022-04-18 Orders Miguel, 1.2.840.1 383477971 2099532 Methodi 00:00:00 00:00:00 Only Reed 94445.1.[address] Scott 3.430.2.7 Hospit a .3.774956 l .8 2022-04-18 2022-04-18 Telephone Jeff, 1.2.840.1 547539155 2099524 Methodi 00:00:00 00:00:00 Medhat Miner [address] 3.430.2.7 Hospit a .3.090639 l .8 2022-04-17 2022-04-17 Telemedici Saint 1.2.840.1 253329145 452 0111641 Methodi 08:30:00 09:55:17 ne Dre, 06153.1.[address] [place] B. 3.430.2.7 Hospi ta .3.058198 l .8 2022-04-17 2022-04-17 Telemedici Saint 1.2.840.1 [id number] 911 2092307 Methodi 08:30:00 09:55:17 ne Dre, 13028.1.[address] [place] B. 3.430.2.7 Hospi ta .3.899390 l .8 2022-04-17 2022-04-17 Travel 1.2.840.1 1.2.738.748 1079 521062 Methodi 00:00:00 00:00:[address] 3.430.2.7 0.2.7.3.698 Ho spita .3.750938 084.8 l .8 2022-04-17 2022-04-17 Travel 1.2.840.1 1.2.905.792 0609 055609 Methodi 00:00:00 00:00:[address] 3.430.2.7 0.2.7.3.698 Ho spita .3.268731 084.8 l .8 2022-04-15 2022-04-15 Refill Saint 1.2.840.1 622352034 338495 1452 Methodi 00:00:00 00:00:00 Der, 02668.1.[address] [place] B. 3.430.2.7 Hospi ta .3.793901 l .8 2022-04-15 2022-04-15 Refill Saint 1.2.840.1 339126381 622195 8222 Methodi 00:00:00 00:00:00 Dre, 65045.1.[address] [place] B. 3.430.2.7 Hospi ta .3.267492 l .8 2022-04-09 2022-04-09 Orders Null, 1.2.840.1 396137076 845352 2652 Methodi 00:00:00 00:00:00 Only Janet 34375.1.[address] 3.430.2.7 Hospit a .3.397449 l .8 2022-04-09 2022-04-09 Orders Null, 1.2.840.1 864159623 712568 0569 Methodi 00:00:00 00:00:00 Only Janet 88802.1.[address] 3.430.2.7 Hospit a .3.457454 l .8 2022-03-20 2022-03-20 Office Jeff, 1.2.840.1 649015080 641853 5801 Methodi 09:30:00 12:18:38 Visit Medhat Miner 57787.1.[address] 3.430.2.7 Hospit a .3.336728 l .8 2022-03-20 2022-03-20 Office Jeff, 1.2.840.1 307303078 996019 6521 Methodi 09:30:00 12:18:38 Visit Medhat Miner 39445.1.[address] 3.430.2.7 Hospit a .3.053425 l .8 2022-03-20 2022-03-20 Travel 1.2.840.1 1.2.463.638 5754 178856 Methodi 00:00:00 00:00:[address] 3.430.2.7 0.2.7.3.698 Ho spita .3.235594 084.8 l .8 2022-03-20 2022-03-20 Travel 1.2.840.1 1.2.086.945 7910 701699 Methodi 00:00:00 00:00:[address] 3.430.2.7 0.2.7.3.698 Ho spita .3.286535 084.8 l .8 2022-03-06 2022-03-06 Outpatient GC_SWHAOMC_ PRIV PRIV 505 3066-20 [facility] 00:00:00 00:00:00 Black_D 594554 Medica l 2022-03-06 2022-03-06 Outpatient GC_SWHAOMC_ PRIV PRIV 505 3066-20 [facility] 00:00:00 00:00:00 Black_D 216303 Medica l 2022-02-15 2022-02-15 Telephone Jeff, 1.2.840.1 [id number] 2099 414069 Methodi 00:00:00 00:00:00 Medhat Miner [address] 3.430.2.7 Hospit a .3.181164 l .8 2022-02-15 2022-02-15 Telephone Jeff, 1.2.840.1 456564624 2099 574864 Methodi 00:00:00 00:00:00 Medhat Miner [address]17.[address] 3.430.2.7 Hospit a .3.218809 l .8 2022-02-14 2022-02-14 Orders Miguel, 1.2.840.1 649493883 2099 619769 Methodi 00:00:00 00:00:00 Only Reed 71404.1.[address] Scott 3.430.2.7 Hospit a .3.911543 l .8 2022-02-14 2022-02-14 Orders Fiebrich, 1.2.840.1 [id number] 2099 585735 Methodi 00:00:00 00:00:00 Only Reed 70374.1.[address] Scott 3.430.2.7 Hospit a .3.180700 l .8 2022-02-14 2022-02-14 Orders Fiebrich, 1.2.840.1 [id number] 2099 138975 Methodi 00:00:00 00:00:00 Only Reed 68409.1.[address] Scott 3.430.2.7 Hospit a .3.071157 l .8 2022-02-14 2022-02-14 Orders Fiebrich, 1.2.840.1 [id number] 2099 878652 Methodi 00:00:00 00:00:00 Only Reed 01277.1.[address] Scott 3.430.2.7 Hospit a .3.757239 l .8 2022-02-11 2022-02-11 Telephone Jeff, 1.2.840.1 [id number] 2099 824108 Methodi 00:00:00 00:00:[address] Medhat [address]er [address] 3.430.2.7 Hospit a .3.362994 l .8 2022-02-11 2022-02-11 Telephone Hatter, 1.2.840.1 [id number] 2099 576826 Methodi 00:00:00 00:00:[address] 3.430.2.7 Hospit a .3.426442 l .8 2022-02-11 2022-02-11 Telephone Jeff, 1.2.840.1 [id number] 2099 055037 Methodi 00:00:00 00:00:00 Medhat Kristofer [address] 3.430.2.7 Hospit a .3.053296 l .8 2022-02-11 2022-02-11 Telephone Hatter, 1.2.840.1 [id number] 2099 780394 Methodi 00:00:00 00:00:[address] 3.430.2.7 Hospit a .3.616844 l .8 2022-02-08 2022-02-08 Orders Miguel, 1.2.840.1 [id number] 2100 730297 Methodi 00:00:00 00:00:00 Only Reed 47525.1.[address] Scott 3.430.2.7 Hospit a .3.076669 l .8 2022-02-08 2022-02-08 Orders Miguel, 1.2.840.1 [id number] 2099 566431 Methodi 00:00:00 00:00:00 Only Reed 85897.1.[address] Scott 3.430.2.7 Hospit a .3.789560 l .8 2022-02-06 2022-02-06 Office Jeff 1.2.840.1 [id number] 433723 8373 Methodi 09:15:00 11:27:22 Visit Medhat Miner 51519.1.[address] 3.430.2.7 Hospit a .3.253259 l .8 2022-02-06 2022-02-06 [facility] [id number] [address] [place] [address] 00:00:00 00:00:00 MEDHAT 464 Method i 2022-02-06 2022-02-06 [facility] [id number] [address] [place] [address] 00:00:00 00:00:00 MEDHAT [address] 2022-02-06 2022-02-06 Orders Ashley Shen 1.2.840.1 [id number] 21 [id number] Methodi 00:00:00 00:00:00 Only L [address]679.1.[address] 3.430.2.7 Hospit a .3.535048 l .8 2022-01-25 2022-01-25 Telemedici Saint 1.2.840.1 [id number] 588 [id number] Methodi 08:20:00 08:40:00 silvana Erickson 92645.1.[address] Melchor B. 3.430.2.7 Hospi ta .3.945217 l .8 2022-01-25 2022-01-25 Travel 1.2.840.1 1.2.382.616 1874 232252 Methodi 00:00:00 00:00:[address] 3.430.2.7 0.2.7.3.698 Ho spita .3.560287 084.8 l .8 2022-01-15 2022-01-16 Hospital [facility], 1.2.840.1 [id number] 75740 71049 Methodi 09:31:00 14:02:00 Encounter Medhat Miner 06586.1.[address] 3.430.2.7 Hospit a .3.571199 l .8 2022-01-15 2022-01-15 Surgery [place], 1.2.840.1 [id number] 981258 5532 Methodi 15:05:00 17:35:00 Med[address]r [address]505.1.[address] 3.430.2.7 Hospit a .3.318176 l .8 2022-01-15 2022-01-15 Anesthesia Connie Farfan 1.2.840.1 [id number] Methodi 11:59:00 13:42:00 Event Malou [place] 81787.1.[address] 3.430.2.7 Hospit a .3.911348 l .8 2022-01-15 2022-01-15 Travel 1.2.840.1 1.2.035.989 5366 090065 Methodi 00:00:00 00:00:[address] 3.430.2.7 0.2.7.3.698 Ho spita .3.051444 084.8 l .8 2022-01-08 2022-01-08 Ashley Smith 1.2.840.1 [id number] Methodi 00:00:00 00:00:00 Only L [address]96.1.[address] 3.430.2.7 Hospit a .3.226539 l .8 2022-01-03 2022-01-03 Arslan Rivera 1.2.840.1 438950000 2099000 Methodi 10:00:00 12:37:22 Visit Reed 66565.1.[address] Scott 3.430.2.7 Hospit a .3.213449 l .8 2022-01-03 2022-01-03 Pre-Admiss Medhat Aguilar 1.2.840.1 7319371 [id number] Methodi 08:20:00 09:20:00 Malou Celaya 90669.1.[address] Testing 3.430.2.7 Hospit a .3.937685 l .8 2022-01-03 2022-01-03 Travel 1.2.840.1 1.2.747.914 4688 350180 Methodi 00:00:00 00:00:[address] 3.430.2.7 0.2.7.3.698 Ho spita .3.488693 084.8 l .8 2022-01-02 2022-01-02 Gladys Rivera, 1.2.840.1 [id number] 2099 242444 Methodi 00:00:00 00:00:00 Only Reed 40418.1.[address] Scott 3.430.2.7 Hospit a .3.716373 l .8 2021-12-27 2021-12-27 Travel 1.2.840.1 1.2.872.452 5384 452618 Methodi 00:00:00 00:00:[address] 3.430.2.7 0.2.7.3.698 Ho spita .3.892136 084.8 l .8 2021-12-25 2021-12-25 Telephone Stiles, 1.2.840.1 [id number] 21 [id number] Methodi 00:00:00 00:00:00 Benjamin RaviClaribel 88517.1.[address] 3.430.2.7 Hospit a .3.971306 l .8 2021-12-13 2021-12-13 Refill Stiles, 1.2.840.1 [id number] 2100 985872 Methodi 00:00:00 00:00:00 Benjamin Alamo 08094.1.[address] 3.430.2.7 Hospit a .3.121186 l .8 2021-11-16 2021-11-16 Telephone Stiles, 1.2.840.1 [id number] 21 [id number] Methodi 00:00:00 00:00:[address] 3.430.2.7 Hospit a .3.104424 l .8 2021-11-09 2021-11-09 Office Stiles, 1.2.840.1 [id number] 2099 205064 Methodi 11:20:00 13:18:49 Visit Benjamin Nicole50.1.[address] 3.430.2.7 Hospit a .3.874737 l .8 2021-11-09 2021-11-09 Travel 1.2.840.1 1.2.078.142 8850 310733 Methodi 00:00:00 00:00:[address] 3.430.2.7 0.2.7.3.698 Ho spita .3.319616 084.8 l .8 2021-10-30 2021-10-30 Telephone Stiles, 1.2.840.1 [id number] 21 [id number] Methodi 00:00:00 00:00:[address] Benjamin Alamo 16950.1.[address] 3.430.2.7 Hospit a .3.414686 l .8 2021-10-19 2021-10-19 Office Saint 1.2.840.1 [id number] 827086 5435 Methodi 09:00:00 10:27:53 Visit Corey Erickson50.1.[address] Melchor B. 3.430.2.7 Hospi ta .3.469639 l .8 2021-10-19 2021-10-19 Travel 1.2.840.1 1.2.961.699 1760 663162 Methodi 00:00:00 00:00:[address] 3.430.2.7 0.2.7.3.698 spita .3.624215 084.8 l .8 2021-10-18 2021-10-18 Telephone Sanket, 1.2.840.1 [id number] 2100 [id number] Methodi 00:00:00 00:00:[address] 3.430.2.7 Hospit a .3.340181 l .8 2021-10-12 2021-10-12 Outpatient JOSEY, [facility] [id number] [address] [place] 00:00:00 00:00:00 ELENITA 689 Method i 2021-10-12 2021-10-12 Outpatient JOSEY, [facility] [id number] 782 [place] 00:00:00 00:00:00 ELENITA 700 Method i 2021-08-15 2021-08-15 Outpatient JEFF, [facility] [id number] [address] [place] 00:00:00 00:00:00 MEDHAT 068 Method i 2021-08-15 2021-08-15 Outpatient JEFF, [facility] [id number] [address] [place] 00:00:00 00:00:00 MEDHAT 060 Method i 2021-08-15 2021-08-15 Outpatient JEFF, [facility] [id number] [address] [place] 00:00:00 00:00:00 MEDHAT 101 Method i 2021-08-15 2021-08-15 Outpatient JEFF [facility] [id number] [address] [place] 00:00:00 00:00:00 MEDHAT 380 Method i 2021-07-13 2021-07-13 Outpatient [facility] [id number] [address] [place] 00:00:00 00:00:00 DRE, 370 Method i MELCHOR 2021-07-13 2021-07-13 Outpatient [facility] [id number] [address] [place] 00:00:00 00:00:00 DRE, 653 Method i MELCHOR 2021-07-06 2021-07-06 Outpatient STILES, [facility] [id number] 70[address] [place] 00:00:00 00:00:00 BENJAMIN 543 Method i 2021-04-10 2021-04-11 Outpatient [facility] [id number] [address] [place] 00:00:00 00:00:00 DRE [address] 2021-03-22 2021-03-22 Outpatient GC_[facility]_ PRIV PRIV 505 3066-20 [facility] 00:00:00 00:00:00 Black_D [id number] Medica l 2021-03-22 2021-03-22 Outpatient Black, Anali PRIV PRIV 3d6 [id number] 00:00:00 00:00:00 Christo [id number] 97ffbb 2021-03-22 2021-03-22 Anali PRIV [facility] [id number] [facility] 00:00:00 00:00:00 Christo [facility] Medic vt MD Jamar: GC_SWHAOMC_ [address] [facility], [place] [address] , Ph. 2021-03-21 2021-03-21 Outpatient GC_SWHAOM[facility]_ PRIV PRIV 505 3066-20 [facility] 11:29:00 11:29:00 Black_D 640068 Medica l 2021-01-17 2021-01-17 Outpatient STILES, [facility] [id number] [place] 00:00:00 00:00:00 BENJAMIN 95Rick Method i 2021-01-17 2021-01-17 Outpatient STILES, [facility] [id number] 20216 [place] 00:00:00 00:00:00 BENJAMIN 978 Method i 2021-01-05 2021-01-05 [facility] [id number] [address] [place] 00:00:00 00:00:00 Fercho ERICKSON Method i [facility] 2020-12-08 2020-12-08 Outpatient STILES, [facility] [id number] 88913 [place] 00:00:00 00:00:00 BENJAMIN 58Adonay Method i 2020-09-22 2020-09-22 [facility] [id number] [address] [place] 00:00:00 00:00:00 Clark ERICKSON Method i [facility] 2020-07-03 2020-07-03 Outpatient STILES, [facility] [id number] 13783 [place] 00:00:00 00:00:00 BENJAMIN [address] 2020-06-16 2020-06-16 Outpatient [facility] [id number] [address] [place] 00:00:00 00:00:00 DRE [address] 2020-03-29 2020-03-29 Outpatient [facility] [id number] [address] [place] 00:00:00 00:00:00 DRE [address] 2020-03-22 2020-03-22 Outpatient [facility] [id number] [address] [place] 00:00:00 00:00:00 DRE [address] 2019-12-27 2019-12-27 Outpatient [facility] [id number] [address] [place] 00:00:00 00:00:[address] 2019-10-29 2019-10-29 Outpatient STILES, [facility] [id number] 75573 [place] 00:00:00 00:00:00 BENJAMIN [address] 2019-10-13 2019-10-13 Outpatient LIANET, [facility] [id number] [address] [place] 00:00:00 00:00:00 JAWAIRIA [address] Results Test Description Test Time Test Comments Results Result [facility] e Comments - XR FLUORO FOR 2022-12-04 SPINE INJ 16:38:00 [facility] 1955 Sex: F Patient Name: AYE GAXIOLA Unit No: [id number] EXAMS: CPT CODE: [id number] XR FLUORO FOR SPINE INJ 42818 LUMBAR FACET INJECTION DIAGNOSTIC PREOPERATIVE DIAGNOSIS: Lumbar spondylosis without myelopathy or radiculopathy POSTOPERATIVE DIAGNOSIS: Lumbar spondylosis without myelopathy or radiculopathy PROCEDURE PERFORMED: Fluoroscopically guided needle localization of the bilateral L4-5 and L5-S1 facets with arthrograms and diagnostic injection of local anesthetic and steroid. FINDINGS: ... Preinjection VAS 8/10. Postinjection VAS 0/10. Steroid response pending follow-up. ESTIMATED BLOOD LOSS: Minimal ANESTHESIA: TIVA COMPLICATIONS: None DETAILS OF PROCEDURE: After obtaining stable vital signs, informed consent and IV access patient was taken to the fluoroscopy suite where the patient was placed in a prone position with all extremities padded and appropriate monitors placed. The patient was sterilely prepped prepped and draped over the lumbosacral spine. Using fluoroscopic visualization, the insertion sites were marked for a paravertebral approach to each joint. Using standard technique, a 26 -gauge needle was inserted into each joint capsule without paresthesias. At all levels, aspiration was negative for clear serous fluid. Isovue-300 contrast 0.2 mL was injected to produce each arthrogram. There were no signs of intravascular or intrathecal uptake. Bupivicaine 0.75% 0.25 mL with Lidocaine 4% 0.25 ml and triamcinolone 16 mg was then injected incrementally into each joint. There were no signs of intravascular or intrathecal uptake. The patient's vital signs remained stable. All needles were removed and the patient was taken to the PACU in good condition. Image: Image 1 Image: Image 2 at 1638 Reported and signed by: NICK GALLAGHER MD CC: Jg Bernard MD Technologist: DEANNA SHAH ARRT Transcribed D/ (7361) Alisia.[facility] NAME: AYE GAXIOLA [address] [facility] PHYS: Jg Rome MD [place], [place] [address] : 1955 AGE: 67 SEX: F LOC: LAZ PHONE #: [phone] EXAM DATE: 11/29/2022 STATUS: [facility] FAX #: [phone] RAD #: D/C DT PAGE 1 Signed Report Patient Name: AYE GAXIOLA Unit No: [id number] EXAMS: CPT CODE: [id number] XR FLUORO FOR SPINE INJ 00272 (Continued) Orig Print D/T: S: 12/04/2022 (1642) [place] [facility] NAME: AYE GAXIOLA [address] [facility] PHYS: Jg Rome MD [place], [place] [address] : 1955 AGE: 67 SEX: F LOC: LopezFLORECITA PHONE #: [phone] EXAM DATE: 11/29/2022 STATUS: [facility] FAX #: [phone] RAD #: D/C DT PAGE 2 Signed Report - XR FLUORO FOR 2022-12-04 SPINE INJ 16:38:00 [facility] : 1955 Sex: F Patient Name: AYE GAXIOLA Unit No: [id number] EXAMS: CPT CODE: [id number] XR FLUORO FOR SPINE INJ 37609 LUMBAR FACET INJECTION DIAGNOSTIC PREOPERATIVE DIAGNOSIS: Lumbar spondylosis without myelopathy or radiculopathy POSTOPERATIVE DIAGNOSIS: Lumbar spondylosis without myelopathy or radiculopathy PROCEDURE PERFORMED: Fluoroscopically guided needle localization of the bilateral L4-5 and L5-S1 facets with arthrograms and diagnostic injection of local anesthetic and steroid. FINDINGS: ... Preinjection VAS 8/10. Postinjection VAS 0/10. Steroid response pending follow-up. ESTIMATED BLOOD LOSS: Minimal ANESTHESIA: TIVA COMPLICATIONS: None DETAILS OF PROCEDURE: After obtaining stable vital signs, informed consent and IV access patient was taken to the fluoroscopy suite where the patient was placed in a prone position with all extremities padded and appropriate monitors placed. The patient was sterilely prepped prepped and draped over the lumbosacral spine. Using fluoroscopic visualization, the insertion sites were marked for a paravertebral approach to each joint. Using standard technique, a 26 -gauge needle was inserted into each joint capsule without paresthesias. At all levels, aspiration was negative for clear serous fluid. Isovue-300 contrast 0.2 mL was injected to produce each arthrogram. There were no signs of intravascular or intrathecal uptake. Bupivicaine 0.75% 0.25 mL with Lidocaine 4% 0.25 ml and triamcinolone 16 mg was then injected incrementally into each joint. There were no signs of intravascular or intrathecal uptake. The patient's vital signs remained stable. All needles were removed and the patient was taken to the PACU in good condition. Image: Image 1 Image: Image 2 at 1638 Reported and signed by: NICK GALLAGHER MD CC: Jg Bernard MD Technologist: DEANNA SHAH ARRT Transcribed D/ (3048) [facility] NAME: AYE GAXIOLA [address] [facility] PHYS: Jg Rome MD [place], [place] [address] : 1955 AGE: 67 SEX: F LOC: LopezFLORECITA PHONE #: [phone] EXAM DATE: 11/29/2022 STATUS: [facility] FAX #: [phone] RAD #: D/C DT PAGE 1 Signed Report Patient Name: AYE GAXIOLA Unit No: [id number] EXAMS: CPT CODE: [id number] XR FLUORO FOR SPINE INJ 02975 (Continued) Orig Print D/T: S: 12/04/2022 (1642) [facility] NAME: AYE GAXIOLA [address] [facility] PHYS: Jg Rome MD [place], [place] [address] : 1955 AGE: 67 SEX: F LOC: LopezFLORECITA PHONE #: [phone] EXAM DATE: 11/29/2022 STATUS: [facility] FAX #: [phone] RAD #: D/C DT PAGE 2 Signed Report GLUBED 2022-11-29 14:01:00 Test Item Value Reference Range Interpretation Comme nts GLUBED (test code = GLUBED) 119 mg/dL 60-125 N [id number] 09:10:00 Test Item Value Reference Range Interpretation Comments GLUBED (test code = GLUBED) 99 mg/dL 60-125 N POC [id number] 21:21:00 Test Item Value Reference Range Interpretation Comments POC glucose (test code 107 mg/dL 65-99 H Opera tor Name: = 40558-2) Derrell PhillipsDomitila alcala ID: [id number] able: [facility] Notified RNChartable: No Action Needed Lab Interpretation Abnormal (test code = 65290-8) [facility] [id number] 21:21:00 Test Item Value Reference Range Interpretation Comments POC glucose (test code 107 mg/dL 65-99 H Opera tor Name: = 74496-4) Derrell Essie alcala ID: [id number] able: [facility] Notified RNChartable: No Action Needed Lab Interpretation Abnormal (test code = 89167-9) [facility] [id number] 17:58:01 Test Item Value Reference Range Interpretation Comments POC sodium (test code = 141 mmol/L 240-360 5018-0) POC potassium (test 3.8 mmol/L 3.5-5.0 code = 6298-4) POC chloride (test code 108 mmol/L 99-109 = 2069-3) POC CO2 (test code = 24 mmol/L 65-8) POC glucose (test code 104 mg/dL 65-99 H = 2339-0) POC BUN (test code = 20 mg/dL 8- 6299-2) POC creatinine (test 0.7 mg/dl 0.5-0.9 code = 00647-2) POC hematocrit (test 33 % 37-47 L code = 4544-3) POC anion gap (test 14 mmol/L 8-20 [employer] Name: code = 3887098) Sharon Hernandez ID: [id number] Lab Interpretation Abnormal (test code = 59856-1) [facility] [id number] 17:58:01 Test Item Value Reference Range Interpretation Comments POC sodium (test code = 141 mmol/L 036-287 5578-0) POC potassium (test 3.8 mmol/L 3.5-5.0 code = 6298-4) POC chloride (test code 108 mmol/L 99-109 = 2069-3) POC CO2 (test code = 24 mmol/L 24-31 81597-0) POC glucose (test code 104 mg/dL 65-99 H = 2339-0) POC BUN (test code = 20 mg/dL 8-24 6299-2) POC creatinine (test 0.7 mg/dl 0.5-0.9 code = 50361-2) POC hematocrit (test 33 % 37-47 L code = 4544-3) POC anion gap (test 14 mmol/L 11-24 [employer] Name: code = 8073127) Sharon Hernandez ID: [id number] Lab Interpretation Abnormal (test code = 09028-5) [facility] [place] [facility] [id number] 17:58:00Estimated GFR>=90mL/min/1.73 m210/31/2022 12:58 PM [facility] [id number] 17:58:00Estimated GFR>=90mL/min/1.73 m210/31/2022 12:58 PM [facility] [id number] 02:54:00 Test Item Value Reference Range Interpretation Comments Cholesterol, total 97 mg/dL <=200 (test code = 2093-3) HDL cholesterol 40 mg/dL See_Comment L [Automated (test code = 2085-9) message ] The system which generated this result transmitted reference range : > OR = 50. The reference range was not used to interpret this result as normal/abnormal . Triglycerides (test 102 mg/dL <=150 code = 2571-8) LDL cholesterol 38 mg/dL (calc) Reference ra nge: calculated (test <100 Desira ble code = 96921-3) range <100 m g/dL for primary prevention; <70 mg/dL for patients with C HD or diabetic patients with > or = 2 CHD risk factors. LDL-C is now calculated using the Cristopher calculation, which is a validated novel method providin g better accuracy than the Friedewald equation in the estimation of LDL-C. Truong S S et al. GEN. 2013;310(19): 3318-9679 (http://educati on .Atlantium .com/faq/IIO939 ) Cholesterol/HDL 2.4 See_Comment [Automated ratio (test code = message] The 9830-1) system which generated this result transmitted reference range : <5.0 (calc). Th e reference range was not used to interpret this result as normal/abnormal . Non-HDL cholesterol 57 See_Comment For juan luis ents with (test code = diabetes plus 1 29661-7) major ASCVD ris k factor, treatin g to a non-HDL-C goal of <100 mg/dL (LDL-C of <70 mg/dL) is considered a therapeutic option. [Automated message] The system which generated this result transmitted reference range : <130 mg/dL (calc). The reference range was not used to interpret this result as normal/abnormal . CALIN (test code = FASTING:YES CALIN) FASTING: YES RAC (test code = Performing RAC) Organization Information: Site ID: RGA Name: [facility] TechFrancois jose c Lab Address: [address] [place] [address] Director: Farida Becker Lab Interpretation Abnormal (test code = 57539-2) [facility] [place] [facility] [id number] 02:54:00 Test Item Value Reference Range Interpretation Comments Cholesterol, total 97 mg/dL See_Comment [Automat ed (test code = 2093-3) message ] The system which generated this result transmitted reference range : <=200. The reference range was not used to interpret this result as normal/abnormal . HDL cholesterol 40 mg/dL See_Comment L [Automated (test code = 2085-9) message ] The system which generated this result transmitted reference range : > OR = 50. The reference range was not used to interpret this result as normal/abnormal . Triglycerides (test 102 mg/dL See_Comment [Automa norris code = 2571-8) message] The system which generated this result transmitted reference range : <=150. The reference range was not used to interpret this result as normal/abnormal . LDL cholesterol 38 mg/dL (calc) Reference ra nge: calculated (test <100 Desira ble code = 54106-4) range <100 m g/dL for primary prevention; <70 mg/dL for patients with C HD or diabetic patients with > or = 2 CHD risk factors. LDL-C is now calculated using the Truong-Zita calculation, which is a validated novel method providin g better accuracy than the Friedewald equation in the estimation of LDL-C. Truong S S et al. GEN. 2013;310(19): 0052-0987 (http://educati on .Atlantium .com/faq/TXH000 ) Cholesterol/HDL 2.4 See_Comment [Automated ratio (test code = message] The 9830-1) system which generated this result transmitted reference range : <5.0 (calc). Th e reference range was not used to interpret this result as normal/abnormal . Non-HDL cholesterol 57 See_Comment For juan luis ents with (test code = diabetes plus 1 12458-9) major ASCVD ris k factor, treatin g to a non-HDL-C goal of <100 mg/dL (LDL-C of <70 mg/dL) is considered a therapeutic option. [Automated message] The system which generated this result transmitted reference range : <130 mg/dL (calc). The reference range was not used to interpret this result as normal/abnormal . CALIN (test code = FASTING:YES CALIN) FASTING: YES RAC (test code = Performing RAC) Organization Information: Site ID: RGA Name: [facility] TechBing woodall Lab Address: [address] [place] [address] Director: Farida Becker Lab Interpretation Abnormal (test code = 93564-0) [facility] [id number] 17:22:00 [facility] : 1955 Sex: F Patient Name: AYE GAXIOLA Unit No: [id number] EXAMS: CPT CODE: [id number] XR FLUORO FOR SPINE INJ 85715 LUMBAR EPIRADICULAR INJECTION PREOPERATIVE DIAGNOSIS: Lumbar Radiculitis POSTOPERATIVE DIAGNOSIS: Same as above PROCEDURES PERFORMED: Fluoroscopically guided needle localization of the left L4, L5, S1 spinal nerves with transforaminal epidurograms and epidural injection of local anesthetic and steroid. FINDINGS: Preinjection VAS 10/10. Postinjection VAS 10/10. Steroid response pending follow-up. ESTIMATED BLOOD LOSS: Minimal ANESTHESIA: TIVA COMPLICATIONS: None DETAILS OF PROCEDURE: After obtaining stable vital signs, informed consent and IV access, with no contraindications, the patient was taken to the operating room and placed in a prone position with all extremities padded and appropriate monitorsplaced. The patient was sterilely prepped and draped over the lumbosacral spine. Using fluoroscopic visualization the insertion sites were marked for paravertebral approaches and using standard technique, a 25 gauge needle was advanced to the base of each pedicle without paresthesias. Isovue-300 contrast 0.2 mL of was injected at each level incrementally with frequent negative aspirations to produce each epidurogram. There were no signs of intravascular or intrathecal uptake. Bupivicaine 0.75% 0.25 mL with lidocaine 4% 0.5 mL and Decadron 5 mg was then incrementally injected with frequent negative aspirations at each level and again there were no signs of intravascular or intrathecal uptake. The needles were removed and the patient was taken to the PACU in good condition. Image: Image 1 at 1722 Reported and signed by: NICK GALLAGHER MD CC: Jg Bernard MD Technologist: DEANNA SHAH ARRT Transcribed D/ (4002) t.SDR.[facility] NAME: AYE GAXIOLA [address] [facility] PHYS: Jg Rome MD : 1955 AGE: 67 SEX: F [place], [place] [address] LOC: UNK PHONE #: [phone] EXAM DATE: 10/18/2022 STATUS: [facility] FAX #: [phone] RAD #: D/C DT PAGE 1 Signed Report Patient Name: AYE GAXIOLA Unit No: [id number] EXAMS: CPT CODE: [id number] XR FLUORO FOR SPINE INJ 12928 (Continued) Orig Print D/T: S: 10/21/2022 (1726) [facility] NAME: AYE GAXIOLA [address] [facility] PHYS: Jg Rome MD : 1955 AGE: 67 SEX: F [place], [place] [address] LOC: UNK PHONE #: [phone] EXAM DATE: 10/18/2022 STATUS: [facility] FAX #: [phone] RAD#: D/C DT PAGE 2 Signed Report - XR FLUORO FOR SPINE [id number] 17:22:00 [facility] : 1955 Sex: F Patient Name: AYE GAXIOLA Unit No: [id number] EXAMS: CPT CODE: [id number] XR FLUORO FOR SPINE INJ 81343 LUMBAR EPIRADICULAR INJECTION PREOPERATIVE DIAGNOSIS: Lumbar Radiculitis POSTOPERATIVE DIAGNOSIS: Same as above PROCEDURES PERFORMED: Fluoroscopically guided needle localization of the left L4, L5, S1 spinal nerves with transforaminal epidurograms and epidural injection of local anesthetic and steroid. FINDINGS: Preinjection VAS 10/10. Postinjection VAS 10/10. Steroid response pending follow-up. ESTIMATED BLOOD LOSS: Minimal ANESTHESIA: TIVA COMPLICATIONS: None DETAILS OF PROCEDURE: After obtaining stable vital signs, informed consent and IV access, with no contraindications, the patient was taken to the operating room and placed in a prone position with all extremities padded and appropriate monitors placed. The patient was sterilely prepped and draped over the lumbosacral spine. Using fluoroscopicvisualization the insertion sites were marked for paravertebral approaches and using standard technique, a 25 gauge needle was advanced to the base of each pedicle without paresthesias. Isovue-300 contrast 0.2 mL of was injected at each level incrementally with frequent negative aspirations to produceeach epidurogram. There were no signs of intravascular or intrathecal uptake. Bupivicaine 0.75% 0.25mL with lidocaine 4% 0.5 mL and Decadron 5 mg was then incrementally injected with frequent negative aspirations at each level and again there were no signs of intravascular or intrathecal uptake. The needles were removed and the patient was taken to the PACU in good condition. Image: Image 1 at 1722 Reported and signed by: NICK GALLAGHER MD CC: Jg Bernard MD Technologist: DEANNA SHAH ARRT Transcribed D/ (1721) [facility] [address] [facility] PHYS: Jg Rome MD : 1955 AGE: 67 SEX: F [place], [place] [address] LOC: LAZ PHONE #: [phone] EXAM DATE: 10/18/2022 STATUS: [facility] FAX #: [phone] RAD #: D/C DT PAGE 1 Signed Report Patient N brynn: AYE GAXIOLA Unit No: [id number] EXAMS: CPT CODE: [id number] XR FLUORO FOR SPINE INJ 53225 (Continued) Orig Print D/T: S: 10/21/2022 (172) [facility] NAME: AYE GAXIOLA [address] [facility] PHYS: Jg Rome MD : 1955 AGE: 67 SEX: F [place], [place] [address] LOC: LAZ PHONE #: [phone] EXAM DATE: 10/18/2022 STATUS: [facility] FAX #: [phone] #: D/C DT PAGE 2 Signed [id number] 15:16:00 Test Item Value Reference Range Interpretation Comments GLUBED (test code = GLUBED) 95 mg/dL 60-125 N [id number] 08:08:00 Test Item Value Reference Range Interpretation Comments GLUBED (test code = GLUBED) 95 mg/dL 60-125 N ECG 12 [id number] 23:41:07 Test Item Value Reference Range Interpretation Comments Ventricular rate (test 77 code = 253) Atrial rate (test code 77 = 255) DC interval (test code 126 = 266) QRSD interval (test 88 code = 260) QT interval (test code 386 = 264) QTC interval (test code 436 = 265) P axis 1 (test code = 27 267) QRS axis 1 (test code = 67 268) T wave axis (test code 88 = 270) EKG impression (test Normal sinus code = 273) rhythm-RSR' or QR pattern in V1 suggests right [facility] delay[facility] [id number] 23:41:07 Test Item Value Reference Range Interpretation Comments Ventricular rate (test 77 code = 253) Atrial rate (test code 77 = 255) DC interval (test code 126 = 266) QRSD interval (test 88 code = 260) QT interval (test code 386 = 264) QTC interval (test code 436 = 265) P axis 1 (test code = 27 267) QRS axis 1 (test code = 67 268) T wave axis (test code 88 = 270) EKG impression (test Normal sinus code = 273) rhythm-RSR' or QR pattern in V1 suggests right ventricular conduction delay- [facility] [place] [facility] 12 [id number] 23:41:07 Test Item Value Reference Range Interpretation Comments Ventricular rate (test 77 code = 253) Atrial rate (test code 77 = 255) DC interval (test code 126 = 266) QRSD interval (test 88 code = 260) QT interval (test code 386 = 264) QTC interval (test code 436 = 265) P axis 1 (test code = 27 267) QRS axis 1 (test code = 67 268) T wave axis (test code 88 = 270) EKG impression (test Normal sinus code = 273) rhythm-RSR' or QR pattern in V1 suggests right ventricular conduction delay- [facility] [id number] 20:04:00 Test Item Value Reference Range Interpretation Comments Urine culture (test SEE COMMENT Bacteriu amirah screen code = 0962478) negative. [facility] [id number] 20:04:00 Test Item Value Reference Range Interpretation Comments Urine culture (test SEE COMMENT Bacteriu amirah screen code = 7475896) negative. [facility] [id number] 20:04:00 Test Item Value Reference Range Interpretation Comments Urine culture (test SEE COMMENT Bacteriu amirah screen code = 6400889) negative. 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 Interpretation (test Abnormal code = 96834-6) [facility] stress [id number] 09:40:09 Test Item Value Reference Range Interpretation Comments Resting HR (test code 64 = 4974727191) Resting BP (test code 152&65 = 9175118191) Peak MET Achieved 1.0 (test code = 0085664936) Protocol Name (test Lexiscan code = 3705323073) Time in Exercise 00:01:00 Phase (test code = 2533073459) Max Systolic BP (test 152 code = 2446687390) Max Diastolic BP 65 (test code = 9352691228) Max Heart Rate (test 88 code = 8031576041) Max Predicted Heart 155 Rate (test code = 8199956030) Target HR Formula (220 - Age)*100% (test code = 0983699163) Test Indication (test chest pain code = 2394619723) Arrhy During Ex (test code = 4962307354) ECG Interp Before EX (test code = 4878761026) ECG Interp During Ex (test code = 0559225612) Ex Summary Comment (test code = 4383741184) Overall HR Response to Exercise (test code = 2618373769) Overall BP Response To Exercise (test code = 7123653657) Reason for Protocol Complete Termination (test code = 1700989085) Stress Test -Waveform interpreted in Impression (test code report associated with = 8576765072) image study. No interpretation is provided as part of this Stress ECG report.- [facility] stress [id number] 09:40:09 Test Item Value Reference Range Interpretation Comments Resting HR (test code 64 = 2288384973) Resting BP (test code 152&65 = 8013753867) Peak MET Achieved 1.0 (test code = 6574695669) Protocol Name (test Lexiscan code = 1476431823) Time in Exercise 00:01:00 Phase (test code = 3925397322) Max Systolic BP (test 152 code = 1411578708) Max Diastolic BP 65 (test code = 4015847060) Max Heart Rate (test 88 code = 1614780821) Max Predicted Heart 155 Rate (test code = 0573432610) Target HR Formula (220 - Age)*100% (test code = 3693110426) Test Indication (test chest pain code = 6764236673) Arrhy During Ex (test code = 3355990203) ECG Interp Before EX (test code = 9287626528) ECG Interp During Ex (test code = 4797133039) Ex Summary Comment (test code = 1991753274) Overall HR Response to Exercise (test code = 0756715533) Overall BP Response To Exercise (test code = 8668350764) Reason for Protocol Complete Termination (test code = 9602168920) Stress Test -Waveform interpreted in Impression (test code report associated with = 2810385953) image study. No interpretation is provided as part of this Stress ECG report.- [facility] HospitalVitamin B12 [id number] 23:00:00 Test Item Value Reference Range Interpretation Comments Vitamin B12 (test 436 pg/mL 200-1100 code = 2132-9) CALIN (test code = FASTING:YES FASTING: YES CALIN) RAC (test code = Performing Organization RAC) Information: Site ID: RGA [facility]: [facility] Address: [address] [place], [place] [phone] Director: Vern Torres [facility] HospitalHemoglobin [id number] 23:00:00 Test Item Value Reference Interpretation Comments Range Hemoglobin A1C (test 7.2 See_Comment H For sukh eone without code = 4548-4) known diabete s, a hemoglobin A1cv alue of 6.5% or grea ter indicates that they may have diabet es and this should be confirmed with a follow-up test. For someone with kn own diabetes, a krystal ue <7% indicates t hat their diabetes is well controlled and a value greater than or equal t o 7% indicates suboptimal cont rol. A1c targets mauri uld be individualiz ed based on durati on of diabetes, ag e, comorbid conditions, and other considerations. Currently, no consensus exist s regarding use ofhemoglobin A1 c for diagnosis o f diabetes for children. [Automated mess age] The system [employer] generated this result transmit norris reference range : <5.7 % of total Hgb. The refere nce range was not u sed to interpret th is result as normal/abnormal . CALIN (test code = FASTING:YES CALIN) FASTING: YES RAC (test code = Performing RAC) Organization Information: Site ID: RGA [facility]: [facility] Address: [address] [place] [phone] Director: Vern Torres Lab Interpretation Abnormal (test code = 79027-9) [facility] HospitalT4, [id number] 23:00:00 Test Item Value Reference Range Interpretation Comments T4, free (test code 1.3 ng/dL 0.8-1.8 = 3024-7) CALIN (test code = FASTING:YES FASTING: YES CALIN) RAC (test code = Performing Organization RAC) Information: Site ID: AIDEE [facility]: [facility] Address: [address] [place] [phone] Director: [facility] HospitalThy[facility] stimulating [id number] 23:00:00 Test Item Value Reference Range Interpretation Comments TSH (test 0.70 See_Comment [Automated mes kesha] code = The system whic h 3016-3) generated this result transmit norris reference range : 0.40 - 4.50 mIU /L. The reference r radha was not used to interpret this result as normal/abnormal . CALIN (test FASTING:YES FASTING: code = CALIN) YES RAC (test Performing code = RAC) Organization Information: Site ID: DAVID Name: [facility] Address: [address] [place] [address] Director: [facility] HospitalVitamin D 25 hydroxy [id number] 23:00:00 Test Item Value Reference Range Interpretation Comments Vitamin D, 36 ng/mL 30-100 Vitamin D Statu s 25-hydroxy (test 25-OH Vitam in D: code = 1988-06) Deficiency: < 20 ng/mLInsufficie ncy : 20 - 29 ng/mLOptimal: > or = 30 ng/mL For 25-OH Vitamin D testing on patients on D2-supplementat ion and patients fo r whom quantitati on of D2 and D3 fractions is required, the QuestAssureD(TM )25 -OH VIT D, (D2,D3), LC/MS/ MS is recommended: order code 9288 8 (patients >2yrs).See Note 1 Note 1 For additional information, please refer to http://educatio n.Q uestDiagnostics .co m/faq/QMM022 (T his link is being provided for informational/e kristen ational purpose s only.) CALIN (test code = FASTING:YES FASTING: CALIN) YES RAC (test code = Performing RAC) Organization Information: Site ID: AIDEE Name: [facility] Address: [address] [place] [phone] Director: Vern Torres [facility] HospitalAlbumin with creatinine and ratio, random [id number] 23:00:00 Test Item Value Reference Interpretation Comments Range Creatinine, urine 73 mg/dL 20-275 (mg/dL) (test code = 2161-8) Microalbumin, urine 8.4 mg/dL See Note: Referenc e Range: (test code = Reference Range Not 09718-9) established Microalbumin/creati 115 See_Comment H The ADA defines nine ratio (test abnormaliti es in code = 9318-7) albuminexcret ion as follows: Albumi raffaele Category Result (mcg/mg creatin ine) Normal to Mildl y increased <30Moderately increased 30-29 9 Severely increa sed > OR = 300 The AD A recommends that at least two of threespecimens collected withi n a 3-6 month perio d beabnormal befo re considering a patient to bewi thin a diagnostic category. [Auto mated message] The sy stem which generated this result transmit norris reference range : <30 mcg/mg creat. T he reference range was not used to interpret this result as normal/abnormal . CALIN (test code = FASTING:YES CALIN) FASTING: YES RAC (test code = Performing RAC) Organization Information: Site ID: RGA Name: [employer] [facility] Address: [address] [place], [place] [phone] Director: Vern Torres Lab Interpretation Abnormal (test code = 26334-7) [facility] HospitalLipid [id number] 23:00:00 Test Item Value Reference Range Interpretation Comments Cholesterol, total 110 mg/dL <=200 (test code = 2093-3) HDL cholesterol 54 mg/dL See_Comment [Automated (test code = 2085-9) message ] The system which generated this result transmitted reference range : > OR = 50. The reference range was not used to interpret this result as normal/abnormal . Triglycerides (test 102 mg/dL <=150 code = 2571-8) LDL cholesterol 37 mg/dL (calc) Reference ra nge: calculated (test <100 Desira ble code = 23356-6) range <100 m g/dL for primary prevention; <70 mg/dL for patients with C HD or diabetic patients with > or = 2 CHD risk factors. LDL-C is now calculated using the Cristopher calculation, which is a validated novel method providin g better accuracy than the Friedewald equation in the estimation of LDL-C. Truong S S et al. GEN. 2013;310(19): 4688-7595 (http://educati on .Atlantium .com/faq/OMJ320 ) Cholesterol/HDL 2.0 See_Comment [Automated ratio (test code = message] The [employer] system which generated this result transmitted reference range : <5.0 (calc). Th e reference range was not used to interpret this result as normal/abnormal . Non-HDL cholesterol 56 See_Comment For juan luis ents with (test code = diabetes plus 1 82734-8) major ASCVD ris k factor, treatin g to a non-HDL-C goal of <100 mg/dL (LDL-C of <70 mg/dL) is considered a therapeutic option. [Automated message] The system which generated this result transmitted reference range : <130 mg/dL (calc). The reference range was not used to interpret this result as normal/abnormal . CALIN (test code = FASTING:YES CALIN) FASTING: YES RAC (test code = Performing RAC) Organization Information: Site ID: [facility] Name: [facility] Address: [address] [place] [phone] Director: [facility] HospitalVitamin B12 [id number] 23:00:00 Test Item Value Reference Range Interpretation Comments Vitamin B12 (test 436 pg/mL 200-1100 code = 2132-9) CALIN (test code = FASTING:YES FASTING: YES CALIN) RAC (test code = Performing Organization RAC) Information: Site ID: [facility] Name: [facility] Address: [address] [place] [phone] Director: [facility] HospitalHemoglobin [id number] 23:00:00 Test Item Value Reference Interpretation Comments Range Hemoglobin A1C (test 7.2 See_Comment H For sukh eone without code = 4548-4) known diabete s, a hemoglobin A1cv alue of 6.5% or grea ter indicates that they may have diabet es and this should be confirmed with a follow-up test. For someone with kn own diabetes, a krystal ue <7% indicates t hat their diabetes is well controlled and a value greater than or equal t o 7% indicates suboptimal cont rol. A1c targets mauri uld be individualiz ed based on durati on of diabetes, ag e, comorbid conditions, and other considerations. Currently, no consensus exist s regarding use ofhemoglobin A1 c for diagnosis o f diabetes for children. [Automated mess age] The system [employer] generated this result transmit norris reference range : <5.7 % of total Hgb. The refere nce range was not u sed to interpret th is result as normal/abnormal . CALIN (test code = FASTING:YES CALIN) FASTING: YES RAC (test code = Performing RAC) Organization Information: Site ID: DAVIDA Name: [facility] Address: [address] [place] [address] Director: Vern Torres Lab Interpretation Abnormal (test code = 99302-6) [facility] HospitalT4, [id number] 23:00:00 Test Item Value Reference Range Interpretation Comments T4, free (test code 1.3 ng/dL 0.8-1.8 = 3024-7) CALIN (test code = FASTING:YES FASTING: YES CALIN) RAC (test code = Performing Organization RAC) Information: Site ID: AIDEE Name: [facility] Address: [address] [place] [address] Director: [place] Edwin McmahonSouthamptonParma Community [facility] HospitalThyroid stimulating [id number] 23:00:00 Test Item Value Reference Range Interpretation Comments TSH (test 0.70 See_Comment [Automated mes kesha] code = The system [employer] 3016-3) generated this result transmit norris reference range : 0.40 - 4.50 mIU /L. The reference r radha was not used to interpret this result as normal/abnormal . CALIN (test FASTING:YES FASTING: code = CALIN) YES RAC (test Performing code = RAC) Organization Information: Site ID: Breonna Name: [facility] Address: [address] [place] [address] Director: [place] Edwin McmahonSouthamptonPar[facility] HospitalVitamin D 25 hydroxy [id number] 23:00:00 Test Item Value Reference Range Interpretation Comments Vitamin D, 36 ng/mL 30-100 Vitamin D Statu s 25-hydroxy (test 25-OH Vitam in D: code = 1988-) Deficiency: < 20 ng/mLInsufficie ncy : 20 - 29 ng/mLOptimal: > or = 30 ng/mL F or 25-OH Vitamin D testing on patients on D2-supplementat ion and patients fo r whom quantitati on of D2 and D3 fractions is required, the QuestAssureD(TM )25 -OH VIT D, (D2,D3), LC/MS/ MS is recommended: order code 9288 8 (patients >2yrs).See Note 1 Note 1 For additional information, please refer to http://educatio n.Q uestDiagnostics .co m/faq/QJU944 (T his link is being provided for informational/e kristen ational purpose s only.) CALIN (test code = FASTING:YES FASTING: CALIN) YES RAC (test code = Performing RAC) Organization Information: Site ID: RGA Name: [facility] Address: [address] [place] [phone] Director: [facility] HospitalAlbumin with creatinine and ratio, random [id number] 23:00:00 Test Item Value Reference Interpretation Comments Range Creatinine, urine 73 mg/dL 20-275 (mg/dL) (test code = 2161-8) Microalbumin, urine 8.4 mg/dL See Note: Referenc e Range: (test code = Reference Range Not 18968-0) established Microalbumin/creati 115 See_Comment H The ADA defines nine ratio (test abnormaliti es in code = 9318-7) albuminexcret ion as follows: Albumi raffaele Category Resul t (mcg/mg creatin ine) Normal to Mildl y increased <30Moderately increased 30-29 9 Severely increa sed > OR = 300 The AD A recommends that at least two of threespecimens collected withi n a 3-6 month perio d beabnormal befo re considering a patient to bewi thin a diagnostic category. [Auto mated message] The sy stem which generated this result transmit norris reference range : <30 mcg/mg creat. T he reference range was not used to interpret this result as normal/abnormal . CALIN (test code = FASTING:YES CALIN) FASTING: YES RAC (test code = Performing RAC) Organization Information: Site ID: AIDEE Name: [facility] Lab Address: [address] [place] [address] Director: Vern Torres Lab Interpretation Abnormal (test code = 23792-6) [facility] HospitalVitamin B12 [id number] 23:00:00 Test Item Value Reference Range Interpretation Comments Vitamin B12 (test 436 pg/mL 200-1100 code = 2132-9) CALIN (test code = FASTING:YES FASTING: YES CALIN) RAC (test code = Performing Organization RAC) Information: Site ID: AIDEE Name: [facility] Address: [address] [place] [address] Director: Vern Torres [facility] HospitalHemoglobin [id number] 23:00:00 Test Item Value Reference Interpretation Comments Range Hemoglobin A1C (test 7.2 See_Comment H For sukh eone without code = 4548-4) known diabete s, a hemoglobin A1cv alue of 6.5% or grea ter indicates that they may have diabet es and this should be confirmed with a follow-up test. For someone with kn own diabetes, a krystal ue <7% indicates t hat their diabetes is well controlled and a value greater than or equal t o 7% indicates suboptimal cont rol. A1c targets mauri uld be individualiz ed based on durati on of diabetes, ag e, comorbid conditions, and other considerations. Currently, no consensus exist s regarding use ofhemoglobin A1 c for diagnosis o f diabetes for children. [Automated mess age] The system [employer] generated this result transmit norris reference range : <5.7 % of total Hgb. The refere nce range was not u sed to interpret th is result as normal/abnormal . CALIN (test code = FASTING:YES CALIN) FASTING: YES RAC (test code = Performing RAC) Organization Information: Site ID: AIDEE Name: [facility] Lab Address: [address] [place], [place] [id number] Director: Vern Torres Lab Interpretation Abnormal (test code = 63965-1) [facility] HospitalT4, [id number] 23:00:00 Test Item Value Reference Range Interpretation Comments T4, free (test code 1.3 ng/dL 0.8-1.8 = 3024-7) CALIN (test code = FASTING:YES FASTING: YES CALIN) RAC (test code = Performing Organization RAC) Information: Site ID: AIDEE Name: [facility] Address: [address] [place] [phone] Director: [facility] HospitalThyroid stimulating [id number] 23:00:00 Test Item Value Reference Range Interpretation Comments TSH (test 0.70 See_Comment [Automated mes kesha] code = The system whic h 3016-3) generated this result transmit norris reference range : 0.40 - 4.50 mIU /L. The reference r radha was not used to interpret this result as normal/abnormal . CALIN (test FASTING:YES FASTING: code = CALIN) YES RAC (test Performing code = RAC) Organization Information: Site ID: AIDEE Name: [facility] Address: [address] [place] [phone] Director: [facility] HospitalVitamin D 25 hydroxy [id number] 23:00:00 Test Item Value Reference Range Interpretation Comments Vitamin D, 36 ng/mL 30-100 Vitamin D Statu s 25-hydroxy (test 25-OH Vitam in D: code = 1988-06) Deficiency: < 20 ng/mLInsufficie ncy : 20 - 29 ng/mLOptimal: > or = 30 ng/mL For 25-OH Vitamin D testing on patients on D2-supplementat ion and patients fo r whom quantitati on of D2 and D3 fractions is required, the QuestAssureD(TM )25 -OH VIT D, (D2,D3), LC/MS/ MS is recommended: order code 9288 8 (patients >2yrs).See Note 1 Note 1 For additional information, please refer to http://educatio n.Q uestDiagnostics .co m/faq/SSW001 (T his link is being provided for informational/e kristen ational purpose s only.) CALIN (test code = FASTING:YES FASTING: CALIN) YES RAC (test code = Performing RAC) Organization Information: Site ID: AIDEE Name: [facility] Address: [address] [place] [address] Director: Vern Torres [facility] HospitalAlbumin with creatinine and ratio, random [id number] 23:00:00 Test Item Value Reference Interpretation Comments Range Creatinine, urine 73 mg/dL 20-275 (mg/dL) (test code = 2161-8) Microalbumin, urine 8.4 mg/dL See Note: Referenc e Range: (test code = Reference Range Not 12750-7) established Microalbumin/creati 115 See_Comment H The ADA defines nine ratio (test abnormaliti es in code = 9318-7) albuminexcret ion as follows: Albumi raffaele Category Result (mcg/mg creatin ine) Normal to Mildl y increased <30Moderately increased 30-2 99 Severely increa sed > OR = 300 The AD A recommends that at least two of threespecimens collected withi n a 3-6 month perio d beabnormal befo re considering a patient to bewi thin a diagnostic category. [Auto mated message] The sy stem which generated this result transmit norris reference range : <30 mcg/mg creat. T he reference range was not used to interpret this result as normal/abnormal . CALIN (test code = FASTING:YES CALIN) FASTING: YES RAC (test code = Performing RAC) Organization Information: Site ID: AIDEE [facility]: [facility] Address: [address] [place] [address] Director: Vern Torres Lab Interpretation Abnormal (test code = 16328-9) [facility]2023-01-05 22:29:00 Test Item Value Reference Range Interpretation Comments Iron level 65 See_Comment [Automated (test code = message] The sy stem 2498-4) which generated this result transmitted reference range : 45 - 160 mcg/dL. T he reference range was not used to interpret this result as normal/abnormal . CALIN (test code FASTING:YES FASTING: = CALIN) YES RAC (test code Performing = RAC) Organization Information: Site ID: A Name: [facility] Address: [address] [place], [place] [id number] Director: Vern Torres [facility]2023-01-05 22:29:00 Test Item Value Reference Range Interpretation Comments Iron level 65 See_Comment [Automated (test code = message] The sy stem 2498-4) which generated this result transmitted reference range : 45 - 160 mcg/dL. T he reference range was not used to interpret this result as normal/abnormal . CALIN (test code FASTING:YES FASTING: = CALIN) YES RAC (test code Performing = RAC) Organization Information: Site ID: [facility] Name: [facility] Address: [address] [place] [address] Director: Vern Torres [facility]2023-01-05 22:29:00 Test Item Value Reference Range Interpretation Comments Iron level 65 See_Comment [Automated (test code = message] The sy stem 2498-4) which generated this result transmitted reference range : 45 - 160 mcg/dL. T he reference range was not used to interpret this result as normal/abnormal . CALIN (test code FASTING:YES FASTING: = CALIN) YES RAC (test code Performing = RAC) Organization Information: Site ID: [facility] Name: [facility] Lab Address: [address] [place] [address] Director: Vern Torres [facility] [id number] 20:57:30 Test Item Value Reference Range Interpretation Comments Case number (test code = [id number]) Surgical pathology See link below for report (test code = PDF Lab Report 2255) Result status (test code This is Final Report = [id number]) [address] [id number] 20:57:30 Test Item Value Reference Range Interpretation Comments Case number (test code = [id number]) Surgical pathology See link below for report (test code = PDF Lab Report 2255) Result status (test code This is Final Report = [id number]) for [id number] [facility] HospitalWheebl[facility] [id number] 18:57:09 Test Item Value Reference Range Interpretation Comments SUPPLIER NAME (test [facility] code = 6415) SUPPLIER PHONE (test code = 6416) ORDER STATUS (test code Delivery Successful = 6417) DELIVERY NOTE (test code = 6419) REQUESTED DELIVEY DATE 01/16/2022 (test code = 6420) ITEM DESCRIPTION (test Wheeled Walker, [place] Qty: 1 code = 6423) EXPECTED DELIVERY DATE 01/16/2022 (test code = 6421) ACTUAL DELIVERY DATE 01/16/2022 (test code = 6422) [facility] HospitalWhguichosuzan ParkTcsbfp5838-75-65 18:57:09 Test Item Value Reference Range Interpretation Comments SUPPLIER NAME (test [facility] code = 6415) SUPPLIER PHONE (test code = 6416) ORDER STATUS (test code Delivery Successful = 6417) DELIVERY NOTE (test code = 6419) REQUESTED DELIVEY DATE 01/16/2022 (test code = 6420) ITEM DESCRIPTION (test Tamiko Walker, [place] Qty: 1 code = 6423) EXPECTED DELIVERY DATE 01/16/2022 (test code = 6421) ACTUAL DELIVERY DATE 01/16/2022 (test code = 6422) [facility]
[2023-02-08 19:23] LABS: Absolute Lymphocytes (CBC) 0.8 K/uL (0.7-4.9); Hematocrit 36.3 % (36.0-45.0); Lymphocytes % 22.4 % (15.3-44.8); MCV 93.6 fL (80-100); Platelets 196 thou/uL (152-406); RBC Red Blood Cell Count 3.88 M/uL (3.86-4.86)
[2023-02-08] MEDS ORDERED: KETOROLAC 30 MG/ML INJ ONE (19:30)
[2023-02-08] MEDS ORDERED: MORPHINE 4 MG/ML SYR ONE (19:30)
[2023-02-08] MEDS ORDERED: ONDANSETRON 4 MG/2 ML VIAL ONE (19:30)
[2023-02-08] MEDS ORDERED: NA CHLORIDE 0.9% 1,000 ML ONE (19:30)
[2023-02-08 19:41] LABS: Albumin 2.8 g/dL (3.4-5.0); Bilirubin Total 0.8 mg/dL (0.2-1.0); Protein, Total 5.6 g/dL (6.4-8.2)
--- NOTE | 2023-02-08 20:32 | RAD REPORT ---
EXAM DESCRIPTION: CTStone Protocol - 02/08/2023 8:09 pm CLINICAL HISTORY: right low back pain COMPARISON: Renal Ultrasound-Complete dated 01/23/2023 TECHNIQUE: CT of the abdomen and pelvis was performed. All CT scans are performed using dose optimization technique as appropriate and may include automated exposure control or mA/KV adjustment according to patient size. FINDINGS: Lower chest: Calcified right lower lobe nodule. Small pleural effusions. Coronary artery c alcifications. Liver: No acute abnormality or suspicious lesions. Biliary: No biliary ductal dilatation. Stomach: No significant focal abnormality. Duodenum: No significant focal abnormality. Pancreas: No significant abnormality. Spleen: No significant abnormality. Adrenal: No suspicious lesions. Kidney/ureter: No hydronephrosis. No renal calculi. Retroperitoneum: No retroperitoneal adenopathy. Vascular: No aneurysm. Atherosclerosis . Bowel: Normal appendix. Diverticulosis without diverticulitis .. Peritoneum: No ascites or free air. Bladder: Grossly unremarkable. Reproductive: No adnexal masses. Bones: No acute fracture. Grade 2 anterolisthesis of L4 on L5. Multilevel degenerative changes are pr esent in the spine which are advanced at L4-5 and L5-S1. Remote right-sided rib fractures. Other: Mild body wall edema. IMPRESSION: No acute intra-abdominal or pelvic finding. No urinary tract calculi. No appendicitis. M ild anasarca. Incidental findings as noted above.
[2023-02-08 21:19] LABS: Specific Gravity > 1.030 (1.005-1.030); Urine Bacteria 20-50 /HPF (<20); Urine Bilirubin NEGATIVE (Negative); Urine Blood Negative (Negative); Urine Clarity Clear (Clear); Urine Color Light-Yellow (Yellow); Urine Glucose 4+ (Over) (Negative); Urine Mucus Slight /HPF (None Seen); Urine Protein NEGATIVE (Negative); Urine RBC <5 /HPF (None Seen); Urine Urobilinogen Normal (Normal)
--- NOTE | 2023-02-08 22:19 | RAD REPORT ---
EXAM DESCRIPTION: US - Extremity Venous Uni Ltd - 02/08/2023 10:05 pm CLINICAL HISTORY: Swelling COMPARISON: None. TECHNIQUE: Real-time sonographic evaluation of the right lower extremity deep venous system was perf ormed. FINDINGS: Normal compressibility, flow augmentation, phasic flow and spontaneous flow is identified in the right lower extremity deep venous system. No intraluminal filling defects seen. Popliteal fossa cyst noted measuring 2.3 cm. IMPRESSION: No DVT in the right lower extremity.
--- NOTE | 2023-02-08 22:54 | RAD REPORT ---
EXAM DESCRIPTION: CT - Chest For Pe Angio - 02/08/2023 10:29 pm CLINICAL HISTORY: SOB COMPARISON: THORAX W CONTRAST dated 05/25/2013; Stone Protocol dated 02/08/2023 TECHNIQUE: Dynamically enhanced axial 3 mm thick images of the chest were obtained during administra tion of <100> mL Isovue 370 IV contrast. Coronal and oblique reconstruction images were generated and reviewed. Exam utilizes a protocol for optimal evaluation of pulmonary arterial tree. Maximum intensity projections 3D imaging was utilized All CT scans are performed using dose optimization technique as appropriate and may include automated exposure control or mA/KV adjustment according to patient size. FINDINGS: Chest Wall: No suspicious thyroid nodules or pathologic lymphadenopathy. Lungs: Calcified right lower lobe nodule. Mild interlobular septal thickening in lung bases. Bronchia l wall thickening. Atelectasis as result of the effusions. Pleura: Small bilateral effusions. Mediastinum/brittany: No pathologic lymphadenopathy. Pulmonary arteries/Aorta: No filling defect identified. No aortic aneurysm. Heart: No significant pericardial effusion. Cardiomegaly. Coronary artery calcifications. Upper abdomen: Reference same-day CT of the abdomen. Bones: No acute abnormality. Remote right-sided rib fractures. Sternotomy. IMPRESSION: Negative for pulmonary embolism. Small pleural effusions including anasarca. Probable mi ld pulmonary edema. No evidence of pneumonia.
[2023-02-08] MEDS ORDERED: IPRATROPIUM BROM 0.5MG/2.5ML ONE (23:32)
[2023-02-08] MEDS ORDERED: dexAMETHasone 10 MG/ML VIAL ONE (23:32)
--- NOTE | 2023-02-09 00:53 | ER ---
Nurse's Notes [facility] Name: Naomi Hdez Age: 67 yrs Sex: Female : 1955 Arrival Date: 02/08/2023 Time: 18:01 Bed 5 Private MD: Diagnosis: Lumbago with sciatica, right side;Unspecified combined systolic (congestive) and diastolic (congestive) heart failure;UTI/ Urinary tract infection, site not specified Presentation: 02/08 18:27 Chief complaint: EMS states: Low back pain that radiates to right leg x 3 days. Denies hb injury. Hx of sciatica. 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 20g LAC. Tested COVID + 10 days ago. Coronavirus screen:. Ebola Screen: No symptoms or risks identified at this time. Initial Sepsis Screen: Does the patient meet any 2 criteria? No. Patient's initial sepsis screen is negative. Does the patient have a suspected source of infection? No. Patient's initial sepsis screen is negative. Risk Assessment: Do you want to hurt yourself or someone else? Patient reports no desire to harm self or others. Onset of symptoms was February 05, 2023. 18:27 Method Of Arrival: EMS: [facility] 18:27 Acuity: COLTON 3 hb Triage Assessment: 18:29 General: Appears in no apparent distress. uncomfortable, Behavior is calm, cooperative. hb Pain: Pain currently is 10 out of 10 on a pain scale. EENT: No signs and/or symptoms were reported regarding the EENT system. Neuro: Level of Consciousness is awake, alert, obeys commands, Oriented to person, place, time, situation. Cardiovascular: Patient's skin is warm and dry. Respiratory: Respiratory effort is even, unlabored, Respiratory pattern is regular, symmetrical. GI: No signs and/or symptoms were reported involving the gastrointestinal system. : No signs and/or symptoms were reported regarding the genitourinary system. Derm: Skin is pink, warm \T\ dry. Musculoskeletal: Reports low back pain that radiates to right leg. Historical: - Allergies: 18:29 Plavix; hb - PMHx: 18:29 Rheumatoid Arthritis; Hypertension; hb - Immunization history:: Adult Immunizations up to date. - Social history:: Smoking status: Patient denies any tobacco usage or history of. Screenin:30 [facility] ED Fall Risk Assessment (Adult) Score/Fall Risk Level 0 - 2 = Low Risk hb Oriented to surroundings, Maintained a safe environment. Abuse screen: Denies threats or abuse. Denies injuries from another. Nutritional screening: No deficits noted. Tuberculosis screening: No symptoms or risk factors identified. Assessment: 18:30 General: See triage assessment.. hb 19:40 Reassessment: Patient appears in no apparent distress at this time. Patient is alert, la4 oriented x 3, equal unlabored respirations, skin warm/dry/pink. Pain: Complains of pain in right hip and right leg Pain radiates to right leg Pain currently is 10 out of 10 on a pain scale. Quality of pain is described as burning, sharp, shooting, Pain began 2-3 days ago. Is continuous. Neuro: No deficits noted. Acharya Agitation-Sedation Scale (RASS): 0 - Alert and Calm. Cardiovascular: No deficits noted. Heart tones S1 S2. Respiratory: No deficits noted. Airway is patent Breath sounds are clear bilaterally. Musculoskeletal: No deficits noted. Reports pain in right leg history of sciatica. Vital Signs: 18:27 BP 181 / 74; Pulse 63; Resp 15; Temp 98.3; Pulse Ox 96% on R/A; Weight 79.38 kg; Height hb 5 ft. 3 in. ; Pain 10/10; 19:30 BP 166 / 69; Pulse 62; Resp 20; Pulse Ox 94% on R/A; la4 20:53 BP 144 / 65; Pulse 55; Resp 18; Pulse Ox 94% on R/A; la4 21:00 BP 158 / 67; Pulse 53; Resp 18; Pulse Ox 97% on 2 lpm NC; la4 22:00 BP 161 / 68; Pulse 55; Resp 18; Pulse Ox 96% on 2 lpm NC; la4 23:00 BP 146 / 65; Pulse 55; Resp 18; Pulse Ox 97% on 2 lpm NC; Pain 10/10; la4 1105 00:00 BP 134 / 70; Pulse 56; Resp 20; Pulse Ox 96% 2 lpm ; la4 01:00 BP 148 / 55; Pulse 63; Resp 20; Pulse Ox 96% ; la4 01:02 BP 134 / 52; Pulse 64; Resp 18; Pulse Ox 95% ; la4 01:27 BP 147 / 60; Pulse 62; Resp 18; Temp 98(O); Pulse Ox 93% on R/A; Pain 7/10; la4 02/08 18:27 Body Mass Index 31.00 (79.38 kg, 160.02 cm) hb 02/08 18:27 Pain Scale: Adult hb 23:00 Pain Scale: Adult la4 01:27 Pain Scale: Adult la4 02/08 19:30 morphine given for pain. Ot c/o heaviness in chest, placed on 2LNC for Support. SPO2 la4 increased to 98% 23:00 chronic lower back pain la4 02/09 01:27 lower back pain radiating down right leg la4 Vitals: 02/08 19:30 Cardiac Rhythm Assessment Regular Sinus magnus. la4 23:00 Cardiac Rhythm Assessment Regular Sinus magnus. la4 02/09 01:00 Cardiac Rhythm Assessment Regular Sinus magnus. la4 Ken Coma Score: 02/08 19:30 Eye Response: spontaneous(4). Motor Response: obeys commands(6). Verbal Response: la4 oriented(5). Total: 15. 23:00 Eye Response: spontaneous(4). Motor Response: obeys commands(6). Verbal Response: la4 oriented(5). Total: 15. 02/09 01:00 Eye Response: spontaneous(4). Motor Response: obeys commands(6). Verbal Response: la4 oriented(5). Total: 15. 01:27 Eye Response: spontaneous(4). Motor Response: obeys commands(6). Verbal Response: la4 oriented(5). Total: 15. ED Course: 02/08 18:16 Patient arrived in ED. eb 18:16 Rambo Knox PA is PHCP. cp 18:16 Jed Levin MD is Attending Physician. cp 18:29 Triage completed. hb 18:29 Arm band placed on. hb 18:30 Patient has correct armband on for positive identification. Provided Education on: . hb 18:30 No provider procedures requiring assistance completed. hb 18:30 Inserted saline lock: 20 gauge in left antecubital area, using aseptic technique. IV is la4 patent, is intact, with good blood return, Flushed left antecubital. 19:40 Francine Biswas RN is Primary Nurse. la4 20:11 CT Stone Protocol In Process Unspecified. EDMS 22:07 US Extremity Venous Unilateral Ltd In Process Unspecified. EDMS 22:31 CT Chest For PE Angio In Process Unspecified. EDMS 02/09 00:44 ePter Tamez MD is Attending Physician. cp Administered Medications: 02/08 19:44 Drug: Decadron - Dexamethasone IVP 10 mg IVP once Route: IVP; Site: left antecubital; la4 19:44 Drug: NS 0.9% IV 500 ml IV at bolus continuous Route: IV; Rate: bolus; Site: left la4 antecubital; 19:45 Drug: TORadol - Ketorolac IVP 15 mg IVP once Route: IVP; Site: left antecubital; la4 19:45 Drug: Ondansetron IVP 4 mg IVP once; over 2 minutes Route: IVP; Site: left antecubital; la4 19:45 Drug: morphine IVP or IV 4 mg IVP once over 4 mins Route: IVP; Infused Over: 4 mins; la4 Site: left antecubital; 23:37 Drug: DuoNeb Nebulize (2.5 mg - 0.5 mg) 3 ml Nebulizer once Route: Nebulizer; la4 23:41 Not Given (Physician Discretion): norco10 mg-325 mg 1 tabs PO once cp 02/09 01:21 Drug: Furosemide IVP 40 mg IVP once; give over 2 minutes Route: IVP; Site: left la4 antecubital; 01:21 Drug: fentaNYL (PF) IVP 25 mcg IVP once Route: IVP; Site: left antecubital; la4 01:26 Drug: Macrobid PO 100 mg PO once; administer with food Route: PO; la4 Medication: 02/08 18:30 VIS not applicable for this client. hb Output: 02/09 01:00 Urine: 200ml (Voided); Total: 200ml. la4 01:02 Urine: 500ml (Voided); Total: 700ml. la4 Outcome: 00:52 Discharge ordered by . cp 02:42 Patient left the ED. rv1 Signatures: Dispatcher [employer] EDHI Rambo Knox PA PA cp Meghan Akers, PADILLA RN Diamante Silva Rebecca rv1 Francine Biswas, RN RN la4
--- NOTE | 2023-02-09 00:53 | EDPHYS ---
Physician Documentation [facility] Name: Naomi Hdez Age: 67 yrs Sex: Female : 1955 Arrival Date: 02/08/2023 Time: 18:01 Bed 5 Private MD: ED Physician Peter Tamez HPI: 02/08 22:15 This 67 yrs old Female presents to ER via EMS with complaints of Right Side cp Low Back and Leg Pain. 22:15 The patient presents with pain that is acute, with no known mechanism of injury. cp 22:15 The symptoms are located in the right buttock. The pain radiates to the right leg. cp 22:15 Onset: The symptoms/episode began/occurred 3 day(s) ago. cp 22:15 Associated signs and symptoms: Pertinent positives: weakness, Pertinent negatives: cp constipation, fever, numbness, urinary retention, urinary and/or bowel incontinence. Severity of symptoms: in the emergency department the symptoms are unchanged, despite home interventions. Historical: - Allergies: 18:29 Plavix; hb - PMHx: 18:29 Rheumatoid Arthritis; Hypertension; hb - Immunization history:: Adult Immunizations up to date. - Social history:: Smoking status: Patient denies any tobacco usage or history of. ROS: 22:20 Constitutional: Negative for body aches, chills, fever, poor PO intake, cp 22:20 Eyes: Negative for injury, pain, redness, and discharge, cp 22:20 Neck: Negative for stiffness, 22:20 Cardiovascular: Negative for chest pain, edema, palpitations, 22:20 Respiratory: Negative for cough, wheezing, 22:20 Abdomen/GI: Negative for abdominal pain, vomiting, diarrhea, constipation, bowel incontinence, 22:20 Back: Positive for pain at rest, pain with movement, of the right buttock, Negative for injury or acute deformity, 22:20 : Negative for difficulty urinating, bladder incontinence, 22:20 Neuro: Positive for weakness, Negative for altered mental status, dizziness, headache, 22:20 All other systems are negative, Exam: 22:25 Constitutional: The patient appears in no acute distress, alert, awake, cp non-diaphoretic, non-toxic, well developed, well nourished, in obvious pain, uncomfortable, 22:25 Head/Face: Normocephalic, atraumatic. cp 22:25 Eyes: Periorbital structures: appear normal, Conjunctiva: normal, no exudate, no cp injection, Sclera: no appreciated abnormality, Lids and lashes: appear normal, bilaterally, 22:25 ENT: External ear(s): are unremarkable, Nose: is normal, Mouth: Lips: moist, Oral mucosa: pink and intact, moist, Posterior pharynx: is normal, airway is patent, no erythema, no exudate, 22:25 Neck: ROM/movement: is normal, is supple, without pain, no range of motions cp limitations, no nuchal rigidity, 22:25 Chest/axilla: Inspection: normal, 22:25 Cardiovascular: Rate: normal, Rhythm: regular, Edema: is not appreciated, JVD: is not appreciated, 22:25 Respiratory: the patient does not display signs of respiratory distress, Respirations: normal, no use of accessory muscles, no retractions, labored breathing, is not present, Breath sounds: are clear throughout, no decreased breath sounds, no stridor, no wheezing, 22:25 Abdomen/GI: Inspection: obese Palpation: abdomen is soft and non-tender, in all quadrants, 22:25 Back: pain, that is severe, of the right buttock, ROM is painful, with all movement, 22:25 Neuro: Orientation: to person, place \T\ time. Mentation: is normal, Motor: moves all fours, Sensation: no obvious gross deficits, 23:52 ECG was reviewed by the Attending Physician. cp Vital Signs: 18:27 BP 181 / 74; Pulse 63; Resp 15; Temp 98.3; Pulse Ox 96% on R/A; Weight 79.38 kg; Height hb 5 ft. 3 in. ; Pain 10/10; 19:30 BP 166 / 69; Pulse 62; Resp 20; Pulse Ox 94% on R/A; la4 20:53 BP 144 / 65; Pulse 55; Resp 18; Pulse Ox 94% on R/A; la4 21:00 BP 158 / 67; Pulse 53; Resp 18; Pulse Ox 97% on 2 lpm NC; la4 22:00 BP 161 / 68; Pulse 55; Resp 18; Pulse Ox 96% on 2 lpm NC; la4 23:00 BP 146 / 65; Pulse 55; Resp 18; Pulse Ox 97% on 2 lpm NC; Pain 10/10; la4 02/09 00:00 BP 134 / 70; Pulse 56; Resp 20; Pulse Ox 96% 2 lpm ; la4 01:00 BP 148 / 55; Pulse 63; Resp 20; Pulse Ox 96% ; la4 01:02 BP 134 / 52; Pulse 64; Resp 18; Pulse Ox 95% ; la4 01:27 BP 147 / 60; Pulse 62; Resp 18; Temp 98(O); Pulse Ox 93% on R/A; Pain 7/10; la4 02/08 18:27 Body Mass Index 31.00 (79.38 kg, 160.02 cm) hb 02/08 18:27 Pain Scale: Adult hb 23:00 Pain Scale: Adult la4 01:27 Pain Scale: Adult la4 02/08 19:30 morphine given for pain. Ot c/o heaviness in chest, placed on 2LNC for Support. SPO2 la4 increased to 98% 23:00 chronic lower back pain la4 02/09 01:27 lower back pain radiating down right leg la4 Ken Coma Score: 02/08 19:30 Eye Response: spontaneous(4). Motor Response: obeys commands(6). Verbal Response: la4 oriented(5). Total: 15. 23:00 Eye Response: spontaneous(4). Motor Response: obeys commands(6). Verbal Response: la4 oriented(5). Total: 15. 02/09 01:00 Eye Response: spontaneous(4). Motor Response: obeys commands(6). Verbal Response: la4 oriented(5). Total: 15. 01:27 Eye Response: spontaneous(4). Motor Response: obeys commands(6). Verbal Response: la4 oriented(5). Total: 15. MDM: 02/08 18:17 Patient medically screened. cp 19:00 Differential diagnosis: Cholelithiasis chronic back pain, Pyelonephritis ruptured disc, cp spinal injury, Ureterolithiasis sciatica. 02/09 00:51 Data reviewed: vital signs, nurses notes, lab test result(s), EKG, radiologic studies, cp CT scan, plain films. 00:51 Consideration of Admission/Observation Escalation of care including cp admission/observation considered. I considered the following discharge prescriptions or medication management in the emergency department Medications were administered in the Emergency Department. See MAR. Independent interpretation of the following test(s) in the Emergency Department EKG: See my EKG interpretation above. Care significantly affected by the following chronic conditions: Hypertension. Counseling: I had a detailed discussion with the patient and/or guardian regarding the historical points, exam findings, and any diagnostic results supporting the discharge/admit diagnosis, lab results, radiology results, the need for outpatient follow up, a family practitioner, a painting instructor, to return to the emergency department if symptoms worsen or persist or if there are any questions or concerns that arise at home. Response to treatment: improved, and as a result, I will discharge patient. 02/08 18:56 Order name: CBC with Diff; Complete Time: 20:22 02/08 20:22 Interpretation: Normal except: WBC 3.60; RDW 17.2. 02/08 18:56 Order name: CMP; Complete Time: 20:22 02/08 20:22 Interpretation: Normal except: CL 110; GLUC 149; ALK 36; TP 5.6; ALB 2.8; A/G 1.0. 02/08 18:56 Order name: Lipase; Complete Time: 20:22 02/08 18:56 Order name: Urinalysis w/ reflexes; Complete Time: 21:35 02/08 21:35 Interpretation: Normal except: Urine SG > 1.030; UGLUC 4+ (Over); UNIT 2+; UBACT 20-50. 02/08 23:01 Order name: Troponin High Sensitivity; Complete Time: 00:03 02/09 00:03 Interpretation: Reviewed. 02/08 23:01 Order name: BNP; Complete Time: 00:03 02/09 00:03 Interpretation: Abnormal: NT PRO-BNP 2550. 02/08 23:01 Order name: Magnesium; Complete Time: 00:03 02/08 18:57 Order name: CT Stone Protocol; Complete Time: 21:16 02/08 21:39 Order name: US Extremity Venous Unilateral Ltd; Complete Time: 22:46 02/08 21:39 Order name: CT Chest For PE Angio; Complete Time: 22:59 02/08 23:01 Order name: EKG; Complete Time: 23:02 02/08 18:56 Order name: IV Saline Lock; Complete Time: 19:08 cp 02/08 18:56 Order name: Labs collected and sent; Complete Time: 23:37 cp 02/08 23:01 Order name: EKG - Nurse/Tech; Complete Time: 01:06 cp EC/04 23:52 Rate is 51 beats/min. Rhythm is regular. AK interval is normal. QRS interval is normal. cp QT interval is normal. T waves are Inverted in lead aVR. Interpreted by me. Reviewed by me. Administered Medications: 19:44 Drug: Decadron - Dexamethasone IVP 10 mg IVP once Route: IVP; Site: left antecubital; la4 19:44 Drug: NS 0.9% IV 500 ml IV at bolus continuous Route: IV; Rate: bolus; Site: left la4 antecubital; 19:45 Drug: TORadol - Ketorolac IVP 15 mg IVP once Route: IVP; Site: left antecubital; la4 19:45 Drug: Ondansetron IVP 4 mg IVP once; over 2 minutes Route: IVP; Site: left antecubital; la4 19:45 Drug: morphine IVP or IV 4 mg IVP once over 4 mins Route: IVP; Infused Over: 4 mins; la4 Site: left antecubital; 23:37 Drug: DuoNeb Nebulize (2.5 mg - 0.5 mg) 3 ml Nebulizer once Route: Nebulizer; la4 23:41 Not Given (Physician Discretion): norco10 mg-325 mg 1 tabs PO once cp 02/09 01:21 Drug: Furosemide IVP 40 mg IVP once; give over 2 minutes Route: IVP; Site: left la4 antecubital; 01:21 Drug: fentaNYL (PF) IVP 25 mcg IVP once Route: IVP; Site: left antecubital; la4 01:26 Drug: Macrobid PO 100 mg PO once; administer with food Route: PO; la4 Disposition: 21:13 Co-signature as Attending Physician, Peter Tamez MD I agree with the assessment sp4 and plan of care. I reviewed the patient's care provided by the Advanced Practice Provider and agree with the diagnosis and treatment plan. Disposition Summary: 02/09/23 00:52 Discharge Ordered Notes: Location: Home cp Problem: new cp Symptoms: have improved cp Condition: Stable cp Diagnosis - Lumbago with sciatica, right side cp - Unspecified combined systolic (congestive) and diastolic (congestive) heart failure cp - UTI/ Urinary tract infection, site not specified cp Followup: cp - With: Private Physician - When: 2 - 3 days - Reason: Recheck today's complaints Discharge Instructions: - Discharge Summary Sheet cp - Sciatica cp - Urinary Tract Infection, Adult cp - Back Exercises cp Forms: - Medication Reconciliation Form cp - Thank You Letter cp - Antibiotic Education cp - Prescription Opioid Use cp - Patient Portal Instructions cp - Leadership Thank You Letter cp Prescriptions: - Medrol (Brad) 4 mg Oral Tablets, Dose Pack - take 1 tablet ORAL route as directed - follow package instructions; 1 packet; cp Refills: 0, Product Selection Permitted - Macrobid 100 mg Oral Capsule - take 1 capsule ORAL route every 12 hours for 7 days; 14 capsule; Refills: 0, cp Product Selection Permitted - methocarbamol 750 mg Oral tablet - take 1 tablet ORAL route 3 times per day; 30 tablet; Refills: 0, Product cp Selection Permitted Signatures: Dispatcher [employer] EDMS Rambo Knox PA PA cp Meghan Akers, RN RN Peter Tamez MD MD sp4 Francine Biswas RN RN la4 Corrections: (The following items were deleted from the chart) 02/08 20:22 20:22 Normal except: CL 110; GLUC 149; ALK 36; TP 5.6; ALB 2.8. cp cp 02/10 00:48 02/09 22:15 This 67 yrs old Female presents to ER via EMS with complaints of cp Right Side Low Back and Leg Pain. cp
[2023-02-09] MEDS ORDERED: FUROSEMIDE 20 MG/ 2ML VIAL ONE (01:22)
[2023-02-09] MEDS ORDERED: FENTANYL CITR 100 MCG/2 ML ONE (01:23)
[2023-02-09] MEDS ORDERED: NITROFURAN MACRO 100 MG CAP PO ONE (01:27)
[2023-02-09 03:03] VITALS: BP 147/60; TEMP 98; O2SAT 93
--- NOTE | 2023-02-15 14:38 | EKG ---
Test Date: 2023-02-08 Test Time: 23:45:20 Statistical Clerk: ROBERT MEASUREMENT RESULTS: Intervals: Rate: 51 AR: 126 QRSD: 96 QT: 480 QTc: 442 [place]: P: 20 AR: 126 QRS: 87 T: 62 INTERPRETIVE STATEMENTS: Sinus bradycardia Incomplete right bundle branch block Borderline ECG Compared to ECG 02/17/2018 15:38:58 Incomplete right bundle-branch block now present Right-axis deviation no longer present Electronically Signed On 02-15-23 14:19:15 STAMP PRESSER by Jon Arellano
== END 2023-02-09 02:42 | disposition home or self-care (01) ==
LOC: ER 18:01
DX: M54.41 Lumbago with sciatica, right side (principal); N39.0 Urinary tract infection, site not specified; I50.40 Unspecified combined systolic (congestive) and diastolic (congestive) heart failure; I10 Essential (primary) hypertension; Z88.8 Allergy status to other drugs, medicaments and biological substances
CPT/HCPCS: 93005; 85025; 81001; 36415; 83735; 84484; 83690; 80053; 83880; 76377; 71275; 74176; 93971; 94640; 96375; 96374; 99285; Q9967; J1940; J7644; J3010; J1100; J2405; J7030

== ENCOUNTER 2023-08-19 09:35 | Inpatient (IN) | payer BC, OTHER ==
[2023-08-19] MEDS ORDERED: POLYETHYL GLY 3350 17 GM/DOSE PO PRN (13:21)
[2023-08-19] MEDS ORDERED: ACETAMINOPHEN 500 MG TAB PO PRN (13:23)
[2023-08-19] MEDS ORDERED: CYCLOBENZAPRINE 10 MG TAB ONE (14:04)
[2023-08-19] MEDS: CYCLOBENZAPRINE 10 MG TAB PO PRN (14:10)
[2023-08-19] MEDS ORDERED: cloNIDine HCL 0.1 MG TAB PO PRN (14:31)
[2023-08-19] MEDS ORDERED: ONDANSETRON 4 MG (ODT) TAB PO PRN (14:38)
[2023-08-19] MEDS ORDERED: ALBUTEROL 2.5 MG/3 ML NEB SOL NEB PRN ×2 (14:53→15:16)
[2023-08-19] MEDS ORDERED: NITROGLYCERIN 0.4 MG/TAB SL PRN (15:22)
[2023-08-19 15:36] LABS: Specific Gravity 1.008 (1.005-1.030); Sqamous Epithelial <5 /HPF (None Seen); Urine Bacteria None Seen /HPF (<20); Urine Bilirubin NEGATIVE (Negative); Urine Blood Negative (Negative); Urine Clarity Turbid (Clear); Urine Color Colorless (Yellow); Urine Culture Reflex Order NOT NEEDED; Urine Glucose TRACE (Negative); Urine Ketones NEGATIVE (Negative); Urine Microscopic Reflex YN ORDER UMIC; Urine Nitrite NEGATIVE (Negative); Urine Protein NEGATIVE (Negative); Urine RBC <5 /HPF (None Seen); Urine Urobilinogen Normal (Normal); Urine WBC <5 /HPF (<5); Urine Yeast (Budding) Few /HPF (None Seen)
[2023-08-19] MEDS: HYDROCODONE/APAP 5/325 MG TAB PO PRN (15:52)
[2023-08-19] MEDS: MOUNJARO 7.5 MG SQ SCH (16:00)
[2023-08-19] MEDS: INSULIN REGULAR (HUMAN) 100 UNIT/ML SQ SCH (16:30)
[2023-08-19] MEDS: carvediloL 25 MG TAB PO SCH (18:00)
[2023-08-19 18:59] VITALS: BMI 27.9
[2023-08-19] MEDS: DOCUSATE NA 100 MG CAP PO SCH (20:00)
[2023-08-19] MEDS: predniSONE 20 MG TAB PO SCH (20:00)
[2023-08-19] MEDS: APIXABAN 5 MG TABLET PO SCH (20:00)
[2023-08-19] MEDS: EZETIMIBE 10 MG TAB PO SCH (21:00)
[2023-08-19] MEDS: [UNRECOGNIZED DRUG - OTHER] OPTH SCH (21:00)
[2023-08-19] MEDS: ROSUVASTATIN 10 MG TAB PO SCH (21:00)
[2023-08-19] MEDS: LATANOPROST OPTH SCH (21:00)
--- NOTE | 2023-08-20 04:05 | HP ---
Date of Admission: 08/19/2023 Time Of Service: 1 p.m. History Of Present Illness: Ms. Hdez is a 68-year-old patient with multiple medical problems includ ing hypertension, rheumatoid arthritis, and a recent probable myocardial infarction along with spinal fusion of L4 through S1 in April of this year and additional stenosis at L2-L4, who had as noted n [id number] myocardial infarction. She had a left heart catheterization with coronary angiogram an d bypass grafting evaluated. In addition for the lumbar spine, she had fusion and was managed by [facility] including steroid treatment along with physical and occupational therapy. During her co urse, she had significant edema in the lower extremities requiring diuresis, which did help her legs and now she is stably managed and evaluation by Physical and Occupational Therapy identified signific ant debility. Previously, all of this was independent with mobilization, transfers, and activities o f daily living. However, since the ND and surgery in April, she requires min to mod assist for bed mobilization, ambulation, performance of activities of daily living and needs the medical conditions addressed on a regular basis. She is therefore admitted to the inpatient rehabilitation unit for ph ysical and occupational therapy to help avoid rehospitalization and to improve towards her prior leve l of functioning, which will be independent. Past Medical History: Dyslipidemia, sleep apnea, hypertension, rheumatoid arthritis. Past Surgical History: She has had back surgery, double cardiac bypass surgery and stents placed x3, hysterectomy, right knee replacement, spinal surgery, and surgery on the big toe. Allergies: PLAVIX. Medications: Current medications are tramadol 50 mg every 4 hours as needed, Protonix daily, lidocai ne patch apply topically daily, Flexeril 10 mg 3 times daily, albuterol nebulizer 2.5 mg every 6 hour s, [place] 5/325 every 4 hours as needed. Laboratory Studies: Her blood glucose ranged from 120 to 218. White blood cell count 4.9, hemoglobi n 12.9, hematocrit 39, platelets 147. Sodium 139, potassium 3.8, glucose 128, BUN 19, creatinine 0.4 4, calcium 8.5. Family History: Noncontributory. X-ray And Imaging: Spine MRI, lumbar spine done on 08/12/2023, showed preserved lumbar lordosis with out spondylolisthesis, the sequelae of transpedicular fusion spanning at L4-S1 with interbody spacer, sequelae of left hemilaminectomy opposite to L4-5 and L5-S1. The vertebral body heights are well ma intained. Progressive disk height loss, endplate remodeling, facet spurring, Schmorl node formation noted at multiple levels. T12-L1 shows progressive height loss, broad-based posterior disk bulging m ildly effacing the ventral CSF space. There was moderate right and mild left neural foraminal narrow ing which was somewhat progressive. There was moderate bilateral neuroforaminal narrowing, worse at L2-L3. Chest x-ray done on 08/11/2023, no acute intrathoracic processes. EKG showed left arm lead r eversal, no atrial fibrillation, and there is a lateral infarct, age undetermined. Echocardiogram sh ows left ventricular ejection fraction 55% to 60%, normal wall motion, grade 1 diastolic dysfunction. Mild tricuspid and mitral regurgitation. Family History: Noncontributory. Review of Systems: She has had some edema in the lower extremities that is improved after diuresis and the chest pain is improved. Diffuse weakness in upper and lower extremity with no complaints of psychiatric issues. No dermatological issues, just some skin discoloration changes in the lower extremities bilaterally. Denies areas of skin breakdown. Current Level Of Functioning: Currently, supervision for eating, oral hygiene, moderate assistance f or toileting, showering, maximal assistance for upper body dressing, lower body dressing, and donning and doffing footwear. Moderate assistance from rolling left to right, for sit to lying and lying to sitting, transferring on a sliding board, all moderate assistance. [id number] moderate assistance from bed to chair to toilet and ambulating moderate assistance. She used a rolling walker with 35 f eet with ambulation. Physical Examination: Vital Signs: Blood pressure 136/59, pulse 86, respiratory rate 16, temperature 97.0, oxygen saturati on 92%. General: Ms. Hdez is in the room in between therapy sessions. HEENT: She is normocephalic, atraumatic. Sclerae anicteric. Oropharynx is pink and moist. Neck: Supple. Chest: Good air movement. Abdomen: Soft. Extremities: Shows some discoloration in lower extremities. Mild venous stasis changes noted and so me tingling, burning, numbness in the feet and legs to touch. She is hypersensitive to touch in the legs and feet. Rehabilitation And Medical Assessment And Plan: Ms. Hdez is a 68[facility] with impairment category 05, spinal cord dysfunction, nontraumatic. Impairment group code is 04.130, other nontraumatic spinal cord dysfunction. Etiologic diagnosis is central canal stenosis . Comorbidities are atrial fibrillation, coronary artery disease, decreased mobility, decreased phys ical functioning, diastolic congestive heart failure, diabetes mellitus, history of deep vein thrombu s, hypertension, hypokalemia, and thrombocytopenia. Also, there is coronary artery disease, status p ost coronary artery bypass grafting, [id number]-aneozpm myocardial infarction, and moderate proximal left anterior descending artery stenosis with stent in place that is now more patent and there is right M CA disease with elevated BUN and hyperglycemia. Plan: 1.She will have physical, occupational, and if need be speech therapy for 3.5 hours, 5 of 7 days. 2.Continue with anticoagulation for DVT risk reduction and stroke risk reduction. Also continue [place] 5/325 for pain, nebulizer for her pulmonary insufficiency, Flexeril for muscle spasms. She will b e on glucose sliding scale with insulin, lidocaine patch apply topically as appropriate, Protonix for GE reflux, and tramadol also for pain management. She may have Senokot for constipation, melatonin for insomnia and to help with rest at night. Comorbidities That Are Impacting Rehabilitation: She did have at one point, recent myocar dial infarction, coronary artery bypass grafting, and lumbar spinal stenosis, status post decompressi on. Those are all putting her at risk of falls and worsening pain, weakness, numbness, and infection , so those will be higher in priority for evaluating on daily basis by physicians and by the 24-hour snf staff. Rehab Specific Plan: She will have physical and occupational therapy for 3 hours a day, 5 of 7 days. Need to work on her transfers from bed to chair to toilet to shower to perform toileting and shower ing, to dress upper and lower body, to ambulate 250 feet with modified independence, propel a wheelch air 250 feet and go up and down 10 steps with modified independence. She will have daily physician evaluation and management. She will have 24 hours a day, 7 days a week snf. She will have social services coordinator evaluation and management for discharge planning, ho in equipment, and to continue physical therapy after discharge. She will have this to help reduce th e chance of readmission and worsening condition following discharge. Ms. Hdez has a good understanding of the process of admission to the inpatient rehabilitation facili ty. Now she will benefit from physical and occupational therapy along with speech therapy if need be . Furthermore, services from the Cardiology Service, Pulmonary Service, and Hospitalist Service will be sought if appropriate. Given her risk of complications from her current medical conditions and t he need for an inpatient aggressive rehabilitation, she cannot be served adequately and safely at a [facility]er level facility such as snf and is therefore admitted to the unit as appropriate for physical therapy and medical management. Barriers To Discharge: Currently, the risk of significant CHF worsening will be mitigated. She will have daily weights, appropriate diuretic use, fluid and salt limitation as needed. Length Of Stay: About 12 days. Disposition: Home with family and continued therapy. If she is doing well, it will be outpatient or potentially via Home Health. Prognosis: Good. Rehabilitation Goals: 1.Become independent with upper and lower body dressing and donning and doffing footwear for toileti ng and showering and all transfers. 2.Be independent with ambulation of 250 feet with a rolling walker. 3.Independently propel a wheelchair 250 feet. 4.Independently go up and down 10 steps with bilateral handrails. 5.Independently perform all cognitive functioning for medication management, safety awareness, and a ll physician followup as needed. 6.The above goals were reviewed with Ms. Hdez, and she and family are in agreement. By signing this document, I acknowledge I personally performed a full physical examination on Ms. Mike elliott no later than 24 hours after admission to the inpatient rehabilitation facility and determined diana t she is able to tolerate the above course of treatment at an intensive level for reasonable period o f time. A detailed individualized plan of care for her will be completed by hospital day 4 based on the preadmission screen, history and physical, and therapy evaluations. JITENDRA Voice ID: [id number]
[2023-08-20 05:06] LABS: Absolute Eosinophils 0.1 K/uL (0-0.5); Absolute Lymphocytes (CBC) 1.3 K/uL (0.7-4.9); Absolute Monocytes 0.7 K/uL (0.1-1.3); Absolute Neutrophil 2.6 K/uL (1.8-8.0); Basophils % 0.9 % (0-1.3); Eosinophils % 1.8 % (0-4.4); Hematocrit 37.4 % (36.0-45.0); Hemoglobin 12.4 g/dL (12.0-15.0); MCH 29.2 pg (27.0-35.0); MCV 88.4 fL (80-100); MPV 9.1 fL (7.6-11.3); Monocytes % 14.2 % (3.3-12.3); Neutrophils % 56.1 % (41.7-73.7); Nucleated Red Blood Cells % 0.1 % (0-0); Platelets 150 thou/uL (152-406); RBC Red Blood Cell Count 4.23 M/uL (3.86-4.86); Red Cell Distribution Width 18.2 % (12.1-15.2)
[2023-08-20 05:13] LABS: Albumin 2.1 g/dL (3.4-5.0); Anion Gap 7.1 mEq/L (5.0-15.0); Potassium 3.1 mEq/L (3.5-5.1)
[2023-08-20] MEDS: PANTOPRAZOLE 40MG TABLET PO SCH (06:54)
[2023-08-20] MEDS: LEVOTHYROXINE SOD 0.075 MG TAB PO SCH (06:54)
[2023-08-20] MEDS: LEFLUNOMIDE 20 MG PO SCH (08:00)
[2023-08-20] MEDS: FARXIGA 10 MG PO SCH ×2 (08:00→09:15)
[2023-08-20] MEDS: DULOXETINE 30 MG CAP PO SCH (08:24)
[2023-08-20] MEDS: LIDOCAINE 4% PATCH TD SCH (08:24)
[2023-08-20] MEDS: lisinopriL 5 MG TAB PO SCH (08:25)
[2023-08-20] MEDS: VITAMIN D 1000 UNIT TAB PO SCH (08:26)
[2023-08-20] MEDS: POTASSIUM CL SA 10 MEQ TAB PO SCH (08:28)
[2023-08-20] MEDS: MAGNESIUM OXIDE 400 MG TAB PO SCH (08:31)
[2023-08-20] MEDS ORDERED: BISACODYL E.C. 5 MG TAB PO PRN (10:06)
[2023-08-20] MEDS: HYDROCODONE/APAP 7.5/325 MG TAB PO PRN (12:04)
[2023-08-20] MEDS: FUROSEMIDE 20 MG TABLET PO SCH (17:09)
[2023-08-20] MEDS ORDERED: POTASSIUM 25 MEQ EFFERV TAB ONE (21:38)
[2023-08-20] MEDS: POTASSIUM 25 MEQ EFFERV TAB PO ONE (21:39)
[2023-08-20] MEDS: MELATONIN 3 MG TABLET PO PRN (21:40)
--- NOTE | 2023-08-20 22:33 | PN ---
Date of Progress Note: 08/20/2023 Time Of Service: 1:15 p.m. Subjective: Ms. Hdez is sitting in a chair at the bedside. is standing next to her. Today , she reports doing a little bit better, but still has pain in the lower back where she had surgery a nd has some muscle spasms and some radiating pain. Review of Systems: No fevers or chills. Mild myalgias, arthralgias. No rash. No psychiatric complaints that are signi ficant and no other positives on a 10-point review. Physical Examination: Vital Signs: Blood pressure 132/63, pulse of 78, respiratory rate of 17, temperature 97.2, oxygen sa turation 95% on room air. Pain level did range up to 8. She was transferring and mobilizing. HEENT: Otherwise, she is normocephalic, atraumatic. Sclerae anicteric. Oropharynx pink, moist. Neck: Supple. Chest: Clear. Extremities: Show no significant edema, cyanosis, or clubbing, and again some pain in the lower back with mobilization. Laboratory Studies: Complete blood count with differential shows white blood cell count of 4.7, hemo globin 12.4, platelets 150. Sodium 138, potassium 3.1, and she does have potassium replacement, chlo ride 105, carbon dioxide 29, BUN 12, creatinine 0.40, glucose ranged 99 to 177, calcium 8.5, magnesiu m 2.0, albumin 2.1, prealbumin is pending. Urinalysis, clarity turbid, glucose is trace, budding yea st few, otherwise unremarkable. X-ray/imaging: No new x-rays or imaging. Medications: Tylenol Extra Strength 500 mg every 6 hours as needed, [place] 7.5/325 every 4 hours as n eeded, albuterol nebulizer 2.5 mg every 6 hours as needed, Eliquis 5 mg twice daily, Coreg 25 mg twic e daily, Dulcolax 5 mg per rectum as needed for constipation, vitamin D 1000 units daily, clonidine 0 .1 mg for systolic blood pressure greater than 170 as needed, Flexeril 10 mg 3 times daily and as nee ded, Colace 100 mg twice daily, Cymbalta 30 mg daily, Zetia 10 mg at bedtime, Lasix 20 mg daily, Synt hroid 0.075 mg daily, lidocaine patch apply topically to back as needed daily, magnesium oxide 400 mg twice daily, Prinivil 5 mg daily, melatonin 3 mg at bedtime, she has nitroglycerin 0.4 mg sublingual as needed for moderate pain in the myocardial region, Zofran 4 mg every 4 hours as needed, Protonix 40 mg daily, potassium 10 mEq daily, prednisone 20 mg twice daily, Crestor 40 mg at bedtime, Ultram 5 0 mg every 4 hours as needed. Progress Made With Physical And Occupational Therapy: Today with physical therapy, she ambulated 100 feet twice with a rolling walker and contact guard assistance and verbal cues. With occupational th erapy, bilateral upper extremity exercises done. She uses a red Thera-Band 10 sets. Her was present throughout the exercise session and was able to receive family training. She is making good progress so far with physical and occupational therapy. Still has some moderate p ain in the lower back that was discussed with the patient and her and adjustment of medicatio ns will include the duloxetine. She did have significant swelling in the legs with Lyrica and gabape ntin and those are not being used. Assessment: Ms. Hdez is a 68-year-old patient in the rehabilitation unit with a T12, L1, and L2-L4 canal stenosis, status post decompression. She has decreased mobility and decreased mental functioni ng, diastolic congestive heart failure, diabetes mellitus, deep vein thrombus, on anticoagulation, th rombocytopenia, hypokalemia, hypothyroidism, and atrial fibrillation. Also, she had aem-DD-xromvyo m yocardial infarction. Plan: 1.She will continue with physical and occupational therapy for 3 hours a day, 5 of 7 days. 2.Multiple medications they are listed above were continued including for pain management with lidoc nasreen patch, [place], Tylenol. For her GE reflux, Protonix. Senokot for constipation, melatonin for in somnia. She has insulin sliding scale for glucose management, Crestor for dyslipidemia, potassium re placement on board, Nitrostat for chest pain, Lasix for fluid management, and Flexeril for muscle spa sms along with nebulizer treatment with albuterol for shortness of breath and wheezing. Comorbidities That Are Impacting Rehabilitation: Her pain in the lower back is moderate at times mor e than moderate to severe. Medications have been adjusted to assist with that. She has been on a fe ntanyl patch prior to coming to the hospital, it has been removed and she has lidocaine patch. She h as neuromodulators that are being adjusted. 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 Of cours e, she still has [place] and extra-strength Tylenol. LB/MODL Voice ID: [id number] Report ID: [id number]
[2023-08-21 00:03] LABS: Prealbumin 31.9 mg/dL (20-40)
[2023-08-21 04:53] LABS: Anion Gap 9.2 mEq/L (5.0-15.0); Potassium 4.2 mEq/L (3.5-5.1)
[2023-08-21] MEDS: LIDOCAINE 4% PATCH TD SCH (07:57)
[2023-08-21] MEDS: CRANBERRY FRUIT EXTRACT 200 MG CAP PO SCH (07:59)
[2023-08-21] MEDS ORDERED: FUROSEMIDE 20 MG TABLET PO SCH (17:00)
[2023-08-21] MEDS: FUROSEMIDE 20 MG TABLET PO SCH (17:32)
[2023-08-21] MEDS: [UNRECOGNIZED DRUG - OTHER] PO SCH (20:04)
[2023-08-21] MEDS ORDERED: [UNRECOGNIZED DRUG - OTHER] PO SCH (21:00)
--- NOTE | 2023-08-22 00:14 | PN ---
Date of Progress Note: 08/21/2023 Time Of Service: 1:10 p.m. Subjective: Ms. Hdez is sitting in a chair beside the window. Her at bedside. She does john ve the abdominal brace in place and GLENN hose to above the knee. No significant swelling in the lower extremities. Doing better in terms of pain. Review of Systems: Mild myalgias and arthralgias. No fevers or chills. No active nausea, vomiting. No other issues or complaints. Physical Examination: Vital Signs: Blood pressure 125/61, pulse 83, respiratory rate 16, temperature 97.2, oxygen saturati on 93%. General: Ms. Hdez again sitting in a chair. HEENT: Normocephalic, atraumatic, and sclerae anicteric. Oropharynx pink, moist. Neck: Supple. Chest: Clear. Extremities: No significant edema noted now. She has a GLENN hose in place and back is supported with a brace. Laboratory Studies: White blood cell count is 4.7, hemoglobin 12.4, hematocrit 37, platelets 150. S odium 139, potassium 4.2, chloride 107, carbon dioxide 27, BUN 14, creatinine 0.53, glucose 128 rangi ng up to 178, calcium 8.2. Her urine cultures did grow E. coli and it was from the and is cintron s ensitive to all antibiotics. Medications: She is on Ultram, Crestor, Deltasone, potassium, Protonix, Zofran, Nitrostat that is a sublingual for chest pain, melatonin, magnesium oxide, Prinivil, lidocaine patch, Synthroid, Zetia, d uloxetine, Colace, Flexeril, clonidine as needed 0.1 mg, Coreg, vitamin D, Eliquis 5 mg twice a day f or DVT and stroke risk reduction along with addressing her fibrillation and clot in the leg, albutero l nebulizer on board, Tylenol and Roggen also for pain. X-ray/imaging: No new x-rays or imaging. Progress Made With Physical And Occupational Therapy: Today with physical therapy, completed sit-to- stand transfers with minimum assistance. She did multiple pivot transfers with minimum assistance. It is noted that she is having a better day today as she worked with physical therapist. She complet ed 250 feet twice with contact guard to minimum assistance with a rolling walker. She mobilized a wh eelchair 250 feet with contact guard assistance. She was able to go up and down 5 steps twice with m inimum assistance. With occupational therapy, supervision for ldx-kw-[id number] transfers and going from room to toilet with rolling walker, supervision required. She did not have any significant pain as s he worked with the therapist. Ms. Hdez is making great progress with her physical and occupational therapy. Her pain is well kassandra ged. She has no significant edema in the lower extremities. Assessment: Ms. Hdez is a 68-year-old patient in rehabilitation unit with T12-L1 and L2-L4 central canal stenosis, status post decompression, CHF with significant lower extremity edema that is all res olved. She has diabetes mellitus, deep vein thrombus, on Eliquis, thrombocytopenia, hypokalemia, hyp othyroidism, atrial fibrillation, ST-segment myocardial infarction. Plan: 1.Continue with physical and occupational therapy for 3 hours a day, 5 of 7 days. 2.Her comorbid conditions which have been addressed above are managed by continuing her list of medi cations. She is of course on Eliquis for stroke and DVT risk reduction and treatment of recurrent de ep vein thrombus and atrial flutter. Comorbidities That Are Impacting Rehabilitation: She is on full-dose anticoagulation and care will b e taken to minimize any risk of injury or falls as bleeding could be extensive. She does have pain m anaged well and again edema in the lower extremities managed well with GLENN hose. She had orthostatic changes that have mitigated to the thumb and to work with rehydration and GLENN hose plus the back brace which functions effectively as an abdom inal binder. LB/MODL Voice ID: [id number] Report ID: [id number]
[2023-08-22] MEDS: LIDOCAINE 4% PATCH TD SCH ×2 (08:00→08:57)
[2023-08-22] MEDS: predniSONE 20 MG TAB PO SCH (08:29)
--- NOTE | 2023-08-22 13:36 | P.RH.PN ---
Estimated Length of Stay: 16 Expected Discharge Date: 09/03/23 Discharge Disposition Plan: Home Family Support: Yes [facility]pc Goal: Mobility, Transfers, Self Care Vital Signs: Last Vital Signs Temp 97.0 F 08/22/23 08:00 Pulse 71 08/22/23 08:33 Resp 16 08/22/23 09:29 BP 109/76 08/22/23 08:33 Pulse Ox 94 08/22/23 09:29 Laboratory: Laboratory Last Values WBC 4.70 thou/uL (4.3-10.9) 08/20/23 03:59 RBC 4.23 M/uL (3.86-4.86) 08/20/23 03:59 Hgb 12.4 g/dL (12.0-15.0) 08/20/23 03:59 Hct 37.4 % (36.0-45.0) 08/20/23 03:59 MCV 88.4 fL (80-100) 08/20/23 03:59 MCH 29.2 pg (27.0-35.0) 08/20/23 03:59 MCHC 33.0 g/dL (32.0-36.0) 08/20/23 03:59 RDW 18.2 % (12.1-15.2) H 08/20/23 03:59 Plt Count 150 thou/uL (152-406) L 08/20/23 03:59 MPV 9.1 fL (7.6-11.3) 08/20/23 03:59 Neutrophils % 56.1 % (41.7-73.7) 08/20/23 03:59 Lymphocytes % 27.0 % (15.3-44.8) 08/20/23 03:59 Monocytes % 14.2 % (3.3-12.3) H 08/20/23 03:59 Eosinophils % 1.8 % (0-4.4) 08/20/23 03:59 Basophils % 0.9 % (0-1.3) 08/20/23 03:59 Absolute Neutrophils 2.6 K/uL (1.8-8.0) 08/20/23 03:59 Absolute Lymphocytes 1.3 K/uL (0.7-4.9) 08/20/23 03:59 Absolute Monocytes 0.7 K/uL (0.1-1.3) 08/20/23 03:59 Absolute Eosinophils 0.1 K/uL (0-0.5) 08/20/23 03:59 Absolute Basophils 0.0 K/uL (0-0.5) 08/20/23 03:59 Sodium 139 mEq/L (136-145) 08/21/23 03:26 Potassium 4.2 mEq/L (3.5-5.1) D 08/21/23 03:26 Chloride 107 mEq/L (98-107) 08/21/23 03:26 Carbon Dioxide 27 mEq/L (21-32) 08/21/23 03:26 Anion Gap 9.2 mEq/L (5.0-15.0) 08/21/23 03:26 BUN 14 mg/dL (7-18) 08/21/23 03:26 Creatinine 0.53 mg/dL (0.55-1.02) L 08/21/23 03:26 Est GFR (CKD-EPI) 102 ml/min (=/>90) 08/21/23 03:26 Glucose 128 mg/dL (74-106) H 08/21/23 03:26 POC Glucose 170 mg/dL (65-120) H 08/22/23 11:42 Calcium 8.2 mg/dL (8.5-10.1) L 08/21/23 03:26 Magnesium 2.0 mg/dL (1.6-2.4) 08/20/23 03:59 Albumin 2.1 g/dL (3.4-5.0) L 08/20/23 03:59 Prealbumin 31.9 mg/dL (20-40) 08/20/23 03:59 Urine Color Cancelled 08/19/23 12:50 Urine Color Colorless (Yellow) 08/19/23 12:50 Urine Clarity Cancelled 08/19/23 12:50 Urine Clarity Turbid (Clear) H 08/19/23 12:50 Urine pH 7.0 (5.0-7.0) 08/19/23 12:50 Urine pH Cancelled 08/19/23 12:50 Ur Specific [place] 1.008 (1.005-1.030) 08/19/23 12:50 Ur Specific [place] Cancelled 08/19/23 12:50 Glucose (UA)(Auto) Cancelled 08/19/23 12:50 Glucose (UA)(Auto) Trace (Negative) H 08/19/23 12:50 Urine Ketones Cancelled 08/19/23 12:50 Urine Ketones Negative (Negative) 08/19/23 12:50 Urine Blood Cancelled 08/19/23 12:50 Urine Blood Negative (Negative) 08/19/23 12:50 Urine Nitrite Cancelled 08/19/23 12:50 Urine Nitrite Negative (Negative) 08/19/23 12:50 Urine Bilirubin Cancelled 08/19/23 12:50 Urine Bilirubin Negative (Negative) 08/19/23 12:50 Urine Urobilinogen Cancelled 08/19/23 12:50 Urine Urobilinogen Normal (Normal) 08/19/23 12:50 Ur Leukocyte Esterase Cancelled 08/19/23 12:50 Ur Leukocyte Esterase Negative [place]/uL (Negative) 08/19/23 12:50 Urine RBC <5 /HPF (None Seen) 08/19/23 12:50 Urine RBC Cancelled 08/19/23 12:50 Urine Red Cell Clumps Cancelled 08/19/23 12:50 Urine WBC <5 /HPF (<5) 08/19/23 12:50 Urine WBC Cancelled 08/19/23 12:50 Urine WBC Clumps Cancelled 08/19/23 12:50 Ur Squamous Epith Cells <5 /HPF (None Seen) 08/19/23 12:50 Ur Squamous Epith Cells Cancelled 08/19/23 12:50 U Non-Squamous Epi Cells Cancelled 08/19/23 12:50 Ur Transition Epith Cell Cancelled 08/19/23 12:50 Ur Renal Epithelial Cell Cancelled 08/19/23 12:50 Calcium Carbonate Cryst Cancelled 08/19/23 12:50 Calcium Oxalate Crystal Cancelled 08/19/23 12:50 Leucine Crystals Cancelled 08/19/23 12:50 Cystine Crystals Cancelled 08/19/23 12:50 Uric Acid Crystals Cancelled 08/19/23 12:50 Triple Phos Crystals Cancelled 08/19/23 12:50 Tyrosine Crystals Cancelled 08/19/23 12:50 Unidentified Crystals Cancelled 08/19/23 12:50 Amorphous Crystals Cancelled 08/19/23 12:50 Urine Bacteria Cancelled 08/19/23 12:50 Urine Bacteria None seen /HPF (<20) 08/19/23 12:50 Hyaline Casts Cancelled 08/19/23 12:50 Granular Casts Cancelled 08/19/23 12:50 Waxy Casts Cancelled 08/19/23 12:50 RBC Casts Cancelled 08/19/23 12:50 WBC Casts Cancelled 08/19/23 12:50 Urine Mucus Cancelled 08/19/23 12:50 Urine Trichomonas Cancelled 08/19/23 12:50 Ur Yeast w Hyphae Cancelled 08/19/23 12:50 Urine Yeast (Budding) Cancelled 08/19/23 12:50 Urine Yeast (Budding) Few /HPF (None Seen) H 08/19/23 12:50 Urine Sperm Cancelled 08/19/23 12:50 Ur Oval Fat Bodies Cancelled 08/19/23 12:50 Urine Culture Reflexed Cancelled 08/19/23 12:50 Urine Culture Reflexed Not needed 08/19/23 12:50 Urine Total Protein Cancelled 08/19/23 12:50 Urine Total Protein Negative (Negative) 08/19/23 12:50 Urine Ascorbic Acid Cancelled 08/19/23 12:50 Urine Fat Cancelled 08/19/23 12:50 Weight: 148 lb 12.8 oz Wound Present: No Closed Surgical Incision Present: No Negative Pressure Wound Therapy Present: No Physician Update: Labs reviewed and are stable. Still has pain in her back partly relieved by [place] 7.5/325 mg. Up and down 10 steps, WC 250' with CGA. Progress is good with OT. Improved lower body dressing and toileting. Comment: left buttock skin not intact Summary: Patient's care plan and [employer] goals have been reviewed and revised as necessary. Please see the Rehabilitation Signature page for all necessary signatures.
[2023-08-22] MEDS: TRAMADOL HCL 50 MG TAB PO PRN (20:50)
[2023-08-22] MEDS: BACLOFEN 10 MG TAB PO SCH (20:51)
[2023-08-24 08:15] LABS: Anion Gap 6.4 mEq/L (5.0-15.0); Potassium 3.4 mEq/L (3.5-5.1)
[2023-08-24] MEDS: BACLOFEN 10 MG TAB PO SCH (19:59)
[2023-08-25] MEDS: FUROSEMIDE 20 MG TABLET PO SCH (17:02)
--- NOTE | 2023-08-26 00:21 | PN ---
Date of Progress Note: 08/25/2023 Time Of Service: 1:20 p.m. Subjective: Ms. Hdez is sitting in a chair. at bedside. She does report some worsening ed gabriela in the lower extremities, potential about 6 to 8 pounds weight gain in about 4 days. She does john ve Lasix 10 mg daily, that will be increased to 20 mg daily and SCDs will be used at night. I's and O's measured and her daily weights recorded. Review of Systems: Again, some swelling in lower extremities despite the GLENN hose being placed, around 1+ edema in the a nkles and legs. Otherwise, mild myalgias, arthralgias. No rash. No psychiatric issues. No other p ositives on review of systems. Physical Examination: Vital Signs: Blood pressure 110/52, pulse 76, respiratory rate 18, temperature 97.2, oxygen saturati on 93%. General: Ms. Hdez is sitting in a chair. Extremities: Mild edema 1+ to 2+ in the lower extremities. Otherwise, she does not have any significant pain except in the lower back, where pain does radiate. She does have the back brace in place. There are pain patches present as well. She is on duloxetin e 30 mg daily along with a pain patch and has received [place] and muscle relaxant, baclofen. Otherwis e, her medications have been reviewed and remain unchanged. Today, blood sugars range from 104 to 25 7. No new x-rays or imaging. Progress Made With Physical And Occupational Therapy: Today, she performed standing balance activiti es with support and was unsupported doing so. She performed self weight shifting laterally as well a s anteriorly and posteriorly by holding onto the rolling walker. She ambulated 200 feet and 100 feet independently with a rolling walker. She was able to go up and down 15 stairs with bilateral handra ils and contact guard assistance. Then, she was able to ascend and descend 5 steps independently. W ith occupational therapy, independent with grooming, oral care, completed toileting with supervision, doing clothing management, was done independently. Independent with lasfim-gs-ccl transfers at the head of bed. Ms. Hdez is making great progress with physical and occupational therapy. She does have some worsen ing edema and weight gain, likely from extra fluid retention. Assessment: Ms. Hdez is a 68-year-old patient in the rehabilitation unit with T12-L1 and L2-L4 cent ral canal stenosis, status post decompression. She has CHF with fluid retention in the lower extremi ties and now has an increase in her Lasix from 10 mg daily to 20 mg daily. She has hypothyroidism, h ypokalemia, thrombocytopenia, deep vein thrombosis, on Eliquis, atrial fibrillation, again with the E liquis, ST-segment myocardial infarction, and diabetes mellitus. Plan: 1.Continue with physical, occupational, and speech therapy for 3.5 hours, 5 of 7 days. 2.She will continue with all comorbid medications and Lasix increased, daily weights, and I's and O' s monitored, SCDs at night. Comorbidities That Are Impacting Her Rehabilitation: The increased edema addressed with increasing h er Lasix. I's and O's monitored. SCDs at night and salt intake decreased. The patient did have a r equest for a arredondo with her meals. She is getting sausage. She was told about the amount of salt in take which can increase edema in the lower extremities. She is in agreement to try to minimize intak e of those types of foods. KARINE/REJI Voice ID: [id number] Report ID: [id number]
[2023-08-26] MEDS: POTASSIUM CL SA 10 MEQ TAB PO ONE (13:58)
[2023-08-26] MEDS: POTASSIUM CL SA 10 MEQ TAB PO SCH (19:38)
[2023-08-27 07:45] LABS: Albumin 2.1 g/dL (3.4-5.0); Anion Gap 3.1 mEq/L (5.0-15.0); Potassium 4.1 mEq/L (3.5-5.1); Prealbumin 32.5 mg/dL (20-40)
[2023-08-27] MEDS: [UNRECOGNIZED DRUG - OTHER] PO SCH (10:50)
--- NOTE | 2023-08-28 02:03 | PN ---
Date of Progress Note: 08/27/2023 Time Of Service: 1:15 p.m. Subjective: Ms. Hdez is doing better today. She is in the room working with the occupational thera pist. Her lower extremity swelling is slightly improved. Still has back pain where she had surgery in the lumbar region. Review of Systems: Again, mild swelling in lower extremity. No fevers, chills. No arthralgias, mild myalgias. Again, mild edema. No other complaints on the systems review. Physical Examination: Vital Signs: Blood pressure 120/60, pulse 94, respiratory rate 17, temperature 97.6, oxygen saturati on 93%. General: Ms. Hdez again is doing well. She is in no acute distress. HEENT: Normocephalic, atraumatic. Sclerae anicteric. Oropharynx pink, moist. Abdomen: She has the abdominal brace on. Extremities: She has GLENN hose above the knee on and mild edema in both lower extremities. Laboratory Studies: Sodium 144, potassium 4.1, chloride 111, carbon dioxide 34, BUN 15, creatinine 0 .44, glucose 98, ranging up to 215, calcium 8.4, albumin 2.1, prealbumin 32.5. X-ray/imaging: No new x-rays or imaging. Medications: Medications have been reviewed and remain unchanged. She does have potassium replaceme nt on board, and Lasix was adjusted as well. Progress Made With Physical And Occupational Therapy: Today with physical therapy, she completed gai t training independently with a rolling walker 250 feet. She is able to go up and down 15 steps with modified independence and holding onto bilateral handrails. Multiple gut-cr-rtpxx transfers done in dependently. Car transfers stimulated independently. With occupational therapy, worked very well wi th Thera-Band to improve her upper extremity strength and is able to go up and down stairs well. Ms. Hdez is doing very well with her physical and occupational therapy, making excellent progress. Assessment: Ms. Hdez is a 68-year-old patient in the rehabilitation unit with T12-L1 and L2-L4 cent ral canal stenosis, status post sacral compression. She has made great progress in her physical and occupational therapy. She has mild lower extremity edema addressed by Lasix and fluid management. C omorbidities of hypothyroidism, hypokalemia, thrombocytopenia, DVT, on Eliquis, atrial fibrillation, ST-segment myocardial infarction, and diabetes mellitus, are stably managed. Plan: 1.She will continue with physical and occupational therapy for 3 hours a day, 5 of 7 days. 2.All comorbid condition medications are being managed as noted including fluid management, blood garcia gars are followed and white blood cell count and degree of anemia also followed. Comorbidities That Are Continuing To Impact Rehabilitation: The mild swelling in lower extremities i s addressed by diuresis, GLENN gross, and the patient is instructed to continue doing her flexion-extens ion exercises of the foot and knee with elevation of foot while in bed. LB/MODL Voice ID: [id number] Report ID: [id number]
[2023-08-28 06:25] LABS: Absolute Eosinophils 0.1 K/uL (0-0.5); Absolute Lymphocytes (CBC) 1.7 K/uL (0.7-4.9); Absolute Monocytes 0.7 K/uL (0.1-1.3); Absolute Neutrophil 2.5 K/uL (1.8-8.0); Basophils % 0.7 % (0-1.3); Eosinophils % 1.7 % (0-4.4); Hematocrit 33.3 % (36.0-45.0); Hemoglobin 11.1 g/dL (12.0-15.0); Lymphocytes % 34.2 % (15.3-44.8); MCH 29.9 pg (27.0-35.0); MCHC 33.5 g/dL (32.0-36.0); MCV 89.3 fL (80-100); MPV 8.3 fL (7.6-11.3); Neutrophils % 49.4 % (41.7-73.7); Nucleated Red Blood Cells % 0.3 % (0-0); Platelets 226 thou/uL (152-406); RBC Red Blood Cell Count 3.72 M/uL (3.86-4.86); Red Cell Distribution Width 18.4 % (12.1-15.2)
[2023-08-28 07:43] VITALS: BP 142/65; TEMP 97.2
== END 2023-08-28 14:20 | disposition home health service (06) | DRG 948 ==
LOC: 5TH 09:35
PROVIDERS: ADMIT Psychiatry & Neurology Neurology with Special Qualifications in Child Neurology; ATTEND Psychiatry & Neurology Neurology with Special Qualifications in Child Neurology
DX: R53.81 Other malaise (principal); I50.30 Unspecified diastolic (congestive) heart failure; E78.5 Hyperlipidemia, unspecified; G47.30 Sleep apnea, unspecified; I10 Essential (primary) hypertension; M06.9 Rheumatoid arthritis, unspecified; I25.10 Atherosclerotic heart disease of native coronary artery without angina pectoris; E11.9 Type 2 diabetes mellitus without complications; E87.6 Hypokalemia; D69.6 Thrombocytopenia, unspecified; E11.65 Type 2 diabetes mellitus with hyperglycemia; K21.9 Gastro-esophageal reflux disease without esophagitis; G47.00 Insomnia, unspecified; E03.9 Hypothyroidism, unspecified; Z86.718 Personal history of other venous thrombosis and embolism; Z95.1 Presence of aortocoronary bypass graft; I25.2 Old myocardial infarction
CPT/HCPCS: 36415; 80048; 81001; 82040; 82947; 83735; 84134; 85025; 87077; 87086; 87088; 87186; 94010; 97010; 97110; 97112; 97116; 97163; 97165; 97530; 97542; J2001; J7512

== ENCOUNTER 2024-03-02 04:53 | Emergency (ER) | payer BC ==
[2024-03-02 05:51] LABS: Absolute Eosinophils 0.1 K/uL (0-0.5); Absolute Lymphocytes (CBC) 1.7 K/uL (0.7-4.9); Absolute Monocytes 0.5 K/uL (0.1-1.3); Absolute Neutrophil 0.6 K/uL (1.8-8.0); Basophils % 1.2 % (0-1.3); Eosinophils % 3.8 % (0-4.4); Hematocrit 31.9 % (36.0-45.0); Hemoglobin 10.6 g/dL (12.0-15.0); Lymphocytes % 55.7 % (15.3-44.8); MCH 28.2 pg (27.0-35.0); MCHC 33.1 g/dL (32.0-36.0); MCV 85.1 fL (80-100); Monocytes % 18.1 % (3.3-12.3); Neutrophils % 21.2 % (41.7-73.7); Nucleated Red Blood Cells % 0.4 % (0-0); Platelets 218 thou/uL (152-406); RBC Red Blood Cell Count 3.75 M/uL (3.86-4.86); Red Cell Distribution Width 19.3 % (12.1-15.2)
[2024-03-02 06:08] LABS: Albumin 2.9 g/dL (3.4-5.0); Albumin/Globulin Ratio 1.4 (1.1-1.8); Anion Gap 7.8 mEq/L (5.0-15.0); Globulin 2.1 g/dL (2.3-3.5); Potassium 3.8 mEq/L (3.5-5.1)
--- NOTE | 2024-03-02 07:43 | RAD REPORT ---
EXAMINATION: CTA RIGHT UPPER EXTREMITY CLINICAL INDICATION: CTA RUE, swelling, bruising TECHNIQUE: This examination was performed according to an angiographic protocol with 3D post-processi ng. This involves 3D reconstructions, MIPs, volume rendered images and/or shaded surface rendering. One or more of the following dose reduction techniques were used: Automated exposure control, adjustm ent of the mA and/or kV according to patient size, and/or iterative reconstruction. Unless otherwise specified, incidental findings do not require dedicated imaging follow-up. COMPARISON: 02/08/2023 CT chest FINDINGS: Moderate soft tissue swelling and subcutaneous fat stranding seen anterior upper right arm. Prominent right shoulder degenerative changes with mild joint effusion. Calcified granuloma right lung, stable. Mild cardiomegaly. No significant flow arterial abnormality seen. IMPRESSION: No significant flow abnormality detected.
--- NOTE | 2024-03-02 07:43 | RAD REPORT ---
EXAM DESCRIPTION: UPPER EXTREMITY VENOUS UNILATERAL, right CLINICAL HISTORY: 68 years Female SWELLING TECHNIQUE: Multiple grayscale sonographic images of the right arm were obtained utilizing a high-frequency linea r array transducer supplemented with color Doppler, compression and augmentation techniques. COMPARISON: None. FINDINGS: The right internal jugular, subclavian, axillary, brachial, basilic, radial, ulnar veins ar e patent, with normal compressibility and blood flow. The right cephalic vein is not diagnostically visualized. Subcutaneous edema is noted. IMPRESSION: No sonographic evidence of deep venous thrombosis. Note that the cephalic vein is not diagnostically visualized or evaluated. Electronically signed by: Jaylin Briggs MD 03/02/2024 07:34 AM [facility] Due to temporary technical issues with the PACS/[employer] reporting system, reports are being mia d by the in-house radiologist without review as a courtesy to ensure prompt reporting the interpreting radiologist is fully responsible for the content of the report. Transcribed Date/Time: 03/02/2024 7:43 AM
--- NOTE | 2024-03-02 07:44 | RAD REPORT ---
EXAM DESCRIPTION: Extremity Venous Uni Ltd CLINICAL HISTORY: 68 years Female PAIN TECHNIQUE: Multiple grayscale sonographic images of the leg were obtained utilizing a high-frequency linear arra y transducer supplemented with color Doppler, compression and augmentation techniques. COMPARISON: None. FINDINGS: Left leg veins: Common femoral, greater saphenous, femoral, popliteal and calf veins show normal compressibility, col or flow and augmentation. IMPRESSION: No sonographic evidence of deep venous thrombosis. Electronically signed by: Jaylin Briggs MD 03/02/2024 07:[address] [facility] Due to temporary technical issues with the [employer]ACS[employer] reporting system, reports are being mia d by the in-house radiologist without review as a courtesy to ensure prompt reporting the interpreting radiologist is fully responsible for the content of the report. Transcribed Date/Time: 03/02/2024 7:44 AM
--- NOTE | 2024-03-02 08:13 | ER ---
Nurse's Notes [facility] Name: Naomi Hdez Age: 68 yrs Sex: Female : 1955 Arrival Date: 03/02/2024 Time: 04:53 Bed 19 Private MD: Diagnosis: hematoma of soft tissue Presentation: 03/02 05:10 Chief complaint: Patient states: swelling of upper right arm with pain. Coronavirus kj2 screen: At this time, unable to obtain information related to travel outside the [place] Ebola Screen: No symptoms or risks identified at this time. Initial Sepsis Screen: Does the patient meet any 2 criteria? No. Patient's initial sepsis screen is negative. Does the patient have a suspected source of infection? No. Patient's initial sepsis screen is negative. Risk Assessment: Do you want to hurt yourself or someone else? Patient reports no desire to harm self or others. Onset of symptoms was February 29, 2024. 05:10 Method Of Arrival: Ambulatory kj2 05:10 Acuity: COLTON 3 kj2 Triage Assessment: 05:17 General: Appears in no apparent distress. comfortable, Behavior is calm, cooperative. kj2 Pain: Complains of pain in right upper arm. Neuro: Level of Consciousness is awake, alert, obeys commands, Oriented to person, place, time, situation. Cardiovascular: Patient's skin is warm and dry. Respiratory: Airway is patent Respiratory effort is even, unlabored. GI: No signs and/or symptoms were reported involving the gastrointestinal system. : No signs and/or symptoms were reported regarding the genitourinary system. Historical: - Allergies: 05:16 Plavix; kj2 - Home Meds: 05:16 aspirin 81 mg Oral chew [Active]; kj2 - PMHx: 05:16 Hypertension; Rheumatoid Arthritis; kj2 - Immunization history:: Adult Immunizations unknown. - Infectious Disease History:: Denies. - Social history:: Smoking status: Patient denies any tobacco usage or history of. - Family history:: not pertinent. Screenin:25 [facility] ED Fall Risk Assessment (Adult) History of falling in the last 3 months, kj2 including since admission No falls in past 3 months (0 pts) Confusion or Disorientation No (0 pts) Intoxicated or Sedated No (0 pts) Impaired Gait No (0 pts) Mobility Assist Device Used No (0 pt) Altered Elimination No (0 pt) Score/Fall Risk Level 0 - 2 = Low Risk Maintained a safe environment, Hourly rounding (assess needs \T\ fall precautionary measures) done. Abuse screen: Denies threats or abuse. Denies injuries from another. Nutritional screening: No deficits noted. Tuberculosis screening: No symptoms or risk factors identified. Assessment: 05:19 General: see triage assessment. kj2 05:50 Reassessment: Patient appears in no apparent distress at this time. Patient and/or kj2 family updated on plan of care and expected duration. Pain level reassessed. Patient is alert, oriented x 3, equal unlabored respirations, skin warm/dry/pink. 06:49 Reassessment: Patient appears in no apparent distress at this time. Patient and/or kj2 family updated on plan of care and expected duration. Pain level reassessed. 07:25 Reassessment: Patient appears in no apparent distress at this time. Patient and/or db family updated on plan of care and expected duration. Pain level reassessed. Patient is alert, oriented x 3, equal unlabored respirations, skin warm/dry/pink. PATIENT AMBULATORY TO RESTROOM. 08:55 Reassessment: Patient appears in no apparent distress at this time. Patient and/or db family updated on plan of care and expected duration. Pain level reassessed. Patient is alert, oriented x 3, equal unlabored respirations, skin warm/dry/pink. Neuro: Level of Consciousness is awake, alert, obeys commands, Oriented to person, place, time, situation. Respiratory: Airway is patent Respiratory effort is even, unlabored, Respiratory pattern is regular, symmetrical. Vital Signs: 05:10 BP 151 / 53; Pulse 62; Resp 18; Temp 97.9; Pulse Ox 100% on R/A; Weight 64.41 kg; kj2 Height 4 ft. 11 in. ; Pain 6/10; 05:50 BP 152 / 68; Pulse 70; Resp 18; Pulse Ox 97% on R/A; kj2 06:52 BP 156 / 62; Pulse 73; Resp 20; Pulse Ox 96% on R/A; kj2 07:45 BP 157 / 63; Pulse 64; Resp 16; Pulse Ox 95% on R/A; db 08:30 BP 154 / 69; Pulse 67; Resp 18; Pulse Ox 98% ; db 05:10 Body Mass Index 28.68 (64.41 kg, 149.86 cm) kj2 05:10 Pain Scale: Adult kj2 ED Course: 04:55 Patient arrived in ED. jj6 05:00 Galen North MD is Attending Physician. rt 05:09 Bruna Arguello, RN is Primary Nurse. kj2 05:16 Triage completed. kj2 05:27 Inserted saline lock: 22 gauge in left antecubital area, using aseptic technique. Blood ha1 collected. Flushed with 10 mL NS. 05:28 Patient has correct armband on for positive identification. Bed in low position. Call kj2 light in reach. Adult w/ patient. Provided Education on: call light, fall precautions. 05:28 No provider procedures requiring assistance completed. kj2 05:37 CMP Sent. kj2 05:37 CBC with Diff Sent. kj2 06:12 Extremity Venous Uni Ltd US In Process Unspecified. EDMS 06:12 UPPER EXTREMITY VENOUS UNILATE In Process Unspecified. EDMS 06:44 Upper Ext Angio In Process Unspecified. EDMS 07:37 Attending Physician role handed off by Galen North MD rn 07:37 Jed Levin MD is Attending Physician. rn 08:55 Pulse ox on. NIBP on. Warm blanket given. Pillow given. db 08:55 IV discontinued, intact, bleeding controlled, No redness/swelling at site. Sling db applied to right arm. 08:57 Arm band placed on Patient placed in an exam room. db Administered Medications: No medications were administered Medication: 05:28 VIS not applicable for this client. kj2 Outcome: 08:12 Discharge ordered by . rn 08:55 Discharged to home ambulatory, with family, with significant other, db 08:55 Condition: stable 08:55 Discharge instructions given to patient, significant other, Instructed on discharge instructions, follow up and referral plans. 08:57 Patient left the ED. db Signatures: Dispatcher [employer] EDMS Jed Levin MD MD rn Jeffries, Jennifer jj6 Kristen Cabezas RN RN ha1 Carole Leija RN RN db Galen North MD MD rt Bruna Arguello, PADILLA RN kj2
--- NOTE | 2024-03-02 08:13 | EDPHYS ---
Physician Documentation [facility] Name: Naomi Hdez Age: 68 yrs Sex: Female : 1955 Arrival Date: 03/02/2024 Time: 04:53 Bed 19 Private MD: ED Physician Jed Levin HPI: 03/02 07:02 This 68 yrs old Female presents to ER via Ambulatory with complaints of rt SUSPICIOUS BUMP ON ARM. 07:02 Patient with history of atrial fibrillation on Eliquis presents to the ED with rt swelling, bruising to the right upper extremity. Patient denies direct blow to the arm, states that she did lift a heavy object. Reports pain to the area as well as a pain to the posterior of the left lower extremity. Denies of acute complaints at this time, symptoms are moderate in severity, no other aggravating or elevating factors.. Historical: - Allergies: 05:16 Plavix; kj2 - Home Meds: 05:16 aspirin 81 mg Oral chew [Active]; kj2 - PMHx: 05:16 Hypertension; Rheumatoid Arthritis; kj2 - Immunization history:: Adult Immunizations unknown. - Infectious Disease History:: Denies. - Social history:: Smoking status: Patient denies any tobacco usage or history of. - Family history:: not pertinent. ROS: 07:02 Constitutional: Negative for fever, chills, and weight loss, Cardiovascular: Negative rt for chest pain, palpitations, and edema, Respiratory: Negative for shortness of breath, cough, wheezing, and pleuritic chest pain, Abdomen/GI: Negative for abdominal pain, nausea, vomiting, diarrhea, and constipation, 07:02 MS/extremity: Positive for Pain, swelling, Exam: 07:02 Constitutional: This is a well developed, well nourished patient who is awake, alert, rt and in no acute distress. Head/Face: Normocephalic, atraumatic. Chest/axilla: Normal chest wall appearance and motion. Nontender with no deformity. No lesions are appreciated. Cardiovascular: Regular rate and rhythm with a normal S1 and S2. No gallops, murmurs, or rubs. Normal PMI, no JVD. No pulse deficits. Respiratory: Lungs have equal breath sounds bilaterally, clear to auscultation and percussion. No rales, rhonchi or wheezes noted. No increased work of breathing, no retractions or nasal flaring. Abdomen/GI: Soft, non-tender, with normal bowel sounds. No distension or tympany. No guarding or rebound. No evidence of tenderness throughout. 07:02 Abdomen/GI: Bruising, apparent hematoma to the right deltoid region, patient has intact flexion and extension of the elbow. Radial pulses intact, sensation is intact, Vital Signs: 05:10 BP 151 / 53; Pulse 62; Resp 18; Temp 97.9; Pulse Ox 100% on R/A; Weight 64.41 kg; kj2 Height 4 ft. 11 in. ; Pain 6/10; 05:50 BP 152 / 68; Pulse 70; Resp 18; Pulse Ox 97% on R/A; kj2 06:52 BP 156 / 62; Pulse 73; Resp 20; Pulse Ox 96% on R/A; kj2 07:45 BP 157 / 63; Pulse 64; Resp 16; Pulse Ox 95% on R/A; db 08:30 BP 154 / 69; Pulse 67; Resp 18; Pulse Ox 98% ; db 05:10 Body Mass Index 28.68 (64.41 kg, 149.86 cm) kj2 05:10 Pain Scale: Adult kj2 MDM: 05:11 Medical Screening Exam initiated rt 08:10 Differential Diagnosis Hematoma, strain, DVT. Data reviewed: vital signs, nurses notes, rn telemetry test result(s), radiologic studies, CT scan, ultrasound, and as a result, I will discharge patient. Counseling: I had a detailed discussion with the patient and/or guardian regarding the historical points, exam findings, and any diagnostic results supporting the discharge/admit diagnosis, lab results, radiology results, the need for outpatient follow up, to return to the emergency department if symptoms worsen or persist or if there are any questions or concerns that arise at home. Special discussion: I discussed with the patient/guardian in detail that at this point there is no indication for admission to the hospital. It is understood, however, that if the symptoms persist or worsen the patient needs to return immediately for re-evaluation. ED course: Signed out to me by Dr. North, he felt this was going to be a hematoma, asked me to follow-up the ultrasound and CAT scan and if negative can go home. Imaging negative for DVT or arterial insufficiency. Extremity CAT scan shows stranding and physical exam consistent with hematoma. Afebrile. No signs of infection. Patient states has bad rotator cuff on right arm and used right arm to pull herself into a truck and thinks that is what caused the injury. Recommend ice and rest and given return precautions.. 03/02 05:23 Order name: CBC with Diff; Complete Time: 06:13 rt 03/02 05:23 Order name: CMP; Complete Time: 06:13 rt 03/02 05:23 Order name: Extremity Venous Uni Ltd US; Complete Time: 08:51 rt 03/02 05:34 Order name: UPPER EXTREMITY VENOUS UNILATE EDMS 03/02 05:36 Order name: Upper Ext Angio; Complete Time: 07:51 EDMS 03/02 08:08 Order name: Sling; Complete Time: 08:35 rn Administered Medications: No medications were administered Disposition Summary: 03/02/24 08:12 Discharge Ordered Notes: Location: Home rn Problem: new rn Symptoms: have improved rn Condition: Stable rn Diagnosis - hematoma of soft tissue rn Followup: rn - With: Private Physician - When: As needed - Reason: Recheck today's complaints, Re-evaluation by your physician Discharge Instructions: - Discharge Summary Sheet rn - Hematoma rn - How to Use a Sling rn Forms: - Medication Reconciliation Form rn - Antibiotic continuous improvement intern - Prescription Opioid Use rn - Patient Portal Instructions rn - Leadership Thank You Letter rn Signatures: [facility] Jed Levin MD MD rn [place], Ryan, MD MD rt Bruna Arguello, RN RN kj2 Corrections: (The following items were deleted from the chart) 05:34 05:24 Extremity Venous Uni Ltd+[email or web address].BRZ ordered. EDRI EDMS 05:36 05:30 CT RIGHT SHOULDER W/O CONTRAST ordered. EDRI EDMS
[2024-03-02 12:36] VITALS: TEMP 97.9
[2024-03-02 12:52] VITALS: BP 154/69; O2SAT 98
== END 2024-03-02 08:57 | disposition home or self-care (01) ==
LOC: ER 04:53
DX: M79.81 Nontraumatic hematoma of soft tissue (principal); I10 Essential (primary) hypertension; Z79.01 Long term (current) use of anticoagulants; Z79.82 Long term (current) use of aspirin
CPT/HCPCS: 85025; 36415; 80053; 73206; 93971 ×2; 99284; Q9967